=== PATIENT | male | born 1930 | race Caucasian/White ===

== ENCOUNTER 2018-02-24 13:05 | Day surgery (SDC) | payer MEDICARE, OTHER ==
[~2018-02-24] VITALS: Ht 180.3 cm; Wt 76.2 kg
[~2018-02-24 13:05] MED LIST: ASPIRIN EC81 MG PO; COLESTID5 GM PO; COMBIVENT RESPIM4 GM INH; DILTIAZEM HCL30 MG PO; LISINOPRIL-HCT1 EACH PO; MACULAR VITAMI1 EACH PO; OMEPRAZOLE40 MG PO; PROAIR HFA8.5 GM INH; SIMVASTATIN40 MG PO; SINGULAIR10 MG PO; SUCRALFATE1 GM PO
[2018-02-24] MEDS ORDERED: LISINOPRIL-HCT1 EACH PO (13:26)
--- NOTE | 2018-02-27 08:37 | OR ---
[facility] [address], [place] [address] Signed DATE OF OPERATION: SURGEON: Sophia Power MD PREOPERATIVE DIAGNOSES: Large posterior thoracic dense mass, possible lymphoma versus sarcoma. POSTOPERATIVE DIAGNOSES: Large posterior thoracic dense mass, possible lymphoma versus sarcoma. PROCEDURE: Multiple core biopsies of left posterior thoracic mass. ANESTHESIA: 1% lidocaine. INDICATION: This 87-year-old white man is a patient of DALJIT Barraza and was referred with a large dense mass of the left posterior thorax. An MRI was performed, which showed an extensive mass with central necrosis. Clinically, the mass is immovable in relation to the chest wall. A CT scan was then performed, which showed no sign of metastatic disease and the lesion appeared to be intercalated between the ribs in the left posterior thorax, but not destructive to them. The lesion is reminiscent of lymphoma based on some of these findings. On that basis, I have recommended core biopsy be obtained before definitive excision or chemotherapy as deemed appropriate. The risks of bleeding, infection, and other unforeseen complications were reviewed with the patient and his two daughters who attend to him. They understand and he wished to proceed. FINDINGS: The dense mass was about the size as it was before covering at least the size of my outstretched hand. It was very dense and immovable from the chest wall proper. Eleven core biopsies were obtained with a biopsy gun device without complication. DESCRIPTION OF PROCEDURE: The patient was placed in the lateral position in the day surgery procedure room. The left posterior thorax prepared with a chlorhexidine solution and draped sterilely. A 1% lidocaine was injected locally. A small incision was made with an #11 blade and using a 14-gauge biopsy gun, multiple biopsies were taken in various directions through the mass. There was no untoward bleeding. Eleven specimens were obtained in aggregate. A Band-Aid was applied. He tolerated the procedure well. Electronically Signed By: SOPHIA POWER MD 02/27/18 0837 PATIENT NAME: SEBLE LOPEZ OPERATIVE REPORT DATE OF : [birth year] REPORT #: [id number] PHYSICIAN: SOPHIA POWER MD PCP: LAUREL WYNNE PA-C REPORT IS CONFIDENTIAL AND NOT TO BE RELEASED WITHOUT AUTHORIZATION [facility] [address] [place] [id number] Signed ASSESSMENT AND PLAN: The lesion is suggestive of a lymphoma. Half of the specimens were placed for permanent pathology. The other will be freshened on the possibility if this represents lymphoma. If it represents sarcoma, then further treatment planning to include resection will need to be undertaken. MD BHAVYA Carey/MODL /[id number] Copies: ~ Electronically Signed By: SOPHIA POWER MD 02/27/18 0837 PATIENT NAME: SEBLE LOPEZ OPERATIVE REPORT DATE OF : [birth year] REPORT #: [id number] PHYSICIAN: SOPHIA POWER MD PCP: LAUREL WYNNE PA-C REPORT IS CONFIDENTIAL AND NOT TO BE RELEASED WITHOUT AUTHORIZATION
== END 2018-02-24 18:00 | disposition home or self-care (01) ==
LOC: OPS 13:05 → DS 13:05 → EDSTATUS 14:00 → OPS 14:00
PROC: 0J973ZX Drainage of Back Subcutaneous Tissue and Fascia, Percutaneous Approach, Diagnostic (ICD-10-PCS; principal; 2018-02-24)
DX: C85.99 Non-Hodgkin lymphoma, unspecified, extranodal and solid organ sites (principal); E78.5 Hyperlipidemia, unspecified; I10 Essential (primary) hypertension; J45.909 Unspecified asthma, uncomplicated; M15.9 Polyosteoarthritis, unspecified; K21.9 Gastro-esophageal reflux disease without esophagitis; Z88.8 Allergy status to other drugs, medicaments and biological substances; Z85.46 Personal history of malignant neoplasm of prostate; Z85.828 Personal history of other malignant neoplasm of skin
CPT/HCPCS: 88305; 88341; 88342

== ENCOUNTER 2018-05-28 15:49 | Emergency (ER) | payer MEDICARE, OTHER ==
[~2018-05-28] VITALS: Ht 180.3 cm; Wt 74.4 kg
[~2018-05-28 15:49] MED LIST changes: +ALLOPURINOL300 MG PO; +CITRUCEL500 MG PO; +HYDROCODON-ACE1 EA10 PO; +IBUPROFEN600 MG PO; +LORAZEPAM1 MG PO; +MAPAP325 MG PO; +NORCO 5-325 TA1 EACH PO; +ONDANSETRON ODT8 MG PO; +PEPCID20 MG PO; +PREDNISONE20 MG PO; +PROTONIX40 MG PO
[2018-05-30] MEDS ORDERED: SENNA8.6 MG PO (14:13)
== END 2018-05-28 18:33 | disposition home or self-care (01) ==
LOC: ED 15:49
DX: R10.2 Pelvic and perineal pain (principal); I10 Essential (primary) hypertension; E78.00 Pure hypercholesterolemia, unspecified; J45.909 Unspecified asthma, uncomplicated; C85.90 Non-Hodgkin lymphoma, unspecified, unspecified site; Z87.891 Personal history of nicotine dependence; Z88.1 Allergy status to other antibiotic agents; Z88.8 Allergy status to other drugs, medicaments and biological substances; Z79.899 Other long term (current) drug therapy; Z79.82 Long term (current) use of aspirin; Z79.52 Long term (current) use of systemic steroids
CPT/HCPCS: 80053; 81001; 85025; 96374; 99284-25; J1644

== ENCOUNTER 2019-04-14 09:37 | Observation (INO) | payer MEDICARE, OTHER ==
[~2019-04-14] VITALS: Ht 180.3 cm; Wt 74.4 kg
--- OUTSIDE RECORDS SUMMARY | ~2019-04-14 | XMS | Encounter Summary ---
Demographics + + + | Address | [address] | | | [place] [address] | + + + | Home Phone | | + + + | Preferred Language | Unknown | + + + | Marital Status | Single | + + + | Jehovah'S Witness Affiliation | Unknown | + + + | Race | Unknown | + + + | Ethnic Group | Unknown | + + + Author + + + | Author | [facility] | | | and [place] | + + + | Organization | [facility] | | | and [place] | + + + | Address | Unknown | + + + | Phone | Unavailable | + + + Support + + +---------+ + | Name | Relationship | Address | Phone | + + +---------+ + | Vicki Espinoza | ECON | Unknown | | + + +---------+ + Care Team Providers + +------+ + | Care Automatic Glove Turner And Former Name | Role | Phone | + +------+ + PCP | Unavailable | + +------+ + Encounter Details +--------+ + + + + | Date | Type | Department | Care Team | Description | +--------+ + + + + | 08/14/ | Hospital | [facility] | | | | 2002 - | Encounter | MED [facility] CAN[facility] | | | | | | CENTER [address] | | | | 11/12/ | | [place] | | | | 2002 | | [address] | | | | | | [phone] | | | +--------+ + + + + Social History + +-------+ +--------+------+ | Tobacco Use | Types | Packs/Day | Years | Date | | | | | Used | | + +-------+ +--------+------+ | Never Assessed | | | | | + +-------+ +--------+------+ + + + | Sex Assigned at | Date Recorded | | | | + + + | Not on file | | + + + + + + + | Job Start Date | Occupation | Industry | + + + + | Not on file | Not on file | Not on file | + + + + + + + + | Travel History | Travel Start | Travel End | + + + + + + | No recent travel history available. | + + documented as of this encounter Plan of Treatment Not on filedocumented as of this encounter Visit Diagnoses Not on filedocumented in this encounter"
--- OUTSIDE RECORDS SUMMARY | ~2019-04-14 | XMS | Encounter Summary ---
Demographics + + + | Address | [address] | | | [place] [address] | + + + | Home Phone | | + + + | Preferred Language | Unknown | + + + | Marital Status | Single | + + + | Denominational Affiliation | Unknown | + + + | Race | Unknown | + + + | Ethnic Group | Unknown | + + + Author + + + | Author | [facility] | | | and [place] | + + + | Organization | [facility] | | | and [place] | [...] Team Providers + +------+ + | Care Dross Skimmer Name | Role | Phone | + +------+ + PCP | Unavailable | + +------+ + Encounter Details +--------+ + + + + | Date | Type | Department | Care Team | Description | +--------+ + + + + | 04/15/ | Hospital | [facility] | | | | 2008 - | Encounter | MED CTR CANCER | | | | | | CENTER [address] | | | | 04/28/ | | [place] | | | | 2008 | | [address] | | | | | | [phone] | | | +--------+ + + + [...]
--- OUTSIDE RECORDS SUMMARY | ~2019-04-14 | XMS | Encounter Summary ---
Demographics + + + | Address | [address] | | | [place] [address] | + + + | Home Phone | | + + + | Preferred Language | Unknown | + + + | Marital Status | Single | + + + | Buddhist Affiliation | Unknown | + + + | Race | Unknown | + + + | Ethnic Group | Unknown | + + + Author + + + | Author | [facility] | | | and [place] | + + + | Organization | [facility] | | | and [place] [...] Team Providers + +------+ + | Care Medicine Man Name | Role | Phone | + +------+ + PCP | Unavailable | + +------+ + Encounter Details +--------+ + + + + | Date | Type | Department | Care Team | Description | +--------+ + + + + | 08/16/ | Hospital | [facility] | | | | 2006 - | Encounter | MED CTR CANCER | | | | | | CENTER [address] | | | | 08/26/ | | [place] | | | | 2006 | | [address] | | | | | | [phone] | | | +--------+ + + + [...]
--- OUTSIDE RECORDS SUMMARY | ~2019-04-14 | XMS | Encounter Summary ---
Demographics + + + | Address | [address] | | | [place] [address] | + + + | Home Phone | | + + + | Preferred Language | Unknown | + + + | Marital Status | Single | + + + | Amish Affiliation | Unknown | + + + | Race | Unknown | + + + | Ethnic Group | Unknown | + + + Author + + + | Author | [facility] | | | and [place] | + + + | Organization | [facility] | | | and [place] [...] Team Providers + +------+ + | Care Community Arts Centre Manager Name | Role | Phone | + +------+ + | Andrey Davenport MD | PCP | | + +------+ + Reason for Visit + + + | Reason | Comments | + + + | IDT Note | | + + + Encounter Details +--------+ + + + + | Date | Type | Department | Care Team | Description | +--------+ + + + + | 07/10/ | Telephone | [facility] | [facility] | | 2019 | | [facility] | [facility] | | | | | [facility] [address] | | | | [address] | | | | | | [place] [address] | | | | | | [phone] | | | +--------+ + + + + Social History + +-------+ +--------+ + | Tobacco Use | Types | Packs/Day | Years | Date | | | | | Used | | + +-------+ +--------+ + | Former Smoker | | 1 | 30 | Quit: 1985 | + +-------+ +--------+ + + +---+---+---+ | Smokeless Tobacco: | | | | | Never Used | | | | + +---+---+---+ + + +---------+ + | Alcohol Use | Drinks/Week | oz/Week | Comments | + + +---------+ + | No | | | Quit 4 years ago, | + + +---------+ + + + + | Sex Assigned at [...]
--- OUTSIDE RECORDS SUMMARY | ~2019-04-14 | XMS | Clinical Summary ---
Demographics + + + | Address | [address] | | | [place] [address] | + + + | Home Phone | | + + + | Preferred Language | Unknown | + + + | Marital Status | Single | + + + | Yarsanism Affiliation | Unknown | + + + | Race | White | + + + | Ethnic Group | Not or | + + + Author + + + | Author | [facility] | + + + | Organization | [facility] | + + + | Address | Unknown | + + + | Phone | Unavailable | + + + Support + + +---------+ + | Name | Relationship | Address | Phone | + + +---------+ + | Vicki Espinoza | ECON | Unknown | | + + +---------+ + Care Team Providers + +------+ + | Care Title I Instructional Assistant Name | Role | Phone | + +------+ + | Roxana Kemp PA-C | PCP | | + +------+ + Source Comments FIONA is fully live on both [facility] and [facility] InPatient.[facility] Allergies + + + + + + | Active Allergy | Reactions | Severity | Noted | Comments | | | | | Date | | + + + + + + | Fluvastatin | Myalgia | | 12/27/19 | | | | | | 18 | | + + + + + + | Levofloxacin | Rash | | 12/27/19 | | | | | | 18 | | + + + + + + | Pravastatin | Myalgia | | 12/27/19 | | | | | | 18 | | + + + + + + Medications + + + +---------+------+------+-------+ | Medication | Sig | Dispensed | Refills | Star | End | Statu | | | | | | t | Date | s | | | | | | Date | | | + + + +---------+------+------+-------+ | montelukast 10 mg | TAKE ONE TABLET BY | | 0 | | | Activ | | oral tablet | MOUTH EVERY DAY | | | | | e | + + + +---------+------+------+-------+ | | INHALE 1 PUFF BY | | 0 | | | Activ | | ipratropium-albutero | MOUTH FOUR TIMES A | | | | | e | | l 20-100 | DAY | | | | | | | mcg/actuation | | | | | | | | inhalation mist | | | | | | | + + + +---------+------+------+-------+ | aspirin EC 81 mg | Take 81 mg by mouth | | 0 | | | Activ | | oral tablet,delayed | once daily. | | | | | e | | release (DR/EC) | | | | | | | + + + +---------+------+------+-------+ | MEDICATION | Indications: MH | | 0 | | | Activ | | HELPIndications: MH | Macular Health | | | | | e | | Macular Health | | | | | | | + + + +---------+------+------+-------+ | omeprazole 40 mg | Take 40 mg by mouth | | 0 | | | Activ | | oral capsule,delayed | once daily. | | | | | e | | release(DR/EC) | | | | | | | + + + +---------+------+------+-------+ | albuterol 90 | Inhale by mouth | | 0 | | | Activ | | mcg/actuation | every four hours as | | | | | e | | inhalation HFA | needed. | | | | | | | aerosol inhaler | | | | | | | + + + +---------+------+------+-------+ | simvastatin 40 mg | Take 40 mg by mouth | | 0 | | | Activ | | oral tablet | once daily in the | | | | | e | | | evening. | | | | | | + + + +---------+------+------+-------+ Active Problems + + + | Problem | Noted Date | + + + | Epiretinal membrane, right eye | 12/26/2017 | + + + + + | Last Assessment & Plan: Mild | | -observe | + + + + + | Lamellar macular hole, right eye | 12/26/2017 | + + + + + | Last Assessment & Plan: Mild anatomical changes and symptoms | | tolerable.-Amsler grid to self monitor-surgery not indicated | |-surgery not indicated | + + + + + | Vitreomacular traction, left eye | 12/26/2017 | + + + + + | Last Assessment & Plan: Minimal symptoms, traction visible on | | OCT does not warrant surgery.-RD precautions given-note to | | [place] | + + Family History + + +------+ + | Medical History | Relation | Name | Comments | + + +------+ + | Blindness | Neg Hx | | | + + +------+ + | Cataracts | Neg Hx | | | + + +------+ + | Diabetes | Neg Hx | | | + + +------+ + | Glaucoma | Neg Hx | | | + + +------+ + | Macular degeneration | Neg Hx | | | + + +------+ + | Retinal detachment | Neg Hx | | | + + +------+ + Social History + +-------+ +--------+------+ | Tobacco Use | Types | Packs/Day | Years | Date | | | | | Used | | + +-------+ +--------+------+ | Former Smoker | | | | | + +-------+ +--------+------+ + +---+---+---+ | Smokeless Tobacco: | | | | | Never Used | | | | + +---+---+---+ + + + | Sex Assigned at [...] recent travel history available. | + + Last Filed Vital Signs Not on file Plan of Treatment + + + + + | Health Maintenance | Due Date | Last Done | Comments | + + + + + | Pneumococcal | | | | | vaccination (1 of 2 | 6 | | | | - PCV13) | | | | + + + + + | Influenza (Flu) | | 01/26/2017, 02/10/2016 | | | vaccination (#1) | 9 | | | + + + + + Results Not on filefrom Last 3 Months Insurance + +--------+ +--------+ + +--------+ | Payer | Benefi | Subscriber | Effect | Phone | Address | Type | | | t Plan | ID | yulisa | | | | | | / | | Dates | | | | | | Group | | | | | | + +--------+ +--------+ + +--------+ | MEDICARE | MEDICA | xxxxxxxxxxx | 10/27/18 | [phone] | [address] | Med[address] | | | RE A & | | [address] | [address] | [address] | | | [address] | | sent | | [place] | | | | | | | | [phone] | | + +--------+ +--------+ + +--------+ | MODA MEDICARE | MODA | xxxxxxxxx | 04/29/19 | [phone] | [address] | POS | | SUPPLEMENT | MEDICA | | 17-Pre | 4 | [id number] | | | | RE | | sent | | [place], | | | | [place]PPLE | | | | [place] [address] | | | | MENT | | | | | | + +--------+ +--------+ + +--------+ + +--------+ +--------+ + + | Guarantor Name | Accoun | Relation to | Date | Phone | Billing Address | | | t Type | Patient | of | | | | | | | | | | + +--------+ +--------+ + + | Sukh Bolden | Person | Self [birth year] | [address] | | | al/Fam | | 1931 | [phone] | [place] | | | [place] | | | [address] (Home) | [phone] | + +--------+ +--------+ + +"
--- OUTSIDE RECORDS SUMMARY | ~2019-04-14 | XMS | Encounter Summary ---
Demographics + + + | Address | [address] | | | [place] [address] | + + + | Home Phone | | + + + | Preferred Language | Unknown | + + + | Marital Status | Single | + + + | Sabianist Affiliation | Unknown | + + + | Race | Unknown | + + + | Ethnic Group | Unknown | + + + Author + + + | Author | [facility] | | | and [place] | + + + | Organization | [facility] | | | and [...] Team Providers + +------+ + | Care Universal Winding Machine Operator Name | Role | Phone | + +------+ + PCP | Unavailable | + +------+ + Encounter Details +--------+ + + + + | Date | Type | Department | Care Team | Description | +--------+ + + + + | 08/11/ | Hospital | [facility] | Jordan Escalera MD | | | 1995 | Encounter | MED CTR GENERIC OP | [address] | | | | | CONV DEPT [address] | [address] [place] [address] | | | | | [place], | [id number] | | | | | [place] [address] | | | | | | [phone] | | | +--------+ + + + [...]
--- OUTSIDE RECORDS SUMMARY | ~2019-04-14 | XMS | Encounter Summary ---
Demographics + + + | Address | [address] | | | [place] [address] | + + + | Home Phone | | + + + | Preferred Language | Unknown | + + + | Marital Status | Single | + + + | Mormon Affiliation | Unknown | + + + | Race | Unknown | + + + | Ethnic Group | Unknown | + + + Author + + + | Author | [facility] | | | and [place] | + + + | Organization | [facility] | | | and [place] [...] Team Providers + +------+ + | Care Cashier Associate Name | Role | Phone | + +------+ + | Andrey Davenport MD | PCP | | + +------+ + Reason for Visit + + + | Reason | Comments | + + + | Under Treatment | | + + + Encounter Details +--------+ + + + + | Date | Type | Department | Care Team | Description | +--------+ + + + + | 08/06/ | Hospital | [facility] | Marilyn Monroy | Diffuse large B-cell | | 2019 | Encounter | MED CTR RADIATION | MD Anupama [address] | lymphoma of | | | | [facility] [address] | [place], [place] | extranodal site | | | | [address] [place] [address] | [address] | excluding spleen and | | | | [place] [address] | | other solid organs | | | | [phone] | | (HCC) (Primary Dx) | +--------+ + + + + Social [...] + + documented as of this encounter Last Filed Vital Signs + + + + + | Vital Sign | Reading | Time Taken | Comments | + + + + + | Blood Pressure | 137/63 | 08/06/2018 10:37 AM | | | | | PDT | | + + + + + | Pulse | 94 | 08/06/2018 10:37 AM | | | | | PDT | | + + + + + | Temperature | 36.2 C (97.2 F) | 08/06/2018 10:37 AM | | | | | PDT | | + + + + + | Respiratory Rate | 16 | 08/06/2018 10:37 AM | | | | | PDT | | + + + + + | Oxygen Saturation | 95% | 08/06/2018 10:37 AM | | | | | PDT | | + + + + + | Inhaled Oxygen | - | - | | | Concentration | | | | + + + + + | Weight | 75.4 kg (166 lb 3.6 | 08/06/2018 10:37 AM | | | | oz) | PDT | | + + + + + | Height | - | - | | + + + + + | Body Mass Index | 23.8 | 07/04/2018 8:26 AM | | | | | PST | | + + + + + documented in this encounter Medications at Time of Discharge + + + +---------+--------+ + | Medication | Sig | Dispensed | Refills | Start | End Date | | | | | | Date | | + + + +---------+--------+ + | albuterol | Inhale 1 puff into | | 0 | | | | (PROVENTIL) 90 | the lungs EVERY 4 TO | | | | | | mcg/puff inhaler (ED | 6 HOURS NEEDED. | | | | | | prepack) | | | | | | + + + +---------+--------+ + | | Inhale 1 puff into | | 0 | | | | albuterol-ipratropiu | the lungs 4 times | | | | | | m (COMBIVENT | daily. | | | | | | RESPIMAT) 100-20 | | | | | | | mcg/puff inhaler | | | | | | + + + +---------+--------+ + | ASPIRIN 81 PO | Take 1 tablet by | | 0 | | | | | mouth Daily. | | | | | + + + +---------+--------+ + | Colestipol HCl | Take 1 Dose by mouth | | 0 | | | | (COLESTID) 5 g GRAN | Daily. | | | | | + + + +---------+--------+ + | | Take 1 tablet by | | 0 | | | | lisinopril-hydrochlo | mouth Daily. | | | | | | rothiazide | | | | | | | (PRINZIDE,ZESTORETIC | | | | | | | ) 20-12.5 MG per | | | | | | | tablet | | | | | | + + + +---------+--------+ + | montelukast | Take 10 mg by mouth | | 0 | | | | (SINGULAIR) 10 mg | nightly. | | | | | | tablet | | | | | | + + + +---------+--------+ + | Multiple | Take 1 tablet by | | 0 | | | | Vitamins-Minerals | mouth Daily. | | | | | | (MACULAR VITAMIN | | | | | | | BENEFIT PO) | | | | | | + + + +---------+--------+ + | pantoprazole | Take 40 mg by mouth | | 0 | | | | (PROTONIX) 40 mg | every morning | | | | | | tablet | (before breakfast). | | | | | + + + +---------+--------+ + | Polyethyl | Apply to eye 4 | | 0 | | | | Glycol-Propyl Glycol | times daily. | | | | | | (SYSTANE OP) | | | | | | + + + +---------+--------+ + | simvastatin | Take 40 mg by mouth | | 0 | | | | (ZOCOR) 40 mg tablet | nightly. | | | | | + + + +---------+--------+ + | Methylcellulose, | Take 1,000 mg by | | 0 | | | | Laxative, (CITRUCEL) | mouth Daily as | | | | 9 | | 500 MG TABS | needed. | | | | | + + + +---------+--------+ + | raNITIdine | Take 150 mg by mouth | | 0 | | | | (ZANTAC) 150 mg | 2 times daily. | | | | 9 | | tablet | | | | | | + + + +---------+--------+ + documented as of this encounter Progress Notes Marilyn Monroy MD - 08/06/2018 10:39 AM PDT Radiation Oncology Weekly On Treatment Note Diagnosis: ICD-10-CM ICD-9-CM 1. 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 Corre ctions were applied as necessary. Allergies Allergen Reactions Levofloxacin Hives Fluvastatin Other (See Comments) Pravastatin Other (See Comments) Current Outpatient Medications on File Prior to Encounter Medication Sig Dispense Refill albuterol (PROVENTIL) 90 mcg/puff inhaler (ED prepack) Inhale 1 puff into the lungs TRAVIS RY 4 TO 6 HOURS NEEDED. albuterol-ipratropium (COMBIVENT RESPIMAT) 100-20 mcg/puff inhaler Inhale 1 puff into t he lungs 4 times daily. ASPIRIN 81 PO Take 1 tablet by mouth Daily. Colestipol HCl (COLESTID) 5 g GRAN Take 1 Dose by mouth Daily. lisinopril-hydrochlorothiazide (PRINZIDE,ZESTORETIC) 20-12.5 MG per tablet Take 1 table t by mouth Daily. Methylcellulose, Laxative, (CITRUCEL) 500 MG TABS Take 1,000 mg by mouth Daily as neede d. montelukast (SINGULAIR) 10 mg tablet Take 10 mg by mouth nightly. Multiple Vitamins-Minerals (MACULAR VITAMIN BENEFIT PO) Take 1 tablet by mouth Daily. pantoprazole (PROTONIX) 40 mg tablet Take 40 mg by mouth every morning (before breakfas t). Polyethyl Glycol-Propyl Glycol (SYSTANE OP) Apply to eye 4 times daily. raNITIdine (ZANTAC) 150 mg tablet Take 150 mg by mouth 2 times daily. simvastatin (ZOCOR) 40 mg tablet Take 40 mg by mouth nightly. No current facility-administered medications on file prior to encounter. Pain assessment: Location: NA Pain Level: PAIN PROG PAIN LEVEL: 0 Wt Readings from Last 3 Encounters: 08/06/18 75.4 kg (166 lb 3.6 oz) 07/31/18 75.7 kg (166 lb 14.2 oz) 07/24/18 75.1 kg (165 lb 9.1 oz) Vitals: 08/06/18 1037 BP: 137/63 Pulse: 94 Resp: 16 Temp: 36.2 C (97.2 F) TempSrc: Temporal SpO2: 95% Weight: 75.4 kg (166 lb 3.6 oz) Physical Exam Constitutional: He appears well-developed and well-nourished. Neurological: He is alert. Skin: No rash noted. No erythema. Psychiatric: He has a normal mood and affect. Physician Assessment: 08/06/18: Sotero completes radiation today. He has done very well with treatment. No botherso me side-effects. Continues to have mild-moderate fatigue, actually felt some improvement in energy during radiation as he recovered from chemotherapy. Toxicities reviewed in nursing note. Disposition: completed treatment as planned. - Follow-up with me in 3 months, sooner if needed. - Follow-up with Dr. Flynn in [place] as directed. 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
--- OUTSIDE RECORDS SUMMARY | ~2019-04-14 | XMS | Encounter Summary ---
Demographics + + + | Address | [address] | | | [place] [address] | + + + | Home Phone | | + + + | Preferred Language | Unknown | + + + | Marital Status | Single | + + + | Denominational Affiliation | Unknown | + + + | Race | Unknown | + + + | Ethnic Group | Unknown | + + + Author + + + | Author | [facility] | | | and [place] | + + + | Organization | [facility] | | | and [place] [...] Team Providers + +------+ + | Care Exhibit Electrician Name | Role | Phone | + +------+ + | Andrey Davenport MD | PCP | | + +------+ + Encounter Details +--------+ + + + + | Date | Type | Department | Care Team | Description | +--------+ + + + + | 07/02/ | Imaging | [facility] | Provider, | | | 2019 | Exam | MED CTR EXTERNAL | MD [address] | | | | | IMAGING | [address] | | | | | [phone] | [place] [address] | | +--------+ + + + + [...] Not on filedocumented as of this encounter Procedures + +--------+ + + + | Procedure Name | Priori | Date/Time | Associated Diagnosis | Comments | | | ty | | | | + +--------+ + + + | CT CHEST ABDOMEN W | Routin | 02/13/2018 | | Results for this | | WO CONTRAST | e | 8:55 AM | | procedure are in the | | | | PDT | | results section. | + +--------+ + + + documented in this encounter Results CT Chest Abdomen w wo Contrast (02/13/2018 8:55 AM PDT) + + | Specimen | + + | | + + + + + | Narrative | Performed At | + + + | External films for comparison only | [facility] | | | | | No results will be in the chart. | | + + + + +---------+ + + | Performing | Address | City/State/Zipcode | Phone Number | | Organization | | | | + +---------+ + + | [facility] | | | | + +---------+ + + documented in this encounter Visit Diagnoses Not on filedocumented in this encounter"
--- OUTSIDE RECORDS SUMMARY | ~2019-04-14 | XMS | Encounter Summary ---
Demographics + + + | Address | [address] | | | [place] [address] | + + + | Home Phone | | + + + | Preferred Language | Unknown | + + + | Marital Status | Single | + + + | Bahai Affiliation | Unknown | + + + | Race | Unknown | + + + | Ethnic Group | Unknown | + + + Author + + + | Author | [facility] | | | and [place] | + + + | Organization | [facility] | | | and [...] Team Providers + +------+ + | Care Soft Sugar Cutter Name | Role | Phone | + +------+ + PCP | Unavailable | + +------+ + Encounter Details +--------+ + + + + | Date | Type | Department | Care Team | Description | +--------+ + + + + | 03/19/ | Hospital | [facility] | | | | 2006 - | Encounter | MED CTR CANCER | | | | | | CENTER [address] | | | | 03/28/ | | [place] | | | | 2006 | | [address] | | | | | | [phone] | | | +--------+ + + + [...]
--- OUTSIDE RECORDS SUMMARY | ~2019-04-14 | XMS | Clinical Summary ---
Demographics + + + | Address | [address] | | | [place] [address] | + + + | Home Phone | | + + + | Preferred Language | Unknown | + + + | Marital Status | Single | + + + | Moravian Affiliation | Unknown | + + + | Race | Unknown | + + + | Ethnic Group | Unknown | + + + Author + + + | Author | [facility] | | | and [place] | + + + | Organization | [facility] | | | and [place] [...] Team Providers + +------+ + | Care Streetcar Repairer Helper Name | Role | Phone | + +------+ + | Lonnie Ortega MD | PCP | | + +------+ + Allergies + + + + + + | Active Allergy | Reactions | Severity | Noted | Comments | | | | | Date | | + + + + + + | Fluvastatin | Other (See Comments) | | 12/27/19 | | | | | | 18 | | + + + + + + | Levofloxacin | Hives | High | | | + + + + + + | Pravastatin | Other (See Comments) | | | | + + + + + + Medications + + + +---------+------+------+-------+ | Medication | Sig | Dispensed | Refills | Star | End | Statu | | | | | | t | Date | s | | | | | | Date | | | + + + +---------+------+------+-------+ | ASPIRIN 81 PO | Take 1 tablet by | | 0 | | | Activ | | | mouth Daily. | | | | | e | + + + +---------+------+------+-------+ | albuterol | Inhale 1 puff into | | 0 | | | Activ | | (PROVENTIL) 90 | the lungs EVERY 4 TO | | | | | e | | mcg/puff inhaler (ED | 6 HOURS NEEDED. | | | | | | | prepack) | | | | | | | + + + +---------+------+------+-------+ | Colestipol HCl | Take 1 Dose by mouth | | 0 | | | Activ | | (COLESTID) 5 g GRAN | Daily. | | | | | e | + + + +---------+------+------+-------+ | | Inhale 1 puff into | | 0 | | | Activ | | albuterol-ipratropiu | the lungs 4 times | | | | | e | | m (COMBIVENT | daily. | | | | | | | RESPIMAT) 100-20 | | | | | | | | mcg/puff inhaler | | | | | | | + + + +---------+------+------+-------+ | | Take 1 tablet by | | 0 | | | Activ | | lisinopril-hydrochlo | mouth Daily. | | | | | e | | rothiazide | | | | | | | | (PRINZIDE,ZESTORETIC | | | | | | | | ) 20-12.5 MG per | | | | | | | | tablet | | | | | | | + + + +---------+------+------+-------+ | simvastatin | Take 40 mg by mouth | | 0 | | | Activ | | (ZOCOR) 40 mg tablet | nightly. | | | | | e | + + + +---------+------+------+-------+ | montelukast | Take 10 mg by mouth | | 0 | | | Activ | | (SINGULAIR) 10 mg | nightly. | | | | | e | | tablet | | | | | | | + + + +---------+------+------+-------+ | Multiple | Take 1 tablet by | | 0 | | | Activ | | Vitamins-Minerals | mouth Daily. | | | | | e | | (MACULAR VITAMIN | | | | | | | | BENEFIT PO) | | | | | | | + + + +---------+------+------+-------+ | pantoprazole | Take 40 mg by mouth | | 0 | | | Activ | | (PROTONIX) 40 mg | every morning | | | | | e | | tablet | (before breakfast). | | | | | | + + + +---------+------+------+-------+ | Polyethyl | Apply to eye 4 | | 0 | | | Activ | | Glycol-Propyl Glycol | times daily. | | | | | e | | (SYSTANE OP) | | | | | | | + + + +---------+------+------+-------+ | ibuprofen (ADVIL, | Take 200 mg by mouth | | 0 | | | Activ | | MOTRIN) 200 mg | every 6 hours as | | | | | e | | tablet | needed. Takes | | | | | | | | occasionally | | | | | | + + + +---------+------+------+-------+ | Famotidine (PEPCID | Take by mouth. As | | 0 | | | Activ | | PO) | needed | | | | | e | + + + +---------+------+------+-------+ Active Problems + + + | Problem | Noted Date | + + + | Port-A-Cath in place | 12/25/2018 | + + + + + | Overview: Added automatically from request for surgery [id number] | + + + + + | S/P bilateral inguinal hernia repair | 12/01/2018 | + + + | Bilateral inguinal hernia | 09/04/2018 | + + + + + | Overview: Added automatically from request for surgery [id number] | + + + + + | Allergic rhinitis | 09/02/2018 | + + + + + | Overview: No comments entered for problem. | + + + + + | Chronic wheezy bronchitis | 09/02/2018 | + + + + + | Overview: No comments entered for problem. | + + + + + | Malignant tumor of prostate | 09/02/2018 | + + + + + | Overview: No comments entered for problem. | + + + + + | Emigdio major | 09/02/2018 | + + + + + | Overview: No comments entered for problem. 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 | + + + + + | Hyperlipidemia | 02/10/2018 | + + + + + | Overview: No comments entered for problem. | + + + + + | Epiretinal membrane, right eye | 12/26/2017 | + + + + + | Overview: Last Assessment & Plan: | | Mild | | -observe | + + + + + | Lamellar macular hole, right eye | 12/26/2017 | + + + + + | Overview: Last Assessment & Plan: | | Mild anatomical changes and symptoms tolerable. | | -Amsler grid to self monitor | | -surgery not indicated | + + + + + | Vitreomacular traction, left | 12/26/2017 | + + + + + | Overview: Last Assessment & Plan: Minimal symptoms, traction | | visible on OCT does not warrant surgery.-RD precautions | | given-note to Dr. Hansen | |-note to Dr. Hansen | + + + +---+ | Hiatal hernia | | + +---+ | Diverticulitis | | + +---+ Immunizations + + + + | Name | Administration Dates | Next Due | + + + + | INFLUENZA 65 Y OR >, | 01/29/2018, 12/26/2016, 01/31/2016, | | | TRIVALENT HIGH-DOSE | 02/17/2015, 02/18/2014 | | + + + + | INFLUENZA TRIV | 02/12/2012, 02/27/2011, 02/07/2010, | | | W/PRES(PED/ADOL/ADUL | 02/09/2008, 02/04/2007 | | | T),MULTIDOSE | | | + + + + | INFLUENZA, [id number], | 04/16/2009 | | | INACTIVATED | | | + + + + | INFLUENZA, [id number], | 04/16/2009 | | | UNSPECIFIED | | | + + + + | INFLUENZA, | 01/29/2018, 01/26/2017, 02/10/2016, | | | UNSPECIFIED | 02/12/2012, 02/27/2011, 02/07/2010, | | | FORMULATION | 02/09/2008, 02/04/2007 | | + + + + | PNEUMOCOCCAL | 12/21/2014 | | | CONJUGATE 13-VALENT | | | | (PCV13) | | | + + + + | PNEUMOCOCCAL | 02/06/2016 | | | POLYSACCHARIDE | | | | 23-VALENT (PPSV23) | | | + + + + | ZOSTER, 1 DOSE | 11/07/2011 | | | (ZOSTAVAX) | | | + + + + Family History + + +------+ + | Medical History | Relation | Name | Comments | + + +------+ + | Stomach cancer | Brother | | | + + +------+ + | Cancer | Brother | | lukemia | + + +------+ + | Breast cancer | Daughter | | | + + +------+ + | Cancer | Daughter | | Melanoma | + + +------+ + | Colon cancer | Father | | | + + +------+ + | Stomach cancer | Mother | | | + + +------+ + | Stomach cancer | Sister | | | + + +------+ + | Stomach cancer | Sister | | | + + +------+ + | Cancer | Son | | | + + +------+ + + +------+ + + | Relation | Name | Status | Comments | + +------+ + + | Brother | | | | + +------+ + + | Brother | | | | + +------+ + + | Daughter | | | | + +------+ + + | Daughter | | | | + +------+ + + | Father | | | | + +------+ + + | Mother | | | | + +------+ + + | Sister | | | | + +------+ + + | Sister | | | | + +------+ + + | Son | | | | + +------+ + + Social History + +-------+ +--------+ [...] | + + Last Filed Vital Signs + + + + + | Vital Sign | Reading | Time Taken | Comments | + + + + + | Blood Pressure | 126/66 | 01/07/2019 8:55 AM | | | | | PDT | | + + + + + | Pulse | 73 | 01/07/2019 8:55 AM | | | | | PDT | | + + + + + | Temperature | 36.4 C (97.5 F) | 01/07/2019 8:55 AM | | | | | PDT | | + + + + + | Respiratory Rate | 16 | 11/05/2018 10:43 AM | | | | | PDT | | + + + + + | Oxygen Saturation | 99% | 01/07/2019 8:55 AM | | | | | PDT | | + + + + + | Inhaled Oxygen | - | - | | | Concentration | | | | + + + + + | Weight | 76.1 kg (167 lb 12.3 | 01/07/2019 8:55 AM | | | | oz) | PDT | | + + + + + | Height | 177.8 cm (5' 10") | 01/07/2019 8:55 AM | | | | | PDT | | + + + + + | Body Mass Index | 24.07 | 01/07/2019 8:55 AM | | | | | PDT | | + + + + + Plan of Treatment + + + + + | Health Maintenance | Due Date | Last Done | Comments | + + + + + | Vaccine: | | | | | Dtap/Tdap/Td (1 - | 0 | | | | Tdap) | | | | + + + + + | Vaccine: Zoster (2 | | 11/07/2011 | | | of 3) | 2 | | | + + + + + | Adult Annual | | | | | Wellness Visit | 8 | | | + + + + + | Vaccine: Influenza | | 01/29/2018, 01/29/2018, | | | (#1) | 9 | 01/26/2017, Additional history | | | | | exists | | + + + + + | Vaccine: | Completed | 02/06/2016, 12/21/2014 | | | Pneumococcal 65+ | | | | + + + [...] + +--------+ | MEDICARE | MEDICA | [id number] | 10/27/18 | [phone] | | Medica | | | RE | | 96-Pre | 5 | | re | | | PART A | | sent | | | | | | AND B | | | | | | + +--------+ +--------+ + +--------+ | MODA | MODA | [id number] | 04/29/19 | [phone] | [address] | Indemn | | | HEALTH | | 17-Pre | 9 | [id number] | ity | | | MDCR | | sent | | [place], | | | | [place] | | | | [place] [address] | | + +--------+ +--------+ + +--------+ [...] Self | [birth year] | [address] | | | al/Fam | | 1931 | [phone] | [place] [address] | | | leigha | | | 8 (Home) | | + +--------+ +--------+ + + Advance Directives + + + + + | Type | Date Recorded | Patient | Explanation | | | | Health Care Analyst | | + + + + + | Power of | | | | | Stock Lifter | | | | + + + + + | Advance | | | | | Directive | | | | + + + + +
--- OUTSIDE RECORDS SUMMARY | ~2019-04-14 | XMS | Encounter Summary ---
Demographics + + + | Address | [address] | | | [place] [address] | + + + | Home Phone | | + + + | Preferred Language | Unknown | + + + | Marital Status | Single | + + + | Cheondoism Affiliation | Unknown | + + + | Race | Unknown | + + + | Ethnic Group | Unknown | + + + Author + + + | Author | [facility] | | | and [place] | + + + | Organization | [facility] [...] Team Providers + +------+ + | Care Information Systems Security Developer Name | Role | Phone | + +------+ + PCP | Unavailable | + +------+ + Encounter Details +--------+ + + + + | Date | Type | Department | Care Team | Description | +--------+ + + + + | 03/19/ | Hospital | [facility] | | | | 2006 - | Encounter | MED CTR CANC[facility] | | | | | | CENTER [address] | | | | 03/28/ | | [place] | | | | 2006 | | [address] | | | | | | [phone] | | | +--------+ + + + [...]
--- OUTSIDE RECORDS SUMMARY | ~2019-04-14 | XMS | Encounter Summary ---
Demographics + + + | Address | [address] | | | [place] [address] | + + + | Home Phone | | + + + | Preferred Language | Unknown | + + + | Marital Status | Single | + + + | Judaism Affiliation | Unknown | + + + | Race | Unknown | + + + | Ethnic Group | Unknown | + + + Author + + + | Author | [facility] | | | and [place] | + + + | Organization | [facility] | | [...] Team Providers + +------+ + | Care Inside Sales Person Name | Role | Phone | + +------+ + | Lonnie Ortega MD | PCP | | + +------+ + Reason for Referral Evaluate & Treat (Routine) +--------+ + + + + + | Status | Reason | Specialty | Diagnoses / | Referred By | Referred To | | | | | Procedures | Contact | Contact | +--------+ + + + + + | Closed | Specialty | Surgery / | Diagnoses | Wilfred, | Wilfred, | | | Services | General | Other | MD Ciara | MD Ciara | | | Required | Surgery | specified | [address] | [address] | | | | | type of | [place], | | | | | non-Hodgkin | [place], [place] | [place] [address] | | | | | lymphoma, | [address] | Phone: | | | | | unspecified | Phone: | [phone] | | | | | body region | [phone] | Fax: | | | | | (HCC) | Fax: | [phone] | | | | | | [phone] | | +--------+ + + + + + Reason for Visit + + + | Reason | Comments | + + + | New Patient | Power port removal | + + + Evaluate & Treat (Routine) + +--------+ + + + + | Status | Reason | Specialty | Diagnoses / | Referred By | Referred To | | | | | Procedures | Contact | Contact | + +--------+ + + + + | Authorized | | General | Diagnoses | | [facility] | | | | Surgery | Non-Hodgkin | Gee, | General | | | | | lymphoma, | Michael C, | Surgery [address] | | | | | unspecified, | [address] | | | | | unspecified | [place], | [place], | | | | | site (HCC) | [address] | [place] [address] | | | | | Procedures | [place], | Phone: | | | | | [place] [facility] | [place] [address] | [phone] | | | | | OUTPATIENT | | Fax: | | | | | NEW 45 | | [phone] | | | | | MINUTES | | | + +--------+ + + + + Encounter Details +--------+---------+ + + + | Date | Type | Department | Care Team | Description | +--------+---------+ + + + | 12/25/ | Office | [facility] | Ciara Hardin MD | Other specified type | | 2019 | Visit | SURGERY [address] | [address] [place] | of non-Hodgkin | | | | ST [place], [place] | [place] [address] | lymphoma, | | | | [address] | [phone] | unspecified body | | | | [phone] | | region (HCC) | | | | | | (Primary Dx); | | | | | | Diffuse large B-cell | | | | | | lymphoma of | | | | | | extranodal site | | | | | | excluding spleen and | | | | | | other solid organs | | | | | | (HCC) | +--------+---------+ + + + Social History + +-------+ [...] + + + | Blood Pressure | 108/52 | 12/25/2018 9:47 AM | | | | | PDT | | + + + + + | Pulse | 82 | 12/25/2018 9:47 AM | | | | | PDT | | + + + + + | Temperature | 36.6 C (97.9 F) | 12/25/2018 9:47 AM | | | | | PDT | | + + + + + | Respiratory Rate | - | - | | + + + + + | Oxygen Saturation | 96% | 12/25/2018 9:47 AM | | | | | PDT | | + + + + + | Inhaled Oxygen | - | - | | | Concentration | | | | + + + + + | Weight | 73.1 kg (161 lb 2.5 | 12/25/2018 9:47 AM | | | | oz) | PDT | | + + + + + | Height | 178 cm (5' 10.08") | 12/25/2018 9:47 AM | | | | | PDT | | + + + + + | Body Mass Index | 23.07 | 12/25/2018 9:47 AM | | | | | PDT | | + + + + + documented in this encounter Progress Notes Ciara Hardin MD - 12/25/2018 10:00 AM PDT Consult Note Referring Provider: Michael Flynn, * HISTORY OF PRESENT ILLNESS Sukh Bolden is a 88 y.o. male patient of Lonnie Ortega MD here today for evaluation of power port removal. Physician notes: Sotero is an 88-year-old male here for evaluation of PowerPort removal. He was recently diagn osed with and treated for lymphoma. He is now thought to be in remission and is no longer i n need of his PowerPort. Port was placed in February 2018 in the left chest with a catheter in the left subclavian vein. He states over and to the lateral side of the port is tender to palpation. AI Score: 5 AI Risk Score 12/25/2018 Risk for Obstructive Sleep Apnea Suspected Risk for AI Opioid Risk Tool (ORT): Total Score 0 (12/25/18 5942) Interpretation of Total Score: 0 to 3 = Low risk: 6% chance of developing problematic behav iors, 4 to 7 = Moderate risk: 28% chance of developing problematic behaviors, 8 or more = Hi gh risk: 90% chance of developing problematic behaviors. Imaging/ Pathology: none Lonnie Ortega MD's notes were reviewed in clinic today. PAST MEDICAL HISTORY Past Medical History: Diagnosis Date Asthma Basal cell carcinoma of nose COPD (chronic obstructive pulmonary disease) (HCC) Diverticulitis GERD (gastroesophageal reflux disease) Hiatal hernia Hyperlipidemia Hypertension Kidney cyst, acquired Macular degeneration disease Non Hodgkin's lymphoma (HCC) Osteoarthritis Prostate cancer (HCC) s/p external beam radiation Schatzki's ring of distal esophagus s/p dilatiation Past Surgical History: Procedure Laterality Date BRACHYTHERAPY prostate seed implants per Dr. Alaniz COLONOSCOPY ESOPHAGEAL DILATATION X3 HERNIA REPAIR Bilateral 10/06/2018 Robotic assisted laparoscopic bilateral inguinal herniorrhaphy with mesh: Dr. Graham Whaley INSERT VENOUS ACCESS PORT 03/06/[address] De La Rosa UPPER GASTROINTESTINAL ENDOSCOPY Allergies: Allergies Allergen Reactions Levofloxacin Hives Fluvastatin Other (See Comments) Pravastatin Other (See Comments) Medications: Outpatient Encounter Medications as of 12/25/2018 Medication Sig Dispense Refill albuterol (PROVENTIL) 90 mcg/puff inhaler (ED prepack) Inhale 1 puff into the lungs TRAVIS RY 4 TO 6 HOURS NEEDED. albuterol-ipratropium (COMBIVENT RESPIMAT) 100-20 mcg/puff inhaler Inhale 1 puff into t he lungs 4 times daily. ASPIRIN 81 PO Take 1 tablet by mouth Daily. Colestipol HCl (COLESTID) 5 g GRAN Take 1 Dose by mouth Daily. Famotidine (PEPCID PO) Take by mouth. As needed ibuprofen (ADVIL, MOTRIN) 200 mg tablet Take 200 mg by mouth every 6 hours as needed. T akes occasionally lisinopril-hydrochlorothiazide (PRINZIDE,ZESTORETIC) 20-12.5 MG per tablet Take 1 table t by mouth Daily. [DISCONTINUED] Methylcellulose, Laxative, (CITRUCEL) 500 MG TABS Take 1,000 mg by mouth Daily as needed. montelukast (SINGULAIR) 10 mg tablet Take 10 mg by mouth nightly. Multiple Vitamins-Minerals (MACULAR VITAMIN BENEFIT PO) Take 1 tablet by mouth Daily. pantoprazole (PROTONIX) 40 mg tablet Take 40 mg by mouth every morning (before breakfas t). Polyethyl Glycol-Propyl Glycol (SYSTANE OP) Apply to eye 4 times daily. [DISCONTINUED] raNITIdine (ZANTAC) 150 mg tablet Take 150 mg by mouth 2 times daily. simvastatin (ZOCOR) 40 mg tablet Take 40 mg by mouth nightly. No facility-administered encounter medications on file as of 12/25/2018. Family History Problem Relation Age of Onset Stomach cancer Mother Colon cancer Father Stomach cancer Sister Stomach cancer Brother Stomach cancer Sister Cancer Brother lukemia Cancer Son Breast cancer Daughter Cancer Daughter Melanoma Social History Socioeconomic History Marital status: Single Spouse name: Not on file Number of children: Not on file Years of education: Not on file Highest education level: Not on file Tobacco Use Smoking status: Former Smoker Packs/day: 1.00 Years: 30.00 Pack years: 30.00 Last attempt to quit: 1985 Years since quittin.6 Smokeless tobacco: Never Used Substance and Sexual Activity Alcohol use: No Comment: Quit 4 years ago, Drug use: Never REVIEW OF SYSTEMS: Unmarked boxes mean negative response. General: []Weight loss/gain (over 10 lbs) []Fever/chills []Night sweats Hematologic: []Bleeding/brusing tendencies []Blood transfusion []Anemia Heent: [x]Vision loss []Hearing loss []Sinus problems/nose bleeds []Hoarseness Respiratory: []Wheezing [x]Shortness of breath []Cough []Spitting up blood []On oxygen []Use CPAP machine Cardiac: []Chest pain []Palpitations/heart racing []Swelling of ankles/hands []Unusual shortness of breath []Difficulty sleeping flat Gastrointestinal: []Nausea/vomiting [x]Difficulty swallowing [x]Heartburn []Loss of appetite []Abdominal pain [x]Stom ach Ulcers []Diarrhea []Constipation []B lack or bloody stools Vascular: []Strokes/TIAs []Fainting []Difficulty with speech [x]Leg cramps []Pain in feet/legs at rest []Foot ulcers/s ores []Varicose veins []Phlebitis/blood clots Musculoskeletal: [x]Joint stiffness/swelling []Joint pain []Back pain [x]Arthritis []Gout Urologic: []Blood in urine []Frequent urination at night []Burning/painful urination []Kidney stones []Difficult urination [x]Sexual difficulties Neuro/Psychiatric: []Headaches []Seizures []Depression []Anxiety attacks []Memory loss or confusion PHYSICAL EXAM BP 108/52 | Pulse 82 | Temp 36.6 C (97.9 F) (Temporal) | Ht 1.78 m (5' 10.08") | Wt 73.1 kg (161 lb 2.5 oz) | SpO2 96% | BMI 23.07 kg/m Gen Catracho - alert, cooperative and no distress Head - normocephalic, without obvious abnormality, atraumatic Eyes - PERRL, conjunctiva/corneas clear, EOM's intact both eyes, sclera non-icteric ENT - mucous membranes moist Neck - trachea midline Lungs - no respiratory distress, no wheezing. On the left chest there is a well-healed port site incision and palpable port the catheter palpated going just under the left clavicl e Heart - regular rate and rhythm Abdomen - soft and nondistended Extremities - no tenderness, no deformities Integument - well hydrated, no obvious lesions on exposed skin, non-icteric Neurologic - alert and oriented, CN II-XII grossly intact. Psychiatric - speech and behavior appropriate, normal affect Assessment /Plan Sukh was seen today for new patient. 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 Risks and possible complications includin g infection, bleeding, wide/disfigured scar, pain, numbness, recurrence, rare risks of local anesthesia--allergy and other unforeseen complications were explained. No guarantees given or implied. Ciara Hardin MD CC PCP: Lonnie Ortega MD Portions of this chart may have been created with [employer] voice recognition software. Occasi onal wrong-word or sound-alike substitutions may have occurred due to the inherent reaves itations of voice recognition software. Please read the chart carefully and recognize, using context, where these substitutions have occurred. 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
--- OUTSIDE RECORDS SUMMARY | ~2019-04-14 | XMS | Encounter Summary ---
Demographics + + + | Address | [address] | | | [place] [address] | + + + | Home Phone | | + + + | Preferred Language | Unknown | + + + | Marital Status | Single | + + + | Restorationism Affiliation | Unknown | + + + | Race | Unknown | + + + | Ethnic Group | Unknown | + + + Author + + + | Author | [facility] | | | and [place] | + + + | Organization | [facility] | | | and [...] Team Providers + +------+ + | Care Roller Operator Name | Role | Phone | + +------+ + PCP | Unavailable | + +------+ + Encounter Details +--------+ + + + + | Date | Type | Department | Care Team | Description | +--------+ + + + + | 10/15/ | Hospital | [facility] | | | | 2008 - | Encounter | MED CTR CANCER | | | | | | CENTER [address] | | | | 10/26/ | | [place] | | | | 2008 | | [address] | | | | | | [phone] | | | +--------+ + + + [...]
--- OUTSIDE RECORDS SUMMARY | ~2019-04-14 | XMS | Encounter Summary ---
Demographics + + + | Address | [address] | | | [place] [address] | + + + | Home Phone | | + + + | Preferred Language | Unknown | + + + | Marital Status | Single | + + + | Methodist Affiliation | Unknown | + + + | Race | Unknown | + + + | Ethnic Group | Unknown | + + + Author + + + | Author | [facility] | | | and [place] | + + + | Organization | [facility] | | | and [place] [...] Team Providers + +------+ + | Care Field Mechanic Name | Role | Phone | + +------+ + PCP | Unavailable | + +------+ + Encounter Details +--------+ + + + + | Date | Type | Department | Care Team | Description | +--------+ + + + + | 04/13/ | Hospital | [facility] | | | | 2007 - | Encounter | MED CTR CANCER | | | | | | CENTER [address] | | | | 04/28/ | | [place] | | | | 2007 | | [address] | | | | | | [phone] | | | +--------+ + + + [...]
--- OUTSIDE RECORDS SUMMARY | ~2019-04-14 | XMS | Encounter Summary ---
Demographics + + + | Address | [address] | | | [place] [address] | + + + | Home Phone | | + + + | Preferred Language | Unknown | + + + | Marital Status | Single | + + + | Congregational Affiliation | Unknown | + + + | Race | Unknown | + + + | Ethnic Group | Unknown | + + + Author + + + | Author | [facility] | | | and [place] | + + + | Organization | [facility] | | | and [place] | + [...] Team Providers + +------+ + | Care Opinion Polls Survey Worker Name | Role | Phone | + +------+ + | Andrey Davenport MD | PCP | | + +------+ + Encounter Details +--------+ + + + + | Date | Type | Department | Care Team | Description | +--------+ + + + + | 08/02/ | Hospital | [facility] | Marilyn Monroy | | | 2019 | Encounter | MED CTR RADIATION | MD Anupama [address] | | | | | ONCOLOGY [address] | [place] | | | | | [place], | [address] | | | | | [place] [address] | | | | | | [phone] | | | +--------+ + + + [...] + + documented as of this encounter Medications at Time of Discharge [...] +---------+--------+ + documented as of this encounter Plan of Treatment Not on filedocumented as of this encounter Visit Diagnoses Not on filedocumented in this encounter"
--- OUTSIDE RECORDS SUMMARY | ~2019-04-14 | XMS | Encounter Summary ---
Demographics + + + | Address | [address] | | | [place] [address] | + + + | Home Phone | | + + + | Preferred Language | Unknown | + + + | Marital Status | Single | + + + | Scientology Affiliation | Unknown | + + + | Race | Unknown | + + + | Ethnic Group | Unknown | + + + Author + + + | Author | [facility] | | | and [place] | + + + | Organization | [facility] | | | and [...] Team Providers + +------+ + | Care Operation Supervisor Name | Role | Phone | + +------+ + PCP | Unavailable | + +------+ + Encounter Details +--------+ + + + + | Date | Type | Department | Care Team | Description | +--------+ + + + + | 09/08/ | Hospital | [facility] | | | | 2007 - | Encounter | MED CTR CANCER | | | | | | CENTER [address] | | | | 09/26/ | | [place] | | | | 2007 | | [address] | | | | | | [phone] | | | +--------+ + + + [...]
--- OUTSIDE RECORDS SUMMARY | ~2019-04-14 | XMS | Encounter Summary ---
Demographics + + + | Address | [address] | | | [place] [address] | + + + | Home Phone | | + + + | Preferred Language | Unknown | + + + | Marital Status | Single | + + + | Gnosticism Affiliation | Unknown | + + + | Race | Unknown | + + + | Ethnic Group | Unknown | + + + Author + + + | Author | [facility] | | | and [place] | + + + | Organization | [facility] | | | and [place] | + + + | Address | Unknown | + + + | Phone | Unavailable | + + + Support + + +---------+ + | Name | Relationship | Address | Phone | + + +---------+ + | Vicki Esipnoza | ECON | Unknown | | + + +---------+ + Care Team Providers + +------+ + | Care Magnetometer Operator Name | Role | Phone | [...] | +--------+ + + + + | 07/24/ | Hospital | [facility] | Marilyn Monroy | Diffuse large B-cell | | 2019 | Encounter | MED CTR RADIATION | MD Anupama [address] | lymphoma of | | | | ONCOLOGY CLINIC [address] | [place], [place] | extranodal site | | | | [address] [place] | [address] | excluding spleen and | | | | [place] [address] | | other solid organs | | | | [phone] | | (HCC) (Primary Dx) | +--------+ [...] + + + | Blood Pressure | 148/65 | 07/24/2018 10:27 AM | | | | | PDT | | + + + + + | Pulse | 70 | 07/24/2018 10:27 AM | | | | | PDT | | + + + + + | Temperature | 36.7 C (98 F) | 07/24/2018 10:27 AM | | | | | PDT | | + + + + + | Respiratory Rate | 16 | 07/24/2018 10:27 AM | | | | | PDT | | + + + + + | Oxygen Saturation | 98% | 07/24/2018 10:27 AM | | | | | PDT | | + + + + + | Inhaled Oxygen | - | - | | | Concentration | | | | + + + + + | Weight | 75.1 kg (165 lb 9.1 | 07/24/2018 10:27 AM | | | | oz) | PDT | | + + + + + | Height | - | - | | + + + + + | Body Mass Index | 23.7 | 07/04/2018 8:26 AM | | | [...] encounter Progress Notes Marilyn Monroy MD - 07/24/2018 10:35 AM PDT Radiation Oncology Weekly On Treatment Note Diagnosis: ICD-10-CM ICD-9-CM 1. 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 Corre ctions were applied as necessary. Allergies Allergen Reactions Levofloxacin Hives Fluvastatin Other (See Comments) Pravastatin Other (See Comments) Current Outpatient Prescriptions on File Prior to Encounter Medication Sig [...] file prior to encounter. Pain assessment: Location: Throat Pain Level: PAIN PROG PAIN LEVEL: 1 Pain Quality: Stable "irritation" Current pain regimen: NA Wt Readings from Last 3 Encounters: 07/24/18 75.1 kg (165 lb 9.1 oz) 07/17/18 73.9 kg (162 lb 14.7 oz) 07/04/18 73.8 kg (162 lb 11.2 oz) Vitals: 07/24/18 1027 BP: 148/65 Pulse: 70 Resp: 16 Temp: 36.7 C (98 F) TempSrc: Temporal SpO2: 98% Weight: 75.1 kg (165 lb 9.1 oz) Physical Exam Constitutional: He appears well-developed and well-nourished. Neurological: He is alert. Skin: No rash noted. No erythema. Psychiatric: He has a normal mood and affect. Physician Assessment: 07/24/18: Sotero is in his second week of radiation. He is doing very well with treatment. [facility] fatigue report. No skin irritation. Toxicities reviewed in nursing note. Disposition: Continue radiation treatment as planned. Skin care with emollient lotion. 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
--- OUTSIDE RECORDS SUMMARY | ~2019-04-14 | XMS | Encounter Summary ---
Demographics + + + | Address | [address] | | | [place] [address] | + + + | Home Phone | | + + + | Preferred Language | Unknown | + + + | Marital Status | Single | + + + | Religion Affiliation | Unknown | + + + | Race | Unknown | + + + | Ethnic Group | Unknown | + + + Author + + + | Author | [facility] | | | and [place] | + + + | Organization | [facility] | | | and [place] | [...] Team Providers + +------+ + | Care Alliance Consultant Name | Role | Phone | + +------+ + | Andrey Davenport MD | PCP | | + +------+ + Encounter Details +--------+ + + + + | Date | Type | Department | Care Team | Description | +--------+ + + + + | 07/17/ | Imaging | [facility] | Provider, | | | 2019 | Exam | MED CTR EXTERNAL | MD [address] | | | | | IMAGING | [address] | | | | | [phone] | [place] [address] | | +--------+ + + + + [...] | + +--------+ + + + | PET CT SKULL BASE TO | Routin | 07/16/2018 | | Results for this | | MID THIGH | e | 12:10 PM | | procedure are in the | | | | PDT | | results section. | + +--------+ + + + documented in this encounter Results PET CT Skull Base To Mid Thigh (07/16/2018 12:10 PM PDT) + + | Specimen | + [...]
--- OUTSIDE RECORDS SUMMARY | ~2019-04-14 | XMS | Encounter Summary ---
Demographics + + + | Address | [address] | | | [place] [address] | + + + | Home Phone [...] + + | Organization | [facility] | | | and [...] Providers + +------+ + | Care Medical Diagnostic Radiographer Name | Role | Phone | + [...] [address] | | | | | [phone] | [place] [address] | | +--------+ + + + + [...] | + +--------+ + + + | MRI CHEST W WO | Routin | 02/12/2018 | | Results for this | | CONTRAST | e | 8:10 AM | | procedure are in the | | | | PDT | | results section. | + +--------+ + + + documented in this encounter Results MRI Chest w wo Contrast (02/12/2018 8:10 AM PDT) + + | Specimen | [...]
--- OUTSIDE RECORDS SUMMARY | ~2019-04-14 | XMS | Encounter Summary ---
Demographics + + + | Address | [address] | | | [place] [address] | + + + | Home Phone | | + + + | Preferred Language | Unknown | + + + | Marital Status | Single | + + + | Gnosticist Affiliation | Unknown | + + + | Race | Unknown | + + + | Ethnic Group | Unknown | + + + Author + + + | Author | [facility] | | | and [place] | + + + | Organization | [facility] | | | and [place] [...] Team Providers + +------+ + | Care Service Desk Lead Name | Role | Phone | + +------+ + | Andrey Davenport MD | PCP | | + +------+ + Reason for Referral Diagnostic/Screening (Routine) +--------+--------+ + + + + | Status | Reason | Specialty | Diagnoses / | Referred By | Referred To | | | | | Procedures | Contact | Contact | +--------+--------+ + + + + | Closed | | Radiology | Diagnoses | [place], | [address] | | | | | 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, | [address]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 [address] | [place], | | | | | lymphoma of | [address] | [place] [address] | | | | | extranodal | [place], | Phone: | | | | | site | [place] [address] | [phone] | | | | | excluding | Phone: | Fax: | | | | | spleen and | [phone] | [phone] | | | | | other solid | Fax: | | | | | | organs (HCC) | [phone] | | | | | | Procedures | | | | | | | CT | | | | | | | Treatment | | | | | | | Plan Complex | | | | | | | CT TX PLAN | | | +--------+--------+ + + + + Encounter Details +--------+ + + + + | Date | Type | Department | Care Team | Description | +--------+ + + + + | 07/09/ | Hospital | [facility] | Marilyn Monroy | Diffuse large B-cell | | 2019 | Encounter | MED CTR [address] | MMD [address] | lymphoma of | | | | [place], | [place], [place] | extranodal site | | | | [place] [address] | [address] | excluding spleen and | | | | [phone] | | other solid organs | | | | | | (HCC) | +--------+ + + + + Social [...] + +--------+ + + + | CT TREATMENT PLAN | Routin | 07/09/2018 | Diffuse large | Results for this | | COMPLEX | e | 10:28 AM | B-cell lymphoma of | procedure are in the | | | | PDT | extranodal site | results section. | | | | | excluding spleen and | | | | | | other solid organs | | | | | | (HCC) | | + +--------+ + + + documented in this encounter Results CT Treatment Plan Complex (07/09/2018 10:28 AM PDT) + + | Specimen | + + | | + + + + + | Narrative | Performed At | + + + | This exam has been auto-finalized and the interpretation may exist | [facility] | | elsewhere in the chart. 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
--- OUTSIDE RECORDS SUMMARY | ~2019-04-14 | XMS | Encounter Summary ---
Demographics + + + | Address | [address] | | | [place] [address] | + + + | Home Phone | | + + + | Preferred Language | Unknown | + + + | Marital Status | Single | + + + | Synagogue Affiliation | Unknown | + + + | Race | Unknown | + + + | Ethnic Group | Unknown | + + + Author + + + | Author | [facility] | | | and [place] | + + + | Organization | [facility] | | | and [place] [...] Providers + +------+ + | Care Senior Corporate Strategy Manager Name | Role | Phone | + +------+ + | Andrey Davenport MD | PCP | | + +------+ + Encounter Details +--------+ + + + + | Date | Type | Department | Care Team | Description | +--------+ + + + + | 07/31/ | Hospital | [facility] | Austin Tinajero DO | Diffuse large B-cell | | 2019 | Encounter | MED CTR RADIATION | [address] | lymphoma of | | | | [facility]OGY CL[facility] [address] | [place] | extranodal site | | | | [place] | [address] | excluding spleen and | | | | [place] [address] | | other solid organs | | | | [phone] | | (HCC) (Primary Dx) | +--------+ [...] + + + | Blood Pressure | 138/63 | 07/31/2018 10:05 AM | | | | | PDT | | + + + + + | Pulse | 64 | 07/31/2018 10:05 AM | | | | | PDT | | + + + + + | Temperature | 36.9 C (98.4 F) | 07/31/2018 10:05 AM | | | | | PDT | | + + + + + | Respiratory Rate | 14 | 07/31/2018 10:05 AM | | | | | PDT | | + + + + + | Oxygen Saturation | 97% | 07/31/2018 10:05 AM | | | | | PDT | | + + + + + | Inhaled Oxygen | - | - | | | Concentration | | | | + + + + + | Weight | 75.7 kg (166 lb 14.2 | 07/31/2018 10:05 AM | | | | oz) | PDT | | + + + + + | Height | - | - | | + + + + + | Body Mass Index | 23.89 | 07/04/2018 8:26 AM | | | [...] documented as of this encounter Progress Notes Austin Tinajero DO - 07/31/2018 10:08 AM PDT Radiation Oncology Weekly On Treatment Note Diagnosis: ICD-10-CM ICD-9-CM 1. 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 Vital signs are normal. He appea rs well-developed and well-nourished. No distress. HENT: Head: Normocephalic and atraumatic. Eyes: Conjunctivae and EOM are normal. Neck: Trachea normal. Cardiovascular: Normal rate. Pulmonary/Chest: Effort normal and breath sounds normal. No accessory muscle usage. No resp iratory distress. Musculoskeletal: Normal range of motion. Neurological: He is oriented to person, place, and time. He has normal strength. Psychiatric: He has a normal mood and affect. His behavior is normal. Cognition and memory are normal. Nursing note and vitals reviewed. Physician Assessment: Overall, he is tolerating treatment well with no specific concerns or complaints this week other than he has noticed fatigue.Acute toxicities reviewed. He will complete treatment saturday. Toxicities reviewed in nursing note. Disposition: Continue radiation treatment as planned. Austin Tinajero DO Radiation Oncologist Inga Paredes RN - 07/31/2018 10:08 AM PDT 07/31/18 1008 General Disorders and Administration Site Conditions Fatigue 1 - Grade 1 Respiratory Thoracic and Mediastinal Cough 0 - Grade 0 Dyspnea 0 - Grade 0 Performance Status [...]
--- OUTSIDE RECORDS SUMMARY | ~2019-04-14 | XMS | Encounter Summary ---
Demographics + + + | Address | [address] | | | [place] [address] | + + + | Home Phone | | + + + | Preferred Language | Unknown | + + + | Marital Status | Single | + + + | Tenriism Affiliation | Unknown | + + + | Race | Unknown | + + + | Ethnic Group | Unknown | + + + Author + + + | Author | [facility] | | | and [place] | + + + | Organization | [facility] | | | and [place] [...] Team Providers + +------+ + | Care Protocol Officer Name | Role | Phone | + +------+ + | Andrey Davenport MD | PCP | | + +------+ + Encounter Details +--------+ + + + + | Date | Type | Department | Care Team | Description | +--------+ + + + + | 07/02/ | Abstract | [facility] | Marilyn Monroy | | | 2019 | | MED CTR RADIATION | MD [place]upama [address] | | | | | ONCOLOGY CLINIC [address] | [facility] [place] | | | | | [address] | [id number] | | | | | [place] [address] | | | | | | [phone] | | | +--------+ + + + [...]
--- OUTSIDE RECORDS SUMMARY | ~2019-04-14 | XMS | Encounter Summary ---
Demographics + + + | Address | [address] | | | [place] [address] | + + + | Home Phone | | + + + | Preferred Language | Unknown | + + + | Marital Status | Single | + + + | Cheondoism Affiliation | Unknown | + + + | Race | Unknown | + + + | Ethnic Group | Unknown | + + + Author + + + | Author | [facility] | | | and [place] | + + + | Organization | [facility] | | | [...] Team Providers + +------+ + | Care Learning Engineer Name | Role | Phone | + +------+ + PCP | Unavailable | + +------+ + Encounter Details +--------+ + + + + | Date | Type | Department | Care Team | Description | +--------+ + + + + | 08/19/ | Hospital | [facility] | Jordan Escalera MD | | | 1995 | Encounter | MED CTR MP INTRA OP | [address] | | | | | [address] | [address] [place] | | | | | [place] | [address] | | | | | [address] | | | | | | [phone] | | | +--------+ + + + [...]
--- OUTSIDE RECORDS SUMMARY | ~2019-04-14 | XMS | Encounter Summary ---
Demographics + + + | Address | [address] | | | [place] [address] | + + + | Home Phone | | + + + | Preferred Language | Unknown | + + + | Marital Status | Single | + + + | Mu-Ism Affiliation | Unknown | + + + | Race | Unknown | + + + | Ethnic Group | Unknown | + + + Author + + + | Author | [facility] | | | and [place] | + + + | Organization | [facility] | | | and [...] Team Providers + +------+ + | Care Associate Professor Of Library Science Name | Role | Phone | + +------+ + PCP | Unavailable | + +------+ + Encounter Details +--------+ + + + + | Date | Type | Department | Care Team | Description | +--------+ + + + + | 01/17/ | Hospital | [facility] | Jordan Escalera MD | | | 1992 | Encounter | MED CTR XRAY [address] | [address] | | | | | [place] | [address] [place] [address] | | | | | [place] [address] | [id number] | | | | | [phone] | | | +--------+ + + + [...]
--- OUTSIDE RECORDS SUMMARY | ~2019-04-14 | XMS | Encounter Summary ---
Demographics + + + | Address | [address] | | | [place] [address] | + + + | Home Phone | | + + + | Preferred Language | Unknown | + + + | Marital Status | Single | + + + | Latter Day Affiliation | Unknown | + + + | Race | Unknown | + + + | Ethnic Group | Unknown | + + + Author + + + | Author | [facility] | | | and [place] | + + + | Organization | [facility] | | | and [...] Team Providers + +------+ + | Care Land Resource Specialist Name | Role | Phone | + [...] + + + + | 07/17/ | Hospital | [facility] | Marilyn Monroy | Diffuse large B-cell | | 2019 | Encounter | MED CTR RADIATION | MD [place]up[place] [address] | lymphoma of | | | | ONCOLOGY CLINIC [address] | [place], [place] | extranodal site | | | | [address] [place] | [address] | excluding spleen and | | | | [place] [address] | | other solid organs | | | | [phone] | | (HCC) (Primary Dx) | +--------+ [...] + + + | Blood Pressure | 119/63 | 07/17/2018 11:37 AM | | | | | PDT | | + + + + + | Pulse | 65 | 07/17/2018 11:37 AM | | | | | PDT | | + + + + + | Temperature | 36.8 C (98.2 F) | 07/17/2018 11:37 AM | | | | | PDT | | + + + + + | Respiratory Rate | 16 | 07/17/2018 11:37 AM | | | | | PDT | | + + + + + | Oxygen Saturation | 99% | 07/17/2018 11:37 AM | | | | | PDT | | + + + + + | Inhaled Oxygen | - | - | | | Concentration | | | | + + + + + | Weight | 73.9 kg (162 lb 14.7 | 07/17/2018 11:37 AM | | | | oz) | PDT | | + + + + + | Height | - | - | | + + + + + | Body Mass Index | 23.32 | 07/04/2018 8:26 AM | | | [...] documented as of this encounter Progress Notes Inga Murillo RN - 07/17/2018 11:41 AM PDT 07/17/18 1140 General Disorders and Administration Site Conditions Fatigue 0 - Grade 0 Respiratory Thoracic and Mediastinal Cough 0 - Grade 0 Dyspnea 1 - Grade 1 (asthma related.) Performance Status Karnofsky Performance Score 90% Inga Paredes RN - 07/17/2018 11:33 AM PDTMet with patient today for nurse education. Verbal and written education given to patient regarding general radiation therapy side effects as well as site specific side effects. Reviewed process of OT day for their doctor, all questions at this time were answered. Marilyn Momin MD - 07/17/2018 9:58 AM PDT Radiation Oncology Weekly On Treatment Note Diagnosis: ICD-10-CM ICD-9-CM 1. 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 Wt Readings from Last 3 Encounters: 08/06/18 75.4 kg (166 lb 3.6 oz) 07/31/18 75.7 kg (166 lb 14.2 oz) 07/24/18 75.1 kg (165 lb 9.1 oz) Vitals: 07/17/18 1137 BP: 119/63 Pulse: 65 Resp: 16 Temp: 36.8 C (98.2 F) TempSrc: Tympanic SpO2: 99% Weight: 73.9 kg (162 lb 14.7 oz) Physical Exam Constitutional: He appears well-developed and well-nourished. Neurological: He is alert. Skin: No rash noted. No erythema. Psychiatric: He has a normal mood and affect. Physician Assessment: 07/17/18: Sotero started radiation treatment today. We reviewed possible side effects of maikol tment. Discussed skin care recommendations. No acute side effects at this point. Toxicities reviewed in nursing note. Disposition: Continue radiation treatment as planned. 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
--- OUTSIDE RECORDS SUMMARY | ~2019-04-14 | XMS | Encounter Summary ---
Demographics + + + | Address | [address] | | | [place] [address] | + + + | Home Phone | | + + + | Preferred Language | Unknown | + + + | Marital Status | Single | + + + | Orthodox Affiliation | Unknown | + + + | Race | Unknown | + + + | Ethnic Group | Unknown | + + + Author + + + | Author | [facility] | | | and [place] | + + + | Organization | [facility] | | | and [place] [...] Team Providers + +------+ + | Care Language Asst Name | Role | Phone | + +------+ + PCP | Unavailable | + +------+ + Encounter Details +--------+ + + + + | Date | Type | Department | Care Team | Description | +--------+ + + + + | 08/14/ | Hospital | [facility] | | | | 2002 - | Encounter | MED CTR CANCER | | | | | | CENTER [address] | | | | 11/12/ | | [place] | | | | 2002 | | [address] | | | | | | [phone] | | | +--------+ + + + [...]
--- OUTSIDE RECORDS SUMMARY | ~2019-04-14 | XMS | Encounter Summary ---
Demographics + + + | Address | [address] | | | [place] [address] | + + + | Home Phone | | + + + | Preferred Language | Unknown | + + + | Marital Status | Single | + + + | Yarsani Affiliation | Unknown | + + + | Race | Unknown | + + + | Ethnic Group | Unknown | + + + Author + + + | Author | [facility] | | | and [place] | + + + | Organization | [facility] | | | and [...] Team Providers + +------+ + | Care Plug Overwrap Machine Tender Name | Role | Phone | + +------+ + PCP | Unavailable | + +------+ + Encounter Details +--------+ + + + + | Date | Type | Department | Care Team | Description | +--------+ + + + + | 11/20/ | Hospital | [facility] | | | | 2000 - | Encounter | MED CTR CANCER | | | | | | CENTER [address] | | | | 04/07/ | | [place] | | | | 2000 | | [address] | | | | | | [phone] | | | +--------+ + + + [...]
--- OUTSIDE RECORDS SUMMARY | ~2019-04-14 | XMS | Encounter Summary ---
Demographics + + + | Address | [address] | | | [place] [address] | + + + | Home Phone | | + + + | Preferred Language | Unknown | + + + | Marital Status | Single | + + + | Spiritism Affiliation | Unknown | + + + | Race | Unknown | + + + | Ethnic Group | Unknown | + + + Author + + + | Author | [facility] | | | and [place] | + + + | Organization | [facility] | | | and [place] [...] Team Providers + +------+ + | Care Golf Course Assistant Name | Role | Phone | + +------+ + PCP | Unavailable | + +------+ + Encounter Details +--------+ + + + + | Date | Type | Department | Care Team | Description | +--------+ + + + + | 01/17/ | Hospital | [facility] | Jordan Escalera MD | | | 1992 | Encounter | MED CTR XRAY [address] | [address] | | | | | [address] | [address] | | | | | [place] [address] | [id number] | | | | | [phone] | | | +--------+ + + + [...]
--- OUTSIDE RECORDS SUMMARY | ~2019-04-14 | XMS | Encounter Summary ---
Demographics + + + | Address | [address] | | | [place] [address] | + + + | Home Phone | | + + + | Preferred Language | Unknown | + + + | Marital Status | Single | + + + | Catholic Affiliation | Unknown | + + + | Race | Unknown | + + + | Ethnic Group | Unknown | + + + Author + + + | Author | [facility] | | | and [place] | + + + | Organization | [facility] | | | and [place] [...] Team Providers + +------+ + | Care Bioinformatics Research Technician Name | Role | Phone | + +------+ + PCP | Unavailable | + +------+ + Encounter Details +--------+ + + + + | Date | Type | Department | Care Team | Description | +--------+ + + + + | 09/08/ | Hospital | [facility] | | | | 2007 - | Encounter | MED CTR CANCER | | | | | | CENTER [address] | | | | 09/26/ | | [place] | | | | 2007 | | [address] | | | | | | [phone] | | | +--------+ + + + [...]
--- OUTSIDE RECORDS SUMMARY | ~2019-04-14 | XMS | Encounter Summary ---
Demographics + + + | Address | [address] | | | [place] [address] | + + + | Home Phone | | + + + | Preferred Language | Unknown | + + + | Marital Status | Single | + + + | Jainism Affiliation | Unknown | + + + | Race | Unknown | + + + | Ethnic Group | Unknown | + + + Author + + + | Author | [facility] | | | and [place] | + + + | Organization | [facility] | | [...] Team Providers + +------+ + | Care Viscose Department Worker Name | Role | Phone | [...] [address] | | | | | [phone] | [place] [address] | | +--------+ + + + + [...] + +--------+ + + + | CT ABDOMEN PELVIS W | Routin | 04/07/2012 | | Results for this | | CONTRAST | e | 9:30 AM | | procedure are in the | | | | PST | | results section. | + +--------+ + + + documented in this encounter Results CT Abdomen Pelvis w Contrast (04/07/2012 9:30 AM PST) + + | Specimen | + + [...]
--- OUTSIDE RECORDS SUMMARY | ~2019-04-14 | XMS | Encounter Summary ---
Demographics + + + | Address | [address] | | | [place] [address] | + + + | Home Phone | | + + + | Preferred Language | Unknown | + + + | Marital Status | Single | + + + | Rastafarian Affiliation | Unknown | + + + | Race | Unknown | + + + | Ethnic Group | Unknown | + + + Author + + + | Author | [facility] | | | and [place] | + + + | Organization | [facility] | | [...] Providers + +------+ + | Care Senior Asic Engineer Name | Role | Phone | + +------+ + PCP | Unavailable | + +------+ + Encounter Details +--------+ + + + + | Date | Type | Department | Care Team | Description | +--------+ + + + + | 04/15/ | Hospital | [facility] | Jordan Escalera MD | | | 2008 | Encounter | MED CTR GENERIC OP | [address] | | | | | CONV DEPT [address] | [address] [place] | | | | | [place], | [id number] | | | | | [place] [address] | | | | | | [phone] | | | +--------+ + + + [...]
--- OUTSIDE RECORDS SUMMARY | ~2019-04-14 | XMS | Encounter Summary ---
Demographics + + + | Address | [address] | | | [place] [address] | + + + | Home Phone | | + + + | Preferred Language | Unknown | + + + | Marital Status | Single | + + + | Temple Affiliation | Unknown | + + + | Race | Unknown | + + + | Ethnic Group | Unknown | + + + Author + + + | Author | [facility] | | | and [place] | + + + | Organization | [facility] | | | and [place] | [...] Team Providers + +------+ + | Care Gray Mixing Operator Name | Role | Phone | + +------+ + PCP | Unavailable | + +------+ + Encounter Details +--------+ + + + + | Date | Type | Department | Care Team | Description | +--------+ + + + + | 08/11/ | Hospital | [facility] | | | | 2003 - | Encounter | MED CTR CANCER | | | | | | CENTER [address] | | | | 11/17/ | | [place] | | | | 2003 | | [address] | | | | | | [phone] | | | +--------+ + + + [...]
--- OUTSIDE RECORDS SUMMARY | ~2019-04-14 | XMS | Encounter Summary ---
Demographics + + + | Address | [address] | | | [place] [address] | + + + | Home Phone | | + + + | Preferred Language | Unknown | + + + | Marital Status | Single | + + + | Temple Affiliation | Unknown | + + + | Race | Unknown | + + + | Ethnic Group | Unknown | + + + Author + + + | Author | [facility] | | | and [place] | + + + | Organization | [facility] | | | and [...] Team Providers + +------+ + | Care Staff Development Manager Name | Role | Phone | [...] Closed | | Radiology | Diagnoses | Porfirio | [address] | | | | | Diffuse | Marilyn Altman | GABY | | | | | large B-cell | [address] | [facility] | | | | | lymphoma of | [address] | [address] | | | | | extranodal | [place], | AVE | | | | | site | [place] [address] | [place], [place] | | | | | excluding | Phone: | [address] | | | | | spleen and | [phone] | Phone: | | | | | other solid | Fax: | [phone] | | | | | organs (HCC) | [phone] | Fax: | | | | | Procedures | | [phone] | | | | | PET CT | | | | | | | Skull Base | | | | | | | To Mid Thigh | | | +--------+--------+ + + + + Diagnostic/Screening (Routine) +--------+--------+ + + + + | Status | Reason | Specialty | Diagnoses / | Referred By | Referred To | | | | | Procedures | Contact | Contact | +--------+--------+ + + + + | Closed | | Radiology | Diagnoses | Riegert, | [address] | | | | | 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, | [address]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 [address] | [facility], | | | | | lymphoma of | [address] | [place] [address] | | | | | extranodal | [place], | Phone: | | | | | site | [place] [address] | [phone] | | | | | excluding | Phone: | Fax: | | | | | spleen and | [phone] | [phone] | | | | | other solid | Fax: | | | | | | organs (HCC) | [phone] | | | | | | Procedures | | | | | | | CT | | | | | | | Treatment | | | | | | | Plan Complex | | | | | | | CT TX PLAN | | | +--------+--------+ + + + + Reason for Visit +---------+ + | Reason | Comments | +---------+ + | Consult | | +---------+ + Evaluate & Treat (Routine) +--------+ + + + + + | Status | Reason | Specialty | Diagnoses / | Referred By | Referred To | | | | | Procedures | Contact | Contact | +--------+ + + + + + | Closed | Specialty | Radiation | Diagnoses | | Porfirio, | | | Services | Oncology | B cell | Gee, | Marilyn Altman MD | | | Required | | lymphoma | Michael Donato, | [address] | | | | | Procedures | [address] | [address] | | | | | [place] OFFICE | GABY FAULKNER, | [place], | | | | | OUTPATIENT | [address] | [place] [address] | | | | | VIS[address] | [place], | Phone: | | | | | MINUTES | [place] [address] | [phone] | | | | | | | Fax: | | | | | | | [phone] | +--------+ + + + + + Encounter Details +--------+ + + + + | Date | Type | Department | Care Team | Description | +--------+ + + + + | 07/04/ | Hospital | [facility] | Marilyn Monroy | Diffuse large B-cell | | 2019 | Encounter | MED CTR RADIATION | MD Anupama [address] | lymphoma of | | | | [facility] [address] | [place], [place] | extranodal site | | | | [facility] | [address] | excluding spleen and | | | | [place] [address] | | other solid organs | | | | [phone] | | (HCC) (Primary Dx) | +--------+ [...] + + + | Blood Pressure | 139/61 | 07/04/2018 8:26 AM | | | | | PST | | + + + + + | Pulse | 73 | 07/04/2018 8:26 AM | | | | | PST | | + + + + + | Temperature | 36.1 C (97 F) | 07/04/2018 8:26 AM | | | | | PST | | + + + + + | Respiratory Rate | 16 | 07/04/2018 8:26 AM | | | | | PST | | + + + + + | Oxygen Saturation | 96% | 07/04/2018 8:26 AM | | | | | PST | | + + + + + | Inhaled Oxygen | - | - | | | Concentration | | | | + + + + + | Weight | 73.8 kg (162 lb 11.2 | 07/04/2018 8:26 AM | | | | oz) | PST | | + + + + + | Height | 178 cm (5' 10.08") | 07/04/2018 8:26 AM | | | | | PST | | + + + + + | Body Mass Index | 23.29 | 07/04/2018 8:26 AM | | | [...] as of this encounter Plan of Treatment + +---------+--------+ + + | Name | Type | Priori | Associated Diagnoses | Order Schedule | | | | ty | | | + +---------+--------+ + + | PET CT Skull Base To | Imaging | Routin | Diffuse large | Expected: | | Mid Thigh | | e | B-cell lymphoma of | 07/04/2018, Expires: | | | | | extranodal site | 07/05/2019 | | | | | excluding spleen and | | | | | | other solid organs | | | | | | (HCC) | | + +---------+--------+ + + documented as of this encounter Procedures + +--------+ + + + | Procedure Name | Priori | Date/Time | Associated Diagnosis | Comments | | | ty | | | | + +--------+ + + + | IMAGING REPORT - | | 07/16/2018 | | Results for this | | EXTERNAL SCAN | | 12:00 AM | | procedure are in the | | | | PDT | | results section. | + +--------+ + + + | ECHO-EXTERNAL SCAN | | 03/27/2018 | | Results for this | | | | 12:00 AM | | procedure are in the | | | | PST | | results section. | + +--------+ + + + | PATHOLOGY - EXTERNAL | | 03/04/2018 | | Results for this | | SCAN | | 12:00 AM | | procedure are in the | | | | PST | | results section. | + +--------+ + + + | PATHOLOGY - EXTERNAL | | 02/24/2018 | | Results for this | | SCAN | | 12:00 AM | | procedure are in the | | | | PDT | | results section. | + +--------+ + + + | IMAGING REPORT - | | 02/13/2018 | | Results for this | | EXTERNAL SCAN | | 12:00 AM | | procedure are in the | | | | PDT | | results section. | + +--------+ + + + documented in this encounter Results IMAGING REPORT - EXTERNAL SCAN (07/16/2018 12:00 AM PDT) + + + | Narrative | Performed At | + + + | Ordered by an | | | unspecified provider. | | + + + CT Treatment Plan Complex (07/09/2018 10:28 AM [...] | | | + +---------+ + + ECHO-EXTERNAL SCAN (03/27/2018 12:00 AM PST) + + + | Narrative | Performed At | + + + | Ordered by an | | | unspecified provider. | | + + + PATHOLOGY - EXTERNAL SCAN (03/04/2018 12:00 AM PST) + + + | Narrative | Performed At | + + + | Ordered by an | | | unspecified provider. | | + + + PATHOLOGY - EXTERNAL SCAN (02/24/2018 12:00 AM PDT) + + + | Narrative | Performed At | + + + | Ordered by an | | | unspecified provider. | | + + + IMAGING REPORT - EXTERNAL SCAN (02/13/2018 12:00 AM PDT) + + + | Narrative | Performed At | + + + | Ordered by an | | | unspecified provider. 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
--- OUTSIDE RECORDS SUMMARY | ~2019-04-14 | XMS | Encounter Summary ---
Demographics + + + | Address | [address] | | | [place] [address] | + + + | Home Phone [...] | Organization | [facility] | | | and [place] [...] Team Providers + +------+ + | Care Supervisor Safety Deposit Name | Role | Phone | + +------+ + PCP | Unavailable | + +------+ + Encounter Details +--------+ + + + + | Date | Type | Department | Care Team | Description | +--------+ + + + + | 02/24/ | Hospital | [facility] | Jordan Escalera MD | | | 2002 | Encounter | MED CTR GENERIC OP | [address] | | | | | CONV DEPT [address] | [address] [place] [address] | | | | | [place], | [id number] | | | | | [place] [address] | | | | | | [phone] | | | +--------+ + + + [...]
--- OUTSIDE RECORDS SUMMARY | ~2019-04-14 | XMS | Encounter Summary ---
Demographics + + + | Address | [address] | | | [place] [address] | + + + | Home Phone | | + + + | Preferred Language | Unknown | + + + | Marital Status | Single | + + + | Temple Affiliation | Unknown | + + + | Race | Unknown | + + + | Ethnic Group | Unknown | + + + Author + + + | Author | [facility] | | | and [place] | + + + | Organization | [facility] | | | and [place] [...] Team Providers + +------+ + | Care Plastic Manager Name | Role | Phone | + +------+ + | Andrey Davenport MD | PCP | | + +------+ + Reason for Visit + + + | Reason | Comments | + + + | Physician Call | | + + + Encounter Details +--------+ + + + + | Date | Type | Department | Care Team | Description | +--------+ + + + + | 05// | Telephone | [facility] | Gee, | Physician Call | | 2019 | | MED CTR MEDICAL | Michael Donato MD [address] | | | | | [facility] CLIN[facility] [address] | [address] [place] | | | | | [address] [place] | [place] [address] | | | | | [place] [address] | [phone] | | | | | [phone] | | | +--------+ + + + [...]
--- OUTSIDE RECORDS SUMMARY | ~2019-04-14 | XMS | Encounter Summary ---
Demographics + + + | Address | [address] | | | [place] [address] | + + + | Home Phone | | + + + | Preferred Language | Unknown | + + + | Marital Status | Single | + + + | Faith Affiliation | Unknown | + + + | Race | Unknown | + + + | Ethnic Group | Unknown | + + + Author + + + | Author | [facility] | | | and [place] | + + + | Organization | [facility] | [...] Team Providers + +------+ + | Care Bi Solutions Architect Name | Role | Phone | + +------+ + PCP | Unavailable | + +------+ + Encounter Details +--------+ + + + + | Date | Type | Department | Care Team | Description | +--------+ + + + + | 11/20/ | Hospital | [facility] | | | | 2000 - | Encounter | MED CTR CANCER | | | | | | CENTER [address] | | | | 04/07/ | | [place] | | | | 2000 | | [address] | | | | | | [phone] | | | +--------+ + + + [...]
--- OUTSIDE RECORDS SUMMARY | ~2019-04-14 | XMS | Encounter Summary ---
Demographics + + + | Address | [address] | | | [place] [address] | + + + | Home Phone | | + + + | Preferred Language | Unknown | + + + | Marital Status | Single | + + + | Restoration Affiliation | Unknown | + + + | Race | Unknown | + + + | Ethnic Group | Unknown | + + + Author + + + | Author | [facility] | | | and [place] | + + + | Organization | [facility] | | | and [place] [...] Team Providers + +------+ + | Care Nurse General Duty Name | Role | Phone | + +------+ + PCP | Unavailable | + +------+ + Encounter Details +--------+ + + + + | Date | Type | Department | Care Team | Description | +--------+ + + + + | 11/04/ | Hospital | [facility] | Jordan Escalera MD | | | 1997 | Encounter | MED CTR GENERIC OP | [address] | | | | | CONV DEPT [address] | [address] | | | | | [place], | [address] | | | | | [place] [address] | | | | | | [phone] | | | +--------+ + + + [...]
--- OUTSIDE RECORDS SUMMARY | ~2019-04-14 | XMS | Encounter Summary ---
Demographics + + + | Address | [address] | | | [place] [address] | + + + | Home Phone | | + + + | Preferred Language | Unknown | + + + | Marital Status | Single | + + + | Jewish Affiliation | Unknown | + + + | Race | Unknown | + + + | Ethnic Group | Unknown | + + + Author + + + | Author | [facility] | | | and [place] | + + + | Organization | [facility] | | | and [place] | [...] Team Providers + +------+ + | Care Inspector Dials Name | Role | Phone | + +------+ + PCP | Unavailable | + +------+ + Encounter Details +--------+ + + + + | Date | Type | Department | Care Team | Description | +--------+ + + + + | 11/04/ | Hospital | [facility] | Jordan Escalera MD | | | 1997 | Encounter | MED CTR GENERIC OP | [address] | | | | | CONV DEPT [address] | [address] [place] | | | | | [place], | [address] | | | | | [place] [address] | | | | | | [phone] | | | +--------+ + + + [...]
--- OUTSIDE RECORDS SUMMARY | ~2019-04-14 | XMS | Encounter Summary ---
Demographics + + + | Address | [address] | | | [place] [address] | + + + | Home Phone | | + + + | Preferred Language | Unknown | + + + | Marital Status | Single | + + + | Druze Affiliation | Unknown | + + + | Race | Unknown | + + + | Ethnic Group | Unknown | + + + Author + + + | Author | [facility] | | | and [place] | + + + | Organization | [facility] | | | and [place] [...] Team Providers + +------+ + | Care Administrative Assistant Front Desk Name | Role | Phone | + [...] | 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
--- OUTSIDE RECORDS SUMMARY | ~2019-04-14 | XMS | Encounter Summary ---
Demographics + + + | Address | [address] | | | [place] [address] | + + + | Home Phone [...] Author + + + | Author | [facility] | + + + | Organization | [facility] | + + + | Address | Unknown | + + + | Phone | Unavailable | + + + Support + + +---------+ + | Name | Relationship | Address | Phone | + + +---------+ + | Vicki Espinoza | ECON | Unknown | | + + +---------+ + Care Team Providers + +------+ + | Care Foam Machine Operator Name | Role | Phone [...] | | | | | | | [place], [place] | | | | | | | [address] | | | | | | | Phone: | | | | | | | [phone] | | | | | | | Fax: | | | | | | | [phone] | +--------+--------+ + + + + Encounter Details +--------+---------+ + + + | Date | Type | Department | Care Team | Description | +--------+---------+ + + + | 12/26/ | Office | [facility] | Kayode Peña, | Epiretinal membrane, | | 2018 | Visit | [place] [facility] | [address] | right eye (Primary | | | | [address] | [address] | Dx); 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 [facility] Progress Note 12/26/2017 Assessment & Plan: 87 [...] file Examination: See Ophthalmology Module Attestations: The health information technician, under the supervision of the physician, [...] Performed At | + + + | Farm [facility]cher | [facility] | | [facility] [...] | + + + + + | [facility] | [address] | [place] [address] | | | INSTITUTE | [place]. | [...]
--- OUTSIDE RECORDS SUMMARY | ~2019-04-14 | XMS | Encounter Summary ---
Demographics + + + | Address | [address] | | | [place] [address] | + + + | Home Phone | | + + + | Preferred Language | Unknown | + + + | Marital Status | Single | + + + | Orthodoxy Affiliation | Unknown | + + + | Race | Unknown | + + + | Ethnic Group | Unknown | + + + Author + + + | Author | [facility] | | | and [place] | + + + | Organization | [facility] [...] Team Providers + +------+ + | Care Election Judge Name | Role | Phone | + +------+ + PCP | Unavailable | + +------+ + Encounter Details +--------+ + + + + | Date | Type | Department | Care Team | Description | +--------+ + + + + | 08/19/ | Hospital | [facility] | Jordan Escalera MD | | | 1995 | Encounter | MED CTR MP INTRA OP | [address] | | | | | [address] | [address] | | | | | [place] | [address] | | | | | [address] | | | | | | [phone] | | | +--------+ + + + [...]
--- OUTSIDE RECORDS SUMMARY | ~2019-04-14 | XMS | Encounter Summary ---
Demographics + + + | Address | [address] | | | [place] [address] | + + + | Home Phone | | + + + | Preferred Language | Unknown | + + + | Marital Status | Single | + + + | Catholic Affiliation | Unknown | + + + | Race | Unknown | + + + | Ethnic Group | Unknown | + + + Author + + + | Author | [facility] | | | and [place] | + + + | Organization | [facility] | | | [...] Providers + +------+ + | Care Oracle Consultant Name | Role | Phone | + +------+ + | Andrey Davenport MD | PCP | | + +------+ + Encounter Details +--------+ + + + + | Date | Type | Department | Care Team | Description | +--------+ + + + + | 07/31/ | Hospital | [facility] | Austin Tinajero DO | 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
--- OUTSIDE RECORDS SUMMARY | ~2019-04-14 | XMS | Encounter Summary ---
Demographics + + + | Address | [address] | | | [place] [address] | + + + | Home Phone | | + + + | Preferred Language | Unknown | + + + | Marital Status | Single | + + + | Taoism Affiliation | Unknown | + + + | Race | Unknown | + + + | Ethnic Group | Unknown | + + + Author + + + | Author | [facility] | | | and [place] | + + + | Organization | [facility] | | | and [...] Team Providers + +------+ + | Care Naturopathic Oncology Provider Name | Role | Phone | + +------+ + PCP | Unavailable | + +------+ + Encounter Details +--------+ + + + + | Date | Type | Department | Care Team | Description | +--------+ + + + + | 01/28/ | Hospital | [facility] | Peter Nunez, | | | 2000 | Encounter | MED CTR XRAY [address] | MD Hernandez [facility] | | | | | [address] | [place] | | | | | [place] [address] | [id number] | | | | | [phone] | | | +--------+ + + + [...]
--- OUTSIDE RECORDS SUMMARY | ~2019-04-14 | XMS | Encounter Summary ---
Demographics + + + | Address | [address] | | | [place] [address] | + + + | Home Phone | | + + + | Preferred Language | Unknown | + + + | Marital Status | Single | + + + | Congregational Affiliation | Unknown | + + + | Race | Unknown | + + + | Ethnic Group | Unknown | + + + Author + + + | Author | [facility] | | | and [place] | + + + | Organization | [facility] | [...] Team Providers + +------+ + | Care Log Haul Operator Name | Role | Phone | + +------+ + PCP | Unavailable | + +------+ + Encounter Details +--------+ + + + + | Date | Type | Department | Care Team | Description | +--------+ + + + + | 01/21/ | Hospital | [facility] | Jordan Escalera MD | | | 1990 | Encounter | MED CTR GENERIC OP | [address] | | | | | CONV DEPT [address] | [address] | | | | | [place], | [id number] | | | | | [place] [address] | | | | | | [phone] | | | +--------+ + + + [...]
--- OUTSIDE RECORDS SUMMARY | ~2019-04-14 | XMS | Encounter Summary ---
Demographics + + + | Address | [address] | | | [place] [address] | + + + | Home Phone | | + + + | Preferred Language | Unknown | + + + | Marital Status | Single | + + + | Buddhist Affiliation | Unknown | + + + | Race | Unknown | + + + | Ethnic Group | Unknown | + + + Author + + + | Author | [facility] | | | and [place] | + + + | Organization | [facility] | | [...] Team Providers + +------+ + | Care Sap Bi Architect Name | Role | Phone | + +------+ + PCP | Unavailable | + +------+ + Encounter Details +--------+ + + + + | Date | Type | Department | Care Team | Description | +--------+ + + + + | 03/04/ | Hospital | [facility] | Jordan Escalera MD | | | 2006 | Encounter | MED CTR GENERIC OP | [address] | | | | | CONV DEPT [address] | [address] | | | | | [place], | [id number] | | | | | [place] [address] | | | | | | [phone] | | | +--------+ + + + [...]
--- OUTSIDE RECORDS SUMMARY | ~2019-04-14 | XMS | Encounter Summary ---
Demographics + + + | Address | [address] | | | [place] [address] | + + + | Home Phone | | + + + | Preferred Language | Unknown | + + + | Marital Status | Single | + + + | Yazidi Affiliation | Unknown | + + + | Race | White | + + + | Ethnic Group | Not or | + + + Author + + + | Author | [facility] | + + + | Organization | [facility] | + + + | Address | Unknown | + + + | Phone | Unavailable | + + + Support + + +---------+ + | Name | Relationship | Address | Phone | + + +---------+ + | Vicki Espinoza | ECON | Unknown | | + + +---------+ + Care Team Providers + +------+ + | Care Referral Management Liaison Name | Role | Phone | + [...] | | | | | | | [place], [place] | | | | | | | [address] | | | | | | | Phone: | | | | | | | [phone] | | | | | | | Fax: | | | | | | | [phone] | +--------+--------+ + + + + Encounter Details +--------+---------+ + + + | Date | Type | Department | Care Team | Description | +--------+---------+ + + + | 12/26/ | Office | [facility] | Kayode Peña, | Epiretinal membrane, | | 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 [facility] Progress Note 12/26/2017 Assessment & Plan: [...] file Examination: See Ophthalmology Module Attestations: The patient services technician, under the supervision of the physician, [...] Performed At | + + + | Billing Coordinator | [facility] | | [facility] [...] [facility] | [address] | [place] [address] | | | INSTITUTE | [place]. | [...]
--- OUTSIDE RECORDS SUMMARY | ~2019-04-14 | XMS | Encounter Summary ---
Demographics + + + | Address | [address] | | | [place] [address] | + + + | Home Phone | | + + + | Preferred Language | Unknown | + + + | Marital Status | Single | + + + | Muslim Affiliation | Unknown | + + + | Race | Unknown | + + + | Ethnic Group | Unknown | + + + Author + + + | Author | [facility] | | | and [place] | + + + | Organization | [facility] | | | and [place] [...] Team Providers + +------+ + | Care Cathead Worker Name | Role | Phone | [...] [address] | | | | | [phone] | [place] [address] | | +--------+ + + + + [...]
--- OUTSIDE RECORDS SUMMARY | ~2019-04-14 | XMS | Encounter Summary ---
Demographics + + + | Address | [address] | | | [place] [address] | + + + | Home Phone | | + + + | Preferred Language | Unknown | + + + | Marital Status | Single | + + + | Christian Affiliation | Unknown | + + + | Race | Unknown | + + + | Ethnic Group | Unknown | + + + Author + + + | Author | [facility] | | | and [place] | + + + | Organization | [facility] | | | and [place] [...] Team Providers + +------+ + | Care Keno Manager Name | Role | Phone | + +------+ + PCP | Unavailable | + +------+ + Encounter Details +--------+ + + + + | Date | Type | Department | Care Team | Description | +--------+ + + + + | 02/18/ | Hospital | [facility] | | | | 2006 - | Encounter | MED CTR CANCER | | | | | | CENTER [address] | | | | 02/26/ | | [place] | | | | 2006 | | [address] | | | | | | [phone] | | | +--------+ + + + [...]
--- OUTSIDE RECORDS SUMMARY | ~2019-04-14 | XMS | Encounter Summary ---
Demographics + + + | Address | [address] | | | [place] [address] | + + + | Home Phone | | + + + | Preferred Language | Unknown | + + + | Marital Status | Single | + + + | Mormonism Affiliation | Unknown | + + + | Race | Unknown | + + + | Ethnic Group | Unknown | + + + Author + + + | Author | [facility] | | | and [place] | + + + | Organization | [facility] [...] Team Providers + +------+ + | Care Crushed Stone Grader Name | Role | Phone | + +------+ + PCP | Unavailable | + +------+ + Encounter Details +--------+ + + + + | Date | Type | Department | Care Team | Description | +--------+ + + + + | 04/15/ | Hospital | [facility] | Jordan Escalera MD | | | 2008 | Encounter | MED CTR XRAY [address] | [address] | | | | | [place] | [address] | | | | | [place] [address] | [address] | | | | | [phone] | | | +--------+ + + + [...]
--- OUTSIDE RECORDS SUMMARY | ~2019-04-14 | XMS | Encounter Summary ---
Demographics + + + | Address | [address] | | | [place] [address] | + + + | Home Phone | | + + + | Preferred Language | Unknown | + + + | Marital Status | Single | + + + | Anabaptist Affiliation | Unknown | + + + | Race | Unknown | + + + | Ethnic Group | Unknown | + + + Author + + + | Author | [facility] | | | and [place] | + + + | Organization | [facility] | | | and [...] Team Providers + +------+ + | Care Clinical Nursing Assistant Name | Role | Phone | + +------+ + PCP | Unavailable | + +------+ + Encounter Details +--------+ + + + + | Date | Type | Department | Care Team | Description | +--------+ + + + + | 08/15/ | Hospital | [facility] | | | | 2004 - | Encounter | MED CTR GENERIC OP | | | | | | CONV DEPT [address] | | | | 11/13/ | | [place], | | | | 2004 | | [place] [address] | | | | | | [phone] | | | +--------+ + + + [...]
--- OUTSIDE RECORDS SUMMARY | ~2019-04-14 | XMS | Encounter Summary ---
Demographics + + + | Address | [address] | | | [place] [address] | + + + | Home Phone [...] + | Author | [facility] | | | and [place] | + + + | Organization | [facility] | | | and [place] [...] Team Providers + +------+ + | Care External Relations Director Name | Role | Phone | + +------+ + | Andrey Davenport MD | PCP | | + +------+ + Reason for Visit + + + | Reason | Comments | + + + | Follow-up | | + + + Encounter Details +--------+ + + + + | Date | Type | Department | Care Team | Description | +--------+ + + + + | 11/05/ | Hospital | [facility] | Marilyn Monroy | Diffuse large B-cell | | 2019 | Encounter | MED CTR RADIATION | MD Anupama [address] | lymphoma of | | | | ONCOLOGY CLINIC [address] | [place], [place] | extranodal site | | | | [place] | [address] | excluding spleen and | | | | [place] [address] | | other solid organs | | | | [phone] | | (HCC) (Primary Dx) | +--------+ [...] + + + | Blood Pressure | 138/64 | 11/05/2018 10:43 AM | | | | | PDT | | + + + + + | Pulse | 70 | 11/05/2018 10:43 AM | | | | | PDT | | + + + + + | Temperature | 36.9 C (98.4 F) | 11/05/2018 10:43 AM | | | | | PDT | | + + + + + | Respiratory Rate | 16 | 11/05/2018 10:43 AM | | | | | PDT | | + + + + + | Oxygen Saturation | 96% | 11/05/2018 10:43 AM | | | | | PDT | | + + + + + | Inhaled Oxygen | - | - | | | Concentration | | | | + + + + + | Weight | 75.6 kg (166 lb 10.7 | 11/05/2018 10:43 AM | | | | oz) | PDT | | + + + + + | Height | - | - | | + + + + + | Body Mass Index | 23.86 | 07/04/2018 8:26 AM | | | | | PST | | + + + + + documented in this encounter Discharge Instructions Patient Instructions Inga Murillo RN - 11/05/2018 11:09 AM PDTFollow-up with Dr. Angeles rodas as needed. Labs: none Imaging: none Medication changes: none Referrals: none Follow-up with Dr. Flynn as directed, in November 2018. Self-care recommendations: Monitor the left posterior lump on rib cage for any changes in s ize/tenderness and report if this occurs. documented in this encounter Medications at Time [...] | + + + +---------+--------+ + | Famotidine (PEPCID | Take by mouth. As | | 0 | | | | PO) | needed | | | | | + + + +---------+--------+ + | ibuprofen (ADVIL, | Take 200 mg by mouth | | 0 | | | | MOTRIN) 200 mg | every 6 hours as | | | | | | tablet | needed. Takes | | | | | | | occasionally | | | | | + + [...] encounter Progress Notes Marilyn Monroy MD - 11/05/2018 11:18 AM PDT Radiation Oncology Follow-up Chief Complaint/ICD10 ICD-10-CM ICD-9-CM 1. 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 Radiation related symptoms: None, denies chest wall/rib pain. No skin changes from radiatio n. No changes in breathing. Disease related symptoms: None, reports only a small fullness remains at the initial site o f disease. No enlargement. No pain. No new lumps or nodules. Denies weight loss, night sweat s or fevers. General health: Great. Since completing radiation treatment he has undergone bilateral ing uinal hernia repairs. Recovering well. Ongoing treatment: None Ongoing follow up will be overseen by Dr. Flynn. Review of systems: Constitutional: Denies fatigue. Denies high fevers, shaking chills, anorexia, nausea, vomit ing, weight loss, or night sweats. Appetite without changes. Ear, Nose, Mouth, Throat: Denies odynophagia, dysphagia, or tinnitus. Cardiovascular: Reports shortness of breath and dyspnea with exertion due to asthma, unchan ged. Denies chest pain, palpitations or orthopnea. Respiratory: Denies cough, hemoptysis, or sputum production. Gastrointestinal: Reports occasional abdominal pain due to hernia, has improved. Reports co nstipation controlled with stool softeners or other OTC as needed. Denies constipation, diar bee, melena, or bright red blood per rectum. Genitourinary: Denies hematuria or dysuria. Musculoskeletal: Reports intermittent joint pain in bilateral hips, unchanged. Neurologic: Reports intermittent numbness and tingling in bilateral feet in the toes, uncha nged. Denies headache or visual changes. Endocrine: Denies peripheral edema or heat/cold intolerance. Hematologic: Denies spontaneous bruising or bleeding. Integumentary: Denies rash, wounds or other skin concerns. Pain: Denies pain. Note: Here for 3 month follow up with Dr. Randhawa. My chart: Declined Pain assessment: Location: NA Pain Level: PAIN PROG PAIN LEVEL: 0 Current Outpatient Medications Medication Sig Dispense Refill albuterol (PROVENTIL) 90 [...] by mouth nightly. No current facility-administered medications for this encounter. Allergies Allergen Reactions Levofloxacin Hives Fluvastatin Other (See Comments) Pravastatin Other (See Comments) Intolerance No active intolerances/contraindications Vitals: 11/05/18 1043 BP: 138/64 Pulse: 70 Resp: 16 Temp: 36.9 C (98.4 F) Wt Readings from Last 3 Encounters: 11/05/18 75.6 kg (166 lb 10.7 oz) 08/06/18 75.4 kg (166 lb 3.6 oz) 07/31/18 75.7 kg (166 lb 14.2 oz) Physical Exam: General: Healthy appearing adult male in no acute medical distress. KPS: 100 HEENT: Pupils equal, round and reactive to light. No conjunctival icterus or injection. EOM I. Oral, moist mucus membranes. Lymphatic: No cervical, supraclavicular or axillary lymphadenopathy. Cardiovascular: Regular rate and rhythm, no murmur. Pulmonary: Breath sounds heard throughout, no adventitial sounds or increased work of breat geri at rest. Chest/back: 3cm by 2cm, mobile fullness at left upper back, he reports this is chronic rela bharat to a prior cystic lesion. At treated site there is a firm mobile 2x2cm nodule posterior lateral chest wall. No pain on palpation. No skin changes. Stable Extremities: Upper and lower extremities warm and well perfused with no upper or lower extr emity edema. Neurologic: Alert, oriented and appropriated in conversation. CN II-IX grossly intact. Moves all 4 extremities normally with normal gait. Psychiatric: Appropriate. Labs: No recent results. Imaging: No recent relevant results. Assessment: ICD-10-CM ICD-9-CM 1. 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 He does not have any lasting side-effects of treatment. No evidence of disease on history or exam. Plan: Follow-up with Dr. Porfirio rodas as needed. Labs: none Imaging: none Medication changes: none Referrals: none Follow-up with Dr. Flynn as directed, in November 2018. Self-care recommendations: Monitor the left posterior lump on rib cage for any changes in s ize/tenderness and report if this occurs. No orders of the defined types were placed in this encounter. Thank you for allowing me to participate in the care of Sukh Bolden. If you should have any questions regarding this evaluation, please do not hesitate to contact me. Marilyn Monroy M.D. 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
--- OUTSIDE RECORDS SUMMARY | ~2019-04-14 | XMS | Encounter Summary ---
Demographics + + + | Address | [address] | | | [place] [address] | + + + | Home Phone | | + + + | Preferred Language | Unknown | + + + | Marital Status | Single | + + + | Restorationist Affiliation | Unknown | + + + | Race | Unknown | + + + | Ethnic Group | Unknown | + + + Author + + + | Author | [facility] and [facility] | | | and [place] | + + + | Organization | [facility] | | | and [place] [...] Team Providers + +------+ + | Care Welder Machine Operator Name | Role | Phone [...] | | | ONCOLOGY CLINIC [address] | [place], [place] | extranodal site | | | | [place] | [address] | excluding spleen and | | | | [place] [address] | | other solid organs | | | | [phone] | | (HCC) (Primary Dx) | +--------+ [...] needed. - Follow-up with Dr. Flynn in [place] as directed. 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
--- OUTSIDE RECORDS SUMMARY | ~2019-04-14 | XMS | Encounter Summary ---
Demographics + + + | Address | [address] | | | [place] [address] | + + + | Home Phone | | + + + | Preferred Language | Unknown | + + + | Marital Status | Single | + + + | Scientologist Affiliation | Unknown | + + + | Race | Unknown | + + + | Ethnic Group | Unknown | + + + Author + + + | Author | [facility] | | | and [place] | + + + | Organization | [facility] | | [...] Team Providers + +------+ + | Care Brick Tester Name | Role | Phone | + +------+ + PCP | Unavailable | + +------+ + Reason for Visit +--------+ + | Reason | Comments | +--------+ + | Other | | +--------+ + Encounter Details +--------+ + + + + | Date | Type | Department | Care Team | Description | +--------+ + + + + | 03/13/ | Telephone | [facility] | [place], | Other | | 2018 | | MED CTR MEDICAL | Michael Donato MD [address] | | | | | ONCOLOGY CLINIC [address] | [address] [place] | | | | | [address] [place] | [place] [address] | | | | | [place] [address] | [phone] | | | | | [phone] | | | +--------+ + + + [...]
--- OUTSIDE RECORDS SUMMARY | ~2019-04-14 | XMS | Encounter Summary ---
Demographics + + + | Address | [address] | | | [place] [address] | + + + | Home Phone | | + + + | Preferred Language | Unknown | + + + | Marital Status | Single | + + + | Pentecostalism Affiliation | Unknown | + + + | Race | Unknown | + + + | Ethnic Group | Unknown | + + + Author + + + | Author | [facility] | | | and [place] | + + + | Organization | [facility] | | | and [...] Team Providers + +------+ + | Care Sales Designer Name | Role | Phone | [...] | | | | unspecified | [address], | [place], | | | | | site (HCC) | [address] | [place] [address] | | | | | Procedures | [place], | Phone: | | | | | [place] OFFICE | [place] [address] | [phone] | | | | | OUTPATIENT | | Fax: | | | | | NEW 45 | | [phone] | | | | | MINUTES | | | + +--------+ + + + + Encounter Details +--------+ + + + + | Date | Type | Department | Care Team | Description | +--------+ + + + + | 01/01/ | Procedure | [facility] | Ciara Hardin MD | Port-A-Cath in place | | 2019 | visit | SURGERY [address] | [address] [place] | | | | | [place], [place] | [place] [address] | | | | | [address] | [phone] | | | | | [phone] | | | +--------+ + + + [...] 9:15 AM PDT Procedure Note Name:SUKH BOLDEN Leon Pre-op Diagnosis: PowerPort in place, lymphoma Post-op [...] this chart may have been created with Draftster voice recognition software. Occasi onal wrong-word or [...] IMAGING REPORT - | | 01/02/2019 | Port-A-Cath in | Results for this | | [...]
--- OUTSIDE RECORDS SUMMARY | ~2019-04-14 | XMS | Encounter Summary ---
Demographics + + + | Address | [address] | | | [place] [address] | + + + | Home Phone | | + + + | Preferred Language | Unknown | + + + | Marital Status | Single | + + + | Baptist Affiliation | Unknown | + + + | Race | Unknown | + + + | Ethnic Group | Unknown | + + + Author + + + | Author | [facility] | | | and [place] | + + + | Organization | [facility] | | | and [place] [...] Providers + +------+ + | Care Oracle Hrms Developer Name | Role | Phone | + +------+ + PCP | Unavailable | + +------+ + Encounter Details +--------+ + + + + | Date | Type | Department | Care Team | Description | +--------+ + + + + | 11/03/ | Hospital | [facility] | | | | 2001 - | Encounter | MED CTR CANCER | | | | | | CENTER [address] | | | | 02/01/ | | [place] | | | | 2001 | | [address] | | | | | | [phone] | | | +--------+ + + + [...]
--- OUTSIDE RECORDS SUMMARY | ~2019-04-14 | XMS | Encounter Summary ---
Demographics + + + | Address | [address] | | | [place] [address] | + + + | Home Phone | | + + + | Preferred Language | Unknown | + + + | Marital Status | Single | + + + | Jainism Affiliation | Unknown | + + + | Race | Unknown | + + + | Ethnic Group | Unknown | + + + Author + + + | Author | [facility] | | | and [place] | + + + | Organization | [facility] | | | and [place] [...] Team Providers + +------+ + | Care Reproduction Production Manager Name | Role | Phone | + +------+ + PCP | Unavailable | + +------+ + Encounter Details +--------+ + + + + | Date | Type | Department | Care Team | Description | +--------+ + + + + | 02/18/ | Hospital | [facility] | | | | 2006 - | Encounter | MED CTR CANCER | | | | | | CENTER [address] | | | | 02/26/ | | [place] | | | | 2006 | | [address] | | | | | | [phone] | | | +--------+ + + + [...]
--- OUTSIDE RECORDS SUMMARY | ~2019-04-14 | XMS | Encounter Summary ---
Demographics + + + | Address | [address] | | | [place] [address] | + + + | Home Phone [...] + | Author | [facility] | | | and [place] | + + + | Organization | [facility] | | | and [...] Team Providers + +------+ + | Care Painter And Paperhanger Apprentice Name | Role | Phone | + +------+ + PCP | Unavailable | + +------+ + Encounter Details +--------+ + + + + | Date | Type | Department | Care Team | Description | +--------+ + + + + | 03/04/ | Hospital | [facility] | Jordan Escalera MD | | | 2006 | Encounter | MED CTR GENERIC OP | [address] | | | | | CONV DEPT [address] | [address] [place] | | | | | [place], | [id number] | | | | | [place] [address] | | | | | | [phone] | | | +--------+ + + + [...]
--- OUTSIDE RECORDS SUMMARY | ~2019-04-14 | XMS | Encounter Summary ---
Demographics + + + | Address | [address] | | | [place] [address] | + + + | Home Phone [...] + + + | Author | [facility] | | | and [place] | + + + | Organization | [facility] | | | and [place] [...] Team Providers + +------+ + | Care Orthotist/Prosthetist Name | Role | Phone | + [...] [place] | | | | | [address] [place] | [place] [address] | | | | | [place] [address] | [phone] | | | | | [phone] | | | +--------+ + + + [...]
--- OUTSIDE RECORDS SUMMARY | ~2019-04-14 | XMS | Encounter Summary ---
Demographics + + + | Address | [address] | | | [place] [address] | + + + | Home Phone | | + + + | Preferred Language | Unknown | + + + | Marital Status | Single | + + + | Cheondoism Affiliation | Unknown | + + + | Race | Unknown | + + + | Ethnic Group | Unknown | + + + Author + + + | Author | [facility] | | | and [place] | + + + | Organization | [facility] | | | and [...] Team Providers + +------+ + | Care Line Ordering Clinician Name | Role | Phone | + [...] + + | 07/17/ | Hospital | [facility] | Marilyn Monroy | Diffuse large B-cell | | 2019 | Encounter | MED CTR RADIATION | MD Anupama [address] | lymphoma of | | | | ONCOLOGY CLINIC [address] | [place], [place] | extranodal site | | | | [place] | [address] | excluding spleen and | | | | [place] [address] | | other solid organs | | | | [phone] | | (HCC) (Primary Dx) | +--------+ [...]
--- OUTSIDE RECORDS SUMMARY | ~2019-04-14 | XMS | Encounter Summary ---
Demographics + + + | Address | [address] | | | [place] [address] | + + + | Home Phone | | + + + | Preferred Language | Unknown | + + + | Marital Status | Single | + + + | Buddhism Affiliation | Unknown | + + + | Race | Unknown | + + + | Ethnic Group | Unknown | + + + Author + + + | Author | [facility] | | | and [place] | + + + | Organization | [facility] | | [...] Team Providers + +------+ + | Care Director Of Market Intelligence Name | Role | Phone | + [...] | non-Hodgkin | [place], [place] | [place] [address] | | | | | lymphoma, | [address] | Phone: | | | | | unspecified | Phone: | [phone] | | | | | body region | [phone] | Fax: | | | | | (HCC) | Fax: | [phone] | | | | | | [phone] | | +--------+ + + + + + Encounter Details +--------+---------+ + + + | Date | Type | Department | Care Team | Description | +--------+---------+ + + + | 01/07/ | Office | [facility] | Ciara Hardin MD | Post-operative state | | 2019 | Visit | SURGERY [address] | [address] [place] | (Primary Dx); Other | | | | [place], [place] | [place] [address] | specified type of | | | | [address] | [phone] | non-Hodgkin | | | | [phone] | | lymphoma, | | | | [...] unspecified body region (HCC) - Hardin surgery Sotero's port removal site is healing well. Again discussed that his pain at the prior port s ite may not resolve completely due to scar tissue that is present in the area. Discussed tr ial of anti-inflammatory medication for several days to try to help with the pain. May foll ow-up on an as-needed basis. Ciara Hardin MD CC PCP: Lonnie Ortega MD Portions of this chart may have been created with Qwite voice recognition software. Occasi onal wrong-word or [...]
--- OUTSIDE RECORDS SUMMARY | ~2019-04-14 | XMS | Encounter Summary ---
Demographics + + + | Address | [address] | | | [place] [address] | + + + | Home Phone [...] + | Organization | [facility] | [...] Team Providers + +------+ + | Care Comptometer Operator Name | Role | Phone | + +------+ + PCP | Unavailable | + +------+ + Encounter Details +--------+ + + + + | Date | Type | Department | Care Team | Description | +--------+ + + + + | 04/15/ | Hospital | [facility] | Jordan Escalera MD | | | 2008 | Encounter | MED CTR XRAY [address] | [address] | | | | | [place] | [address] | | | | | [place] [address] | [address] | | | | | [phone] | | | +--------+ + + + [...]
--- OUTSIDE RECORDS SUMMARY | ~2019-04-14 | XMS | Encounter Summary ---
Demographics + + + | Address | [address] | | | [place] [address] | + + + | Home Phone | | + + + | Preferred Language | Unknown | + + + | Marital Status | Single | + + + | Temple Affiliation | Unknown | + + + | Race | Unknown | + + + | Ethnic Group | Unknown | + + + Author + + + | Author | [facility] and [facility] | | | and [place] | + + + | Organization | [facility] [...] Providers + +------+ + | Care Environmental Marketing Representative Name | Role | Phone | + [...] | | unspecified | [address], | [place], | | | | | site (HCC) | [address] | [place] [address] | | | | | Procedures | [place], | Phone: | | | | | [place] OFFICE | [place] [address] | [phone] | | | | | OUTPATIENT | | Fax: | | | | | NEW 45 | | [phone] | | | | | MINUTES | [...] [place] | | | | | [place], [place] | [place] [address] | | | | | [address] | [phone] | | | | | [phone] | | | +--------+ + + + [...] this chart may have been created with Aicent voice recognition software. Occasi onal wrong-word or [...]
--- OUTSIDE RECORDS SUMMARY | ~2019-04-14 | XMS | Encounter Summary ---
Demographics + + + | Address | [address] | | | [place] [address] | + + + | Home Phone [...] | Organization | [facility] | | | [...] Team Providers + +------+ + | Care Sausage Grinder Name | Role | Phone | + [...] | non-Hodgkin | [place], [place] | [place] [address] | | | | | lymphoma, | [address] | Phone: | | | | | unspecified | Phone: | [phone] | | | | | body region | [phone] | Fax: | | | | | (HCC) | Fax: | [phone] | | | | | | [phone] | | +--------+ + + + + + Encounter Details +--------+---------+ + + + | Date | Type | Department | Care Team | Description | +--------+---------+ + + + | 01/07/ | Office | [facility] | Ciara Hardin MD | Post-operative state | | 2019 | Visit | SURGERY [address] | [address] [place] | (Primary Dx); Other | | | | [place], [place] | [place] [address] | specified type of | | | | [address] | [phone] | non-Hodgkin | | | | [phone] | | lymphoma, | | | | [...] this chart may have been created with Wirescan voice recognition software. Occasi onal wrong-word or [...]
--- OUTSIDE RECORDS SUMMARY | ~2019-04-14 | XMS | Encounter Summary ---
Demographics + + + | Address | [address] | | | [place] [address] | + + + | Home Phone | | + + + | Preferred Language | Unknown | + + + | Marital Status | Single | + + + | Mu-Ism Affiliation | Unknown | + + + | Race | Unknown | + + + | Ethnic Group | Unknown | + + + Author + + + | Author | [facility] | | | and [place] | + + + | Organization | [facility] | | | and [...] Providers + +------+ + | Care Web Ui Designer Name | Role | Phone | + +------+ + PCP | Unavailable | + +------+ + Encounter Details +--------+ + + + + | Date | Type | Department | Care Team | Description | +--------+ + + + + | 01/22/ | Hospital | [facility] | Peter Nunez, | | | 2000 | Encounter | MED CTR MP INTRA OP | [address] | | | | | [address] | [place] | | | | | [place] | [address] | | | | | [address] | | | | | | [phone] | | | +--------+ + + + [...]
--- OUTSIDE RECORDS SUMMARY | ~2019-04-14 | XMS | Clinical Summary ---
Demographics + + + | Address | [address] | | | [place] [address] | + + + | Home Phone [...] + + | Author | [facility] | + + + | Organization | [facility] | + + + | Address | Unknown | + + + | Phone | Unavailable | + + + Support + + +---------+ + | Name | Relationship | Address | Phone | + + +---------+ + | Vicki Espinoza | ECON | Unknown | | + + +---------+ + Care Team Providers + +------+ + | Care Cognos Architect Name | Role | Phone | + +------+ + | Roxana Kemp PA-C | PCP | | + +------+ + Source Comments FIONA is fully live on both [facility] Ambulatory and [facility] InPatient.[facility] Allergies + + + + + + [...] | MEDICA | xxxxxxxxxxx | 10/27/18 | [phone] | [address] | Medica | | | RE A & | | 96-Pre | 1 | [address] | re | | | B | | sent | | [place] | | | | | | | | [address] | | + +--------+ +--------+ + +--------+ | MODA MEDICARE | MODA | xxxxxxxxx | 04/29/19 | [phone] | [address] | POS | | SUPPLEMENT | MEDICA | | 17-Pre | 4 | [address] | | | | RE | | sent | | [place], | | | | SUPPLE | | | | [place] [address] | | | | MENT | | [...] [place] | | | 8 (Home) | [address] | + +--------+ +--------+ + +"
--- OUTSIDE RECORDS SUMMARY | ~2019-04-14 | XMS | Encounter Summary ---
Demographics + + + | Address | [address] | | | [place] [address] | + + + | Home Phone | | + + + | Preferred Language | Unknown | + + + | Marital Status | Single | + + + | Worship Affiliation | Unknown | + + + | Race | Unknown | + + + | Ethnic Group | Unknown | + + + Author + + + | Author | [facility] | | | and [place] | + + + | Organization | [facility] | | | and [...] Team Providers + +------+ + | Care Iridologist Name | Role | Phone | + +------+ + PCP | Unavailable | + +------+ + Encounter Details +--------+ + + + + | Date | Type | Department | Care Team | Description | +--------+ + + + + | 01/21/ | Hospital | [facility] | Jordan Escalera MD | | | 1990 | Encounter | MED CTR GENERIC OP | [address] | | | | | CONV DEPT [address] | [address] [place] | | | | | [place], | [id number] | | | | | [place] [address] | | | | | | [phone] | | | +--------+ + + + [...]
--- OUTSIDE RECORDS SUMMARY | ~2019-04-14 | XMS | Encounter Summary ---
Demographics + + + | Address | [address] | | | [place] [address] | + + + | Home Phone | | + + + | Preferred Language | Unknown | + + + | Marital Status | Single | + + + | Mandaeism Affiliation | Unknown | + + + | Race | Unknown | + + + | Ethnic Group | Unknown | + + + Author + + + | Author | [facility] | | | and [place] | + + + | Organization | [facility] [...] Team Providers + +------+ + | Care Cook Fruit Name | Role | Phone | + [...] | | | | | | [place] [address] | | | | | | [phone] | | | +--------+ + + + [...]
--- OUTSIDE RECORDS SUMMARY | ~2019-04-14 | XMS | Encounter Summary ---
Demographics + + + | Address | [address] | | | [place] [address] | + + + | Home Phone [...] + + + | Author | [facility] | | | and [place] | + + + | Organization | [facility] | [...] Team Providers + +------+ + | Care Wildland Firefighter Name | Role | Phone | + +------+ + PCP | Unavailable | + +------+ + Encounter Details +--------+ + + + + | Date | Type | Department | Care Team | Description | +--------+ + + + + | 11/11/ | Hospital | [facility] | | | | 2000 | Encounter | MED CTR XRAY [address] | | | | | | [place] | | | | | | [place] [address] | | | | | | [phone] | | | +--------+ + + + [...]
--- OUTSIDE RECORDS SUMMARY | ~2019-04-14 | XMS | Encounter Summary ---
Demographics + + + | Address | [address] | | | [place] [address] | + + + | Home Phone [...] + | Organization | [facility] | | | [...] Team Providers + +------+ + | Care Racing Mechanic Name | Role | Phone | [...] [place] | | | | | [address] [place] | [place] [address] | | | | | [place] [address] | [phone] | | | | | [phone] | | | +--------+ + + + [...]
--- OUTSIDE RECORDS SUMMARY | ~2019-04-14 | XMS | Encounter Summary ---
Demographics + + + | Address | [address] | | | [place] [address] | + + + | Home Phone [...] + + + | Author | [facility] | | | and [place] | + + + | Organization | [facility] | [...] Team Providers + +------+ + | Care Muffle Operator Name | Role | Phone | + +------+ + | Andrey Davenport MD | PCP | | + +------+ + Encounter Details +--------+ + + + + | Date | Type | Department | Care Team | Description | +--------+ + + + + | 08/02/ | Hospital | [facility] | Marilyn Monroy | | | 2019 | Encounter | MED CTR RADIATION | MD Anupama [address] | | | | | ONCOLOGY [address] | [place] | | | | | [place], | [address] | | | | | [place] [address] | | | | | | [phone] | | | +--------+ + + + [...]
--- OUTSIDE RECORDS SUMMARY | ~2019-04-14 | XMS | Encounter Summary ---
Demographics + + + | Address | [address] | | | [place] [address] | + + + | Home Phone [...] | Organization | [facility] | [...] Providers + +------+ + | Care Information Management Specialist Name | Role | Phone | + +------+ + PCP | Unavailable | + +------+ + Encounter Details +--------+ + + + + | Date | Type | Department | Care Team | Description | +--------+ + + + + | 04/15/ | Hospital | [facility] | | | | 2008 - | Encounter | MED CTR CANCER | | | | | | CENTER [address] | | | | 04/28/ | | [place] | | | | 2008 | | [address] | | | | | | [phone] | | | +--------+ + + + [...]
--- OUTSIDE RECORDS SUMMARY | ~2019-04-14 | XMS | Encounter Summary ---
Demographics + + + | Address | [address] | | | [place] [address] | + + + | Home Phone [...] | Organization | [facility] | | | and [...] Providers + +------+ + | Care Retail Warehouse Supervisor Name | Role | Phone | [...] [address] | | | | | [phone] | [place] [address] | | +--------+ + + + + [...]
--- OUTSIDE RECORDS SUMMARY | ~2019-04-14 | XMS | Encounter Summary ---
Demographics + + + | Address | [address] | | | [place] [address] | + + + | Home Phone [...] Organization | [facility] | | | and [...] Team Providers + +------+ + | Care Wardsperson Name | Role | Phone | + +------+ + PCP | Unavailable | + +------+ + Encounter Details +--------+ + + + + | Date | Type | Department | Care Team | Description | +--------+ + + + + | 10/15/ | Hospital | [facility] | | | | 2008 - | Encounter | MED CTR CANCER | | | | | | CENTER [address] | | | | 10/26/ | | [place] | | | | 2008 | | [address] | | | | | | [phone] | | | +--------+ + + + [...]
--- OUTSIDE RECORDS SUMMARY | ~2019-04-14 | XMS | Encounter Summary ---
Demographics + + + | Address | [address] | | | [place] [address] | + + + | Home Phone | | + + + | Preferred Language | Unknown | + + + | Marital Status | Single | + + + | Presybeterian Affiliation | Unknown | + + + | Race | Unknown | + + + | Ethnic Group | Unknown | + + + Author + + + | Author | [facility] | | | and [place] | + + + | Organization | [facility] | | | and [...] Team Providers + +------+ + | Care Space Systems Operations Superintendent Name | Role | Phone | + +------+ + PCP | Unavailable | + +------+ + Encounter Details +--------+ + + + + | Date | Type | Department | Care Team | Description | +--------+ + + + + | 04/15/ | Hospital | [facility] | Jordan Escalera MD | | | 2008 | Encounter | MED CTR GENERIC OP | [address] | | | | | CONV DEPT [address] | [address] [place] | | | | | [place], | [address] | | | | | [place] [address] | | | | | | [phone] | | | +--------+ + + + [...]
--- OUTSIDE RECORDS SUMMARY | ~2019-04-14 | XMS | Encounter Summary ---
Demographics + + + | Address | [address] | | | [place] [address] | + + + | Home Phone [...] + + + | Author | [facility] | | | and [place] | + + + | Organization | [facility] | [...] Team Providers + +------+ + | Care Auto Roller Name | Role | Phone | + +------+ + PCP | Unavailable | + +------+ + Encounter Details +--------+ + + + + | Date | Type | Department | Care Team | Description | +--------+ + + + + | 02/24/ | Hospital | [facility] | Jordan Escalera MD | | | 2002 | Encounter | MED CTR GENERIC OP | [address] | | | | | CONV DEPT [address] | [address] [place] | | | | | [place], | [address] | | | | | [place] [address] | | | | | | [phone] | | | +--------+ + + + [...]
--- OUTSIDE RECORDS SUMMARY | ~2019-04-14 | XMS | Encounter Summary ---
Demographics + + + | Address | [address] | | | [place] [address] | + + + | Home Phone [...] + + + | Author | [facility] | | | and [place] | + + + | Organization | [facility] | | | and [...] Team Providers + +------+ + | Care Operational Test Mechanic Name | Role | Phone | [...] + + | 11/05/ | Hospital | [facility] | Marilyn Monroy | Diffuse large B-cell | | 2019 | Encounter | MED CTR RADIATION | MD Anupama [address] | lymphoma of | | | | ONCOLOGY CLINIC [address] | [place], [place] | extranodal site | | | | [place] | [address] | excluding spleen and | | | | [place] [address] | | other solid organs | | | | [phone] | | (HCC) (Primary Dx) | +--------+ [...] prepack) Inhale 1 puff into the lungs TRAIVS RY 4 TO 6 HOURS NEEDED. albuterol-ipratropium [...] M.D. 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
--- OUTSIDE RECORDS SUMMARY | ~2019-04-14 | XMS | Encounter Summary ---
Demographics + + + | Address | [address] | | | [place] [address] | + + + | Home Phone [...] | Organization | [facility] | | | and [place] [...] Team Providers + +------+ + | Care Breakdown Man Name | Role | Phone | [...] | large B-cell | [address] | [facility] | | | | | lymphoma of | [address] | [address] | | | | | extranodal | [place], | AVE | | | | | site | [place] [address] | [place], [place] | | | | | excluding | Phone: | [address] | | | | | spleen and | [phone] | Phone: | | | | | other solid | Fax: | [phone] | | | | | organs (HCC) | [phone] | Fax: | | | | | Procedures | | [phone] | | | | | PET CT [...] | 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, | [address]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 [address] | [place], | | | | | lymphoma of | [address] | [place] [address] | | | | | extranodal | [place], | Phone: | | | | | site | [place] [address] | [phone] | | | | | excluding | Phone: | Fax: | | | | | spleen and | [phone] | [phone] | | | | | other solid | Fax: | | | | | | organs (HCC) | [phone] | | | | | | Procedures [...] [address] | | | | | [place] OFFICE | GABY FAULKNER, | [place], | | | | | OUTPATIENT | [address] | [place] [address] | | | | | VIS[address] | [place], | Phone: | | | | | MINUTES | [place] [address] | [phone] | | | | | | | Fax: | | | | | | | [phone] | +--------+ + + + + + Encounter Details +--------+ + + + + | Date | Type | Department | Care Team | Description | +--------+ + + + + | 07/04/ | Hospital | [facility] | Marilyn Monroy | Diffuse large B-cell | | 2019 | Encounter | MED CTR RADIATION | MD Anupama [address] | lymphoma of | | | | ONCOLOGY CLINIC [address] | [place], [place] | extranodal site | | | | [facility] | [address] | excluding spleen and | | | | [place] [address] | | other solid organs | | | | [phone] | | (HCC) (Primary Dx) | +--------+ [...]
--- OUTSIDE RECORDS SUMMARY | ~2019-04-14 | XMS | Encounter Summary ---
Demographics + + + | Address | [address] | | | [place] [address] | + + + | Home Phone | | + + + | Preferred Language | Unknown | + + + | Marital Status | Single | + + + | Muslim Affiliation | Unknown | + + + | Race | Unknown | + + + | Ethnic Group | Unknown | + + + Author + + + | Author | [facility] | | | and [place] | + + + | Organization | [facility] | [...] Team Providers + +------+ + | Care Taxation Inspector Name | Role | Phone | + +------+ + | Andrey Davenport MD | PCP | | + +------+ + Encounter Details +--------+ + + + + | Date | Type | Department | Care Team | Description | +--------+ + + + + | 07/02/ | Abstract | [facility] | Marilyn Monroy | | | 2019 | | MED CTR RADIATION | MD Anupama [address] | | | | | ONCOLOGY CLINIC [address] | [facility] | | | | | [address] | [address] | | | | | [place] [address] | | | | | | [phone] | | | +--------+ + + + [...]
--- OUTSIDE RECORDS SUMMARY | ~2019-04-14 | XMS | Encounter Summary ---
Demographics + + + | Address | [address] | | | [place] [address] | + + + | Home Phone [...] | [facility] | | | and [place] [...] Providers + +------+ + | Care Director Medical Science Name | Role | Phone | + +------+ + PCP | Unavailable | + +------+ + Encounter Details +--------+ + + + + | Date | Type | Department | Care Team | Description | +--------+ + + + + | 08/16/ | Hospital | [facility] | | | | 2006 - | Encounter | MED CTR CANCER | | | | | | CENTER [address] | | | | 08/26/ | | [place] | | | | 2006 | | [address] | | | | | | [phone] | | | +--------+ + + + [...]
--- OUTSIDE RECORDS SUMMARY | ~2019-04-14 | XMS | Encounter Summary ---
Demographics + + + | Address | [address] | | | [place] [address] | + + + | Home Phone | | + + + | Preferred Language | Unknown | + + + | Marital Status | Single | + + + | Confucianist Affiliation | Unknown | + + + | Race | Unknown | + + + | Ethnic Group | Unknown | + + + Author + + + | Author | [facility] | | | and [place] | + + + | Organization | [facility] | | | [...] Team Providers + +------+ + | Care Spotter Name | Role | Phone | + +------+ + PCP | Unavailable | + +------+ + Encounter Details +--------+ + + + + | Date | Type | Department | Care Team | Description | +--------+ + + + + | 08/11/ | Hospital | [facility] | Jordan Escalera MD | | | 1995 | Encounter | MED CTR GENERIC OP | [address] | | | | | CONV DEPT [address] | [address] [place] | | | | | [place], | [address] | | | | | [place] [address] | | | | | | [phone] | | | +--------+ + + + [...]
--- OUTSIDE RECORDS SUMMARY | ~2019-04-14 | XMS | Encounter Summary ---
Demographics + + + | Address | [address] | | | [place] [address] | + + + | Home Phone [...] + + + | Author | [facility] | | | and [place] | + + + | Organization | [facility] | | | and [place] [...] Team Providers + +------+ + | Care Dedicated Truck Driver Name | Role | Phone | + +------+ + PCP | Unavailable | + +------+ + Encounter Details +--------+ + + + + | Date | Type | Department | Care Team | Description | +--------+ + + + + | 11/03/ | Hospital | [facility] | | | | 2001 - | Encounter | MED CTR CANCER | | | | | | CENTER [address] | | | | 02/01/ | | [place] | | | | 2001 | | [address] | | | | | | [phone] | | | +--------+ + + + [...]
--- OUTSIDE RECORDS SUMMARY | ~2019-04-14 | XMS | Encounter Summary ---
Demographics + + + | Address | [address] | | | [place] [address] | + + + | Home Phone | | + + + | Preferred Language | Unknown | + + + | Marital Status | Single | + + + | Buddhism Affiliation | Unknown | + + + | Race | Unknown | + + + | Ethnic Group | Unknown | + + + Author + + + | Author | [facility] | | | and [place] | + + + | Organization | [facility] | [...] Providers + +------+ + | Care Sales Promotion Manager Name | Role | Phone | [...] | | | ONCOLOGY CLINIC [address] | [facility] [place] | | | | | [address] | [address] | | | | | [place] [address] | | | | | | [phone] | | | +--------+ + + + [...]
--- OUTSIDE RECORDS SUMMARY | ~2019-04-14 | XMS | Encounter Summary ---
Demographics + + + | Address | [address] | | | [place] [address] | + + + | Home Phone | | + + + | Preferred Language | Unknown | + + + | Marital Status | Single | + + + | Hindu Affiliation | Unknown | + + + | Race | Unknown | + + + | Ethnic Group | Unknown | + + + Author + + + | Author | [facility] | | | and [place] | + + + | Organization | [facility] | | | and [place] [...] Team Providers + +------+ + | Care Wet Chemistry Analyst Name | Role | Phone | + +------+ + PCP | Unavailable | + +------+ + Encounter Details +--------+ + + + + | Date | Type | Department | Care Team | Description | +--------+ + + + + | 01/22/ | Hospital | [facility] | Peter Nunez, | | | 2000 | Encounter | MED CTR MP INTRA OP | [address] [facility] [facility] | | | | | [address] | [place] | | | | | [place] | [address] | | | | | [address] | | | | | | [phone] | | | +--------+ + + + [...]
--- OUTSIDE RECORDS SUMMARY | ~2019-04-14 | XMS | Encounter Summary ---
Demographics + + + | Address | [address] | | | [place] [address] | + + + | Home Phone [...] + | Organization | [facility] [...] Team Providers + +------+ + | Care Decision Science Analyst Name | Role | Phone | + +------+ + PCP | Unavailable | + +------+ + Encounter Details +--------+ + + + + | Date | Type | Department | Care Team | Description | +--------+ + + + + | 08/14/ | Hospital | [facility] | | | | 2005 - | Encounter | MED CTR CANCER | | | | | | CENTER [address] | | | | 11/12/ | | [place] | | | | 2005 | | [address] | | | | | | [phone] | | | +--------+ + + + [...]
--- OUTSIDE RECORDS SUMMARY | ~2019-04-14 | XMS | Encounter Summary ---
Demographics + + + | Address | [address] | | | [place] [address] | + + + | Home Phone [...] Organization | [facility] | | | and [...] Team Providers + +------+ + | Care Arranger Assembler Name | Role | Phone | + +------+ + | Andrey Davenport MD | PCP | | + +------+ + Encounter Details +--------+ + + + + | Date | Type | Department | Care Team | Description | +--------+ + + + + | 07/04/ | Hospital | [facility] | Marilyn Monroy | | | 2019 | Encounter | MED CTR RADIATION | MD Anupama [address] | | | | | ONCOLOGY [address] | [address] [place] | | | | | [place], | [address] | | | | | [place] [address] | | | | | | [phone] | | | +--------+ + + + [...]
--- OUTSIDE RECORDS SUMMARY | ~2019-04-14 | XMS | Clinical Summary ---
Demographics + + + | Address | [address] | | | [place] [address] | + + + | Home Phone [...] Organization | [facility] | | | and [...] Team Providers + +------+ + | Care Mobile Electronics Installer Name | Role | Phone | + [...] Overview: Added automatically from request for surgery [id number] | + + + + + | S/P bilateral inguinal hernia repair | 12/01/2018 | + + + | Bilateral inguinal hernia | 09/04/2018 | + + + + + | Overview: Added automatically from request for surgery [id number] | + + + + + | [...] | + + + + | INFLUENZA, [id number], | 04/16/2009 | | | INACTIVATED | | | + + + + | INFLUENZA, [id number], | 04/16/2009 | | | UNSPECIFIED | [...] + +--------+ | MEDICARE | MEDICA | [id number] | 10/27/18 | [phone] | | Medica | | | RE | | 96-Pre | 5 | | re | | | PART A | | sent | | | | | | AND B | | | | | | + +--------+ +--------+ + +--------+ | MODA | MODA | [id number] | 04/29/19 | [phone] | [address] | Indemn | | | HEALTH | | 17-Pre | 9 | [address] | ity | | | MDCR | | sent | | [place], | | | | [place] | | | | [place] [address] | | + +--------+ +--------+ + +--------+ [...] | 1931 | [phone] | [place] [address] | | | [place] | | | 8 (Home) | | + +--------+ +--------+ + + Advance Directives + + + + + | Type | Date Recorded | Patient | Explanation | | | | Flash Welding Machine Operator | | + + + + + | Power of | | | | | Overhead Cleaner | | | | + + + + + | Advance | | | | | Directive | | | | + + + + +
--- OUTSIDE RECORDS SUMMARY | ~2019-04-14 | XMS | Encounter Summary ---
Demographics + + + | Address | [address] | | | [place] [address] | + + + | Home Phone [...] + + + | Author | [facility] | | | and [place] | + + + | Organization | [facility] | | | [...] Team Providers + +------+ + | Care Coil Rewind Machine Operator Name | Role | Phone | + +------+ + PCP | Unavailable | + +------+ + Encounter Details +--------+ + + + + | Date | Type | Department | Care Team | Description | +--------+ + + + + | 01/28/ | Hospital | [facility] | Peter Nunez, | | | 2000 | Encounter | MED CTR XRAY [address] | MD Hernandez [facility] | | | | | [place] | [place] | | | | | [place] [address] | [id number] | | | | | [phone] | | | +--------+ + + + [...]
--- OUTSIDE RECORDS SUMMARY | ~2019-04-14 | XMS | Encounter Summary ---
Demographics + + + | Address | [address] | | | [place] [address] | + + + | Home Phone [...] + | Organization | [facility] | | | [...] Team Providers + +------+ + | Care Inductor Tester Name | Role | Phone | + +------+ + PCP | Unavailable | + +------+ + Encounter Details +--------+ + + + + | Date | Type | Department | Care Team | Description | +--------+ + + + + | 08/15/ | Hospital | [facility] | | | | 2004 - | Encounter | MED CTR GENERIC OP | | | | | | CONV DEPT [address] | | | | 11/13/ | | [place], | | | | 2004 | | [place] [address] | | | | | | [phone] | | | +--------+ + + + [...]
--- OUTSIDE RECORDS SUMMARY | ~2019-04-14 | XMS | Encounter Summary ---
Demographics + + + | Address | [address] | | | [place] [address] | + + + | Home Phone [...] | Organization | [facility] | | | and [...] Providers + +------+ + | Care Inspector Firearms Name | Role | Phone | + +------+ + PCP | Unavailable | + +------+ + Encounter Details +--------+ + + + + | Date | Type | Department | Care Team | Description | +--------+ + + + + | 08/14/ | Hospital | [facility] | | | | 2005 - | Encounter | MED CTR CANCER | | | | | | CENTER [address] | | | | 11/12/ | | [place] | | | | 2005 | | [address] | | | | | | [phone] | | | +--------+ + + + [...]
--- OUTSIDE RECORDS SUMMARY | ~2019-04-14 | XMS | Encounter Summary ---
Demographics + + + | Address | [address] | | | [place] [address] | + + + | Home Phone | | + + + | Preferred Language | Unknown | + + + | Marital Status | Single | + + + | Nondenominational Affiliation | Unknown | + + + | Race | Unknown | + + + | Ethnic Group | Unknown | + + + Author + + + | Author | [facility] | | | and [place] | + + + | Organization | [facility] | | | [...] Team Providers + +------+ + | Care Patient Accounts Clerk Name | Role | Phone [...] + + | 07/24/ | Hospital | [facility] | Marilyn Monroy | Diffuse large B-cell | | 2019 | Encounter | MED CTR RADIATION | MD Anupama [address] | lymphoma of | | | | ONCOLOGY CLINIC [address] | [place], [place] | extranodal site | | | | [address] [place] | [address] | excluding spleen and | | | | [place] [address] | | other solid organs | | | | [phone] | | (HCC) (Primary Dx) | +--------+ [...] He is doing very well with treatment. [facility] fatigue report. No skin irritation. Toxicities [...]
--- OUTSIDE RECORDS SUMMARY | ~2019-04-14 | XMS | Encounter Summary ---
Demographics + + + | Address | [address] | | | [place] [address] | + + + | Home Phone [...] + | Organization | [facility] | [...] Team Providers + +------+ + | Care Inclusion Manager Name | Role | Phone | + +------+ + PCP | Unavailable | + +------+ + Encounter Details +--------+ + + + + | Date | Type | Department | Care Team | Description | +--------+ + + + + | 04/13/ | Hospital | [facility] | | | | 2007 - | Encounter | MED CTR CANCER | | | | | | CENTER [address] | | | | 04/28/ | | [place] | | | | 2007 | | [address] | | | | | | [phone] | | | +--------+ + + + [...]
--- OUTSIDE RECORDS SUMMARY | ~2019-04-14 | XMS | Encounter Summary ---
Demographics + + + | Address | [address] | | | [place] [address] | + + + | Home Phone [...] | Organization | [facility] | | | and [place] | [...] Team Providers + +------+ + | Care Lawn Sprinkler Installer Name | Role | Phone | + +------+ + PCP | Unavailable | + +------+ + Encounter Details +--------+ + + + + | Date | Type | Department | Care Team | Description | +--------+ + + + + | 11/11/ | Hospital | [facility] | | | | 2000 | Encounter | MED CTR XRAY [address] | | | | | | [place] | | | | | | [place] [address] | | | | | | [phone] | | | +--------+ + + + [...]
--- OUTSIDE RECORDS SUMMARY | ~2019-04-14 | XMS | Encounter Summary ---
Demographics + + + | Address | [address] | | | [place] [address] | + + + | Home Phone [...] | [facility] | | | and [...] Team Providers + +------+ + | Care Laborer Ammunition Assembly Name | Role | Phone | + +------+ + | Andrey Davenport MD | PCP | | + +------+ + Encounter Details +--------+ + + + + | Date | Type | Department | Care Team | Description | +--------+ + + + + | 07/04/ | Hospital | [facility] | Marilyn Monroy | | | 2019 | Encounter | MED CTR RADIATION | MD Anupama [address] | | | | | ONCOLOGY [address] | [place] | | | | | [place], | [address] | | | | | [place] [address] | | | | | | [phone] | | | +--------+ + + + [...]
--- OUTSIDE RECORDS SUMMARY | ~2019-04-14 | XMS | Encounter Summary ---
Demographics + + + | Address | [address] | | | [place] [address] | + + + | Home Phone | | + + + | Preferred Language | Unknown | + + + | Marital Status | Single | + + + | Church Affiliation | Unknown | + + + | Race | Unknown | + + + | Ethnic Group | Unknown | + + + Author + + + | Author | [facility] | | | and [place] | + + + | Organization | [facility] | | | and [...] Team Providers + +------+ + | Care Contemporary Or Modern Dancer Name | Role | Phone | + +------+ + PCP | Unavailable | + +------+ + Encounter Details +--------+ + + + + | Date | Type | Department | Care Team | Description | +--------+ + + + + | 10/06/ | Hospital | [facility] | Jordan Escalera MD | | | 2001 | Encounter | MED CTR GENERIC OP | [address] | | | | | CONV DEPT [address] | [address] [place] | | | | | [place], | [id number] | | | | | [place] [address] | | | | | | [phone] | | | +--------+ + + + [...]
--- OUTSIDE RECORDS SUMMARY | ~2019-04-14 | XMS | Encounter Summary ---
Demographics + + + | Address | [address] | | | [place] [address] | + + + | Home Phone [...] + | Organization | [facility] | [...] Team Providers + +------+ + | Care An/Syq 13 Nav/C2 Operator Name | Role | Phone | + +------+ + PCP | Unavailable | + +------+ + Encounter Details +--------+ + + + + | Date | Type | Department | Care Team | Description | +--------+ + + + + | 08/11/ | Hospital | [facility] | | | | 2003 - | Encounter | MED CTR CANCER | | | | | | CENTER [address] | | | | 11/17/ | | [place] | | | | 2003 | | [address] | | | | | | [phone] | | | +--------+ + + + [...]
--- OUTSIDE RECORDS SUMMARY | ~2019-04-14 | XMS | Encounter Summary ---
Demographics + + + | Address | [address] | | | [place] [address] | + + + | Home Phone [...] Organization | [facility] | | | and [place] [...] Team Providers + +------+ + | Care Loom Repairer Name | Role | Phone | [...] [address] | | | | | [phone] | [place] [address] | | +--------+ + + + + [...]
--- OUTSIDE RECORDS SUMMARY | ~2019-04-14 | XMS | Encounter Summary ---
Demographics + + + | Address | [address] | | | [place] [address] | + + + | Home Phone [...] Organization | [facility] | | | and [...] Team Providers + +------+ + | Care Judge'S Clerk Name | Role | Phone | [...] [address] | | | | | [phone] | [place] [address] | | +--------+ + + + + [...]
--- OUTSIDE RECORDS SUMMARY | ~2019-04-14 | XMS | Encounter Summary ---
Demographics + + + | Address | [address] | | | [place] [address] | + + + | Home Phone [...] | Organization | [facility] | [...] Team Providers + +------+ + | Care Micropaleontologist Name | Role | Phone | + [...] | | ONCOLOGY CLINIC [address] | [facility] [place] | | | | | [address] [place] | [address] | | | | | [place] [address] | | | | | | [phone] | | | +--------+ + + + [...]
--- OUTSIDE RECORDS SUMMARY | ~2019-04-14 | XMS | Encounter Summary ---
Demographics + + + | Address | [address] | | | [place] [address] | + + + | Home Phone [...] + + + | Author | [facility] | | | and [place] | + + + | Organization | [facility] | [...] Team Providers + +------+ + | Care Materials Development Engineer Name | Role | Phone | + +------+ + PCP | Unavailable | + +------+ + Encounter Details +--------+ + + + + | Date | Type | Department | Care Team | Description | +--------+ + + + + | 10/06/ | Hospital | [facility] | Jordan Escalera MD | | | 2001 | Encounter | MED CTR GENERIC OP | [address] | | | | | CONV DEPT [address] | [address] [place] | | | | | [place], | [id number] | | | | | [place] [address] | | | | | | [phone] | | | +--------+ + + + [...]
--- OUTSIDE RECORDS SUMMARY | ~2019-04-14 | XMS | Encounter Summary ---
Demographics + + + | Address | [address] | | | [place] [address] | + + + | Home Phone | | + + + | Preferred Language | Unknown | + + + | Marital Status | Single | + + + | Yazidism Affiliation | Unknown | + + + | Race | Unknown | + + + | Ethnic Group | Unknown | + + + Author + + + | Author | [facility] | | | and [place] | + + + | Organization | [facility] | | | and [place] [...] Team Providers + +------+ + | Care Production Control Manager Name | Role | Phone | [...] | | | | | non-Hodgkin | [place], [place] | [place] [address] | | | | | lymphoma, | [address] | Phone: | | | | | unspecified | Phone: | [phone] | | | | | body region | [phone] | Fax: | | | | | (HCC) | Fax: | [phone] | | | | | | [phone] | | +--------+ + + + + [...] | | unspecified | [place], | [place], | | | | | site (HCC) | [address] | [place] [address] | | | | | Procedures | [place], | Phone: | | | | | [place] OFFICE | [place] [address] | [phone] | | | | | OUTPATIENT | | Fax: | | | | | NEW 45 | | [phone] | | | | | MINUTES | | | + +--------+ + + + + Encounter Details +--------+---------+ + + + | Date | Type | Department | Care Team | Description | +--------+---------+ + + + | 12/25/ | Office | [facility] | Ciara Hardin MD | Other specified type | | 2019 | Visit | SURGERY [address] | [address] [place] | of non-Hodgkin | | | | [place], [place] | [place]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 Occasi onal wrong-word or [...]
[~2019-04-14 09:37] MED LIST changes: +SENNA8.6 MG PO
--- NOTE | 2019-04-14 10:30 | NUR ---
Patient arrives to unit via direct admit. Patient able to ambulate independently in room. IV started, vitals taken. Assessment complete. Patient ambulated to toilet independently, voiding QS. Returned to bed independently. Family in room. Patient coughing productive yellow sputum, and wheezing. Dr. Godfrey in room to assess the patient. Orders acknowledged. RT to perform breathing treatment prior to patient leaving floor for imaging. Patient oriented to room. Denies further needs at this time, call light within reach.
[2019-04-14] MEDS ORDERED: SIMVASTATIN40 MG PO (11:43)
--- NOTE | 2019-04-14 12:00 | NUR ---
Patient sitting up in bed, alert and awake. RT in room to administer breathing tx. Medications given, no difficulty. Patient states "neb treatment really helped." Denies further needs at this time, call light within reach.
--- NOTE | 2019-04-14 13:15 | NUR ---
MET WITH PTS' DAUGHTER CICI AND OUTSIDE . PT WAS A DIRECT ADMIT FROM DR PINEDA POSITIVE FOR FLU. CICI MENTIONEDD THAT HE HAS NOT BEEN FEELING WELL FOR THE LAST 10 DAYS OR SO AND HAS TAKEN HIM TO THE DR. GAVE ENCOURAGEMENT, SHE SEEMED RELIVED SOMEWHAT THAT HE IS NOW HERE. WILL FOLLOW NEEDED
--- NOTE | 2019-04-14 13:56 | NUR ---
PATIENT RESTING IN BED. RN IN ROOM. VITAL SIGNS AND I&O DONE. CALL LIGHT WITHIN REACH. NO OTHER NEEDS AT THIS TIME
--- NOTE | 2019-04-14 14:47 | NUR ---
Patient sitting up in bed watching tv and eating lunch. Denies needs at this time, call light within reach.
--- NOTE | 2019-04-14 15:34 | NUR ---
In and spoke with Sotero and his daughter, Vicki. Pt lives alone and completes all household tasks, ADLS without assist. Drives, DME is nebulizer. [facility] the [place] and [facility]. Denies falls. He is retired from the [employer] where he worked 35 years. Has not felt well for over two weeks, which he thought was due to his asthma.
--- NOTE | 2019-04-14 16:23 | NUR ---
Patient sitting up in bed with family in room. NS running at 75 mls/hr. Assessment complete. Inspiratory/expiratory wheezes auscultated in upper lobes, rhonchi noted in bases. Patient reports "breathing feels easier" after breathing treatment 30 minutes prior. Water refreshed, denies further needs at this time. Call light within reach.
--- NOTE | 2019-04-14 17:35 | NUR ---
PATIENT RESTING IN BED. VISITOR IN ROOM. VITAL SIGNS AND I&O DONE. CALL LIGHT WITHIN REACH. NO OTHER NEEDS AT THIS TIME
--- NOTE | 2019-04-14 20:05 | NUR ---
IN ROOM D/T BEEPING IV PUMP. FLUSHED PT'S IV AND IT IS INFUSING FINE NOW. COMPLETED ASSESSMENT AND PT DENIES FURTHER NEEDS AT THIS TIME. CALL LIGHT IS CLOSE.
--- NOTE | 2019-04-14 21:38 | NUR ---
IN ROOM TO ADMINISTER MEDICATIONS. PT REPORTS HE IS FEELING MUCH BETTER AND IS HOPING TO GO HOME TOMORROW. HE DENIES SOB AND PAIN. HE IS VOIDING ALOT OF CLEAR YELLOW URINE. HE ALSO DENIES NAUSEA. HE HAS INHAILER IN HIS ROOM BUT IS AWARE NOT TO USE IT AND TO CALL US IF HE NEEDS A BREATHING TRT. HE DENIES NEEDS AT THIS TIME AND CALL LIGHT IS CLOSE.
--- NOTE | 2019-04-14 23:25 | NUR ---
PT IS RESTING WITH EYES CLOSED, RR IS EVEN AND NONLABORED. IV IS INFUSING FINE AND CALL LIGHT IS CLOSE.
--- NOTE | 2019-04-15 01:18 | NUR ---
PT IS RESTING WITH EYES CLOSED, RR IS EVEN AND NONLABORED. CALL LIGHT IS CLOSE AND IV IS INFUSING FINE.
--- NOTE | 2019-04-15 02:21 | NUR ---
IN ROOM TO GET VS &I&O'S WITH SINTA ALSO TO ASSESS PT. HE DENIES PAIN AND SOB. PT IS DOING FINE ON RA AND HAS A COUGH. PT DENIES NEEDS AT THIS TIME. HIS IV FLUIDS ARE GETTING CLOSE TO COMPLETION.
--- NOTE | 2019-04-15 03:10 | NUR ---
PT CALLED D/T BEEPING IV. BAG IS COMPLETE AND HIS IV IS NOW SL. PT DENIES FURTHER NEEDS, CALL LIGHT IS WITHIN REACH.
--- NOTE | 2019-04-15 05:06 | NUR ---
PT IS RESTING WITH EYES CLOSED, RR IS EVEN AND NONLABORED. CALL LIGHT IS CLOSE.
--- NOTE | 2019-04-15 05:37 | NUR ---
IN ROOM TO ADMINISTER SOLUMEDROL. PT IS USING I.S. AT THIS TIME AND ACAPELLA. HE DENIES FURTHER NEEDS AND CALL LIGHT IS CLOSE.
--- NOTE | 2019-04-15 07:17 | NUR ---
PT RESTING IN SEMIFOWLERS POSITON IN BED. PT ALERT, ORIENTED AND DENIES NEEDS OR CONCERNS AND APPEARS TO BE IN NO ACUTE DISTRESS. CALL LIGHT AND H2O IN REACH. PT APPEARS TO BE SLEEPING COMFORTABLY.
--- NOTE | 2019-04-15 07:43 | NUR ---
PATIENTS BOARD UPDATED, PATIENT ASKED FOR COFFEE, PATIENT GOT A PHONE CALL
--- NOTE | 2019-04-15 09:12 | NUR ---
PT ALERT AND ORIENTED. CALL LIGHT AND H2O IN REACH. NO NEEDS OR CONCERNS VOICED. PT DENIES PAIN, SOB OR NAUSEA. ASSESSMENT COMPLETED. AM MEDS ADMINISTERED.
--- NOTE | 2019-04-15 11:29 | NUR ---
PT OUT AMBULATING IN [place] WITH BERNICE ART.VISITED WITH [place], SHE EXPRESSED THANKS THAT PT DID NOT HAVE PNEUMONIA. HER FAMILY HAS HAD MORE THAN THEIR OF LOSS AND GRIEF OVER THE LAST YEAR OR SO. PT RETURNED, HAD PLEASANT VISIT, HE THANKED ME FOR VISITING. WILL FOLLOW NEEDED
--- NOTE | 2019-04-15 11:30 | NUR ---
PT UP AMBULATING WITH SBA IN [place]. PT TOLERATED 1 LAP AROUND [place] WITH STEADY GAIT. PT BACK TO ROOM. CALL LIGHT AND H2O IN REACH. PT DENIES FURTHER NEEDS OR CONCERNS.
--- NOTE | 2019-04-15 11:50 | NUR ---
Pt resting, denies need. States better today, slept well.
--- NOTE | 2019-04-15 14:25 | NUR ---
PT RESTING SUPINE IN BED ALERT AND ORIENTED. CALL LIGHT AND H2O IN REACH. PT DENIES NEEDS OR CONCERNS ASSESSMENT COMPLETED.
--- NOTE | 2019-04-15 16:04 | NUR ---
VISITED WITH PT REGARDING HIS DX AND MEDS, PT ABLE TO TELL ME ABOUT HIS MEDS AND WAS ABLE TO DISCUSS REASON FOR MEDS, SIDE EFFECTS AND HOW TO TAKE THEM. UNDERSTANDS HIS DX AND ABLE TO TELL ME ABOUT IT. DENIED ISSUESS AT THIS TIME. WILL FOLLOW WITH HIM TOMORROW.
--- NOTE | 2019-04-15 18:54 | NUR ---
PT REPORTS PAIN OF 7/10 TO ABDOMEN. PT STATES THIS IS TOLERABLE BUT FEELS IT MAY BE GETTING WORSE. PRN IV OFIRMEV ADMINISTERED PER PT REQUEST. CALL LIGHT AND H2O IN REACH. NO FURTHER NEEDS OR CONCERNS VOICED. PT REPORTS THAT HE HAS PASSED SOME FLATULANCE AND THAT HE IS NO LONGER NAUSEATED.
--- NOTE | 2019-04-15 19:25 | NUR ---
IN ROOM FOR REPORT, PT IS AWAKE IN BED. HE DENIES NEEDS AT THIS TIME. CALL LIGHT IS CLOSE.
--- NOTE | 2019-04-15 21:56 | NUR ---
IN ROOM TO ASSESS PT AND ADMINISTER MEDICATIONS. PT DENIES ANY SOB AND PAIN. HE IS EXCITED TO LEAVE TOMORROW AND SAID HE WOULD LIKE A SHOWER IN THE MORNING. HE IS 90% ON RA. REMINDED PT TO COUGH AND DEEP BREATHE. PT DENIES FURTHER NEEDS AND CALL LIGHT IS CLOSE.
--- NOTE | 2019-04-15 22:32 | NUR ---
IN ROOM TO ASSESS PT AND ADMINISTER MEDICATIONS. HE REPORTS SPUTUM PRODUCTION HAS INCREASED BUT DENIES SOB AND PAIN. HE IS VOIDING FINE AND APPETITE IS GOOD. PT DENIES FURTHER NEEDS AT THIS TIME. CALL LIGHT IS CLOSE.
--- NOTE | 2019-04-15 23:23 | NUR ---
PT IS RESTING WITH EYES CLOSED, RR IS EVEN AND NONLABORED. CALL LIGHT IS WITHIN REACH.
--- NOTE | 2019-04-16 00:23 | NUR ---
PT CALLED TO HAVE HIS URINE EMPTIED, HE DENIES FURTHER NEEDS AT THIS TIME. CALL LIGHT IS CLOSE.
--- NOTE | 2019-04-16 02:27 | NUR ---
PT IS RESTING WITH EYES CLOSED. RR IS EVEN AND NONLABORED. CALL LIGHT IS CLOSE.
--- NOTE | 2019-04-16 03:50 | NUR ---
PT CALLED REQUESTING A NEB TRT. R.T. CAME AND ADMINISTERED IT. PT REPORTS BREATHING IS BETTER NOW AND WAS A LITTLE WHEEZY PRIOR. HE DENIES FURTHER NEEDS AT THIS TIME. CALL LIGHT IS CLOSE.
--- NOTE | 2019-04-16 06:10 | NUR ---
PT IS AWAKE IN BED, HE DENIES NEEDS AT THIS TIME. CALL LIGHT IS CLOSE.
--- NOTE | 2019-04-16 07:02 | NUR ---
REPORT RECEIVED FROM BERNICE PENALOZA. PT RESTING IN BED. PT REPORTS FEELING "BETTER" THIS MORNING. RESPIRATIONS EVEN AND UNLABORED. PT DENIES REQUESTS OR COMPLAINTS AT THIS TIME. CALL LIGHT WITHIN REACH.
--- NOTE | 2019-04-16 07:50 | NUR ---
MORNING ASSESSMENT AND MEDICAITON DUE. PT RESTING IN BED. NO COUGH NOTED. LUNG SOUNDS CLEAR. PT REPORTS FEELSING "MUCH BETTER" AND IS ANTICIPATING DISCHARGE THIS SHIFT. PT DEMONSTRATES USE OF CORNET AND I.S. REACHING 2500. PT REPORTS HE USES INHALERS AT HOME AND VERBALIZES UNDERSTANDING OF CORRECT USE. VITALS TAKEN, WNL. MEDICAITONS GIVEN. PT ANTICIPATING BREAKFAST. NO ADDITIONAL REQUESTS OR COMPLAINTS. CALL LIGHT WITHIN REACH.
--- NOTE | 2019-04-16 10:03 | NUR ---
THIS RN TO ROOM TO CHECK ON PT. PT FINSHED WITH BREAKFAST. NO ADDITIONAL REQUESTS OR COMPLAINTS. PT ANTICIPATING DISCHARGE LATER THIS MORNING. CALL LIGHT WITHIN REACH.
--- NOTE | 2019-04-16 11:03 | NUR ---
MD TO ROOM FOR ROUNDS. DISCHARGE PLANNED. PT UP TO DRESS SELF WITH ASSISTANCE FROM . PT STEADY ON FEET. DENIES PAIN AND SOB. NO ADDITIONAL REQUESTS OR COMPLAINTS AT THIS TIME.
[2019-04-16] MEDS ORDERED: OSELTAMIVIR PHO75 MG PO (11:04)
[2019-04-16] MEDS ORDERED: LISINOPRIL20 MG PO (11:05)
[2019-04-16] MEDS ORDERED: PREDNISONE20 MG PO (11:10)
[2019-04-16] MEDS ORDERED: PREDNISONE10 MG PO (11:11)
[2019-04-16] MEDS ORDERED: PREDNISONE5 MG PO (11:12)
--- NOTE | 2019-04-16 11:20 | NUR ---
PT READY FOR DISCHARGE, DRESSED AND VISITING WITH . VITALS TAKEN. PIV DC'D PER PROTOCOL, GADAVINE AND COBMIKE APPLIED. DISCHRAGE INSTRUCTIONS REVIEWED WITH PT. PT VERBALIZES UNDERSTANDING OF MEDICATIONS, FOLLOW UP, AND HOME CARE AND STATES HIS QUESTIONS HAVE BEEN ANSWERED. PHARMACY CALLED TO REVIEW MEDICATIONS WITH PT. AWAITING PHARMACIST ARRIVAL. NO ADDITIONAL REQUESTS OR COMPLAINTS AT THIS TIME.
--- NOTE | 2019-04-16 11:40 | NUR ---
PT FINISHED VISITING WITH PHARMACIST. PT VERBALIZES UNDERSTNDING OF ALL MEDICATIONS. NO ADDITIONAL REQUESTS, COMPLINTS, OR QUESTIONS. PT WHEELED FROM MED/SURG UNIT. ALL BELONGINGS RETURNED.
--- NOTE | 2019-04-16 11:51 | NUR ---
PT DRESSED AND READY FOR DC. PT IS STEADY ON HIS FEET, THANKFUL FOR THE CARE HE RECEIVED AT [facility]. PT ADMITTED HE FEELS SO MUCH BETTER. GAVE BLESSING, PT THANKED ME. WILL FOLLOW NEEDED
== END 2019-04-16 11:45 | disposition home or self-care (01) ==
LOC: MS 09:37 → EDSTATUS 11:27 → MS 11:40
PROVIDERS: ADMIT Internal Medicine
DX: J10.1 Influenza due to other identified influenza virus with other respiratory manifestations (principal); I10 Essential (primary) hypertension; J44.1 Chronic obstructive pulmonary disease with (acute) exacerbation; K21.9 Gastro-esophageal reflux disease without esophagitis; E78.5 Hyperlipidemia, unspecified; E87.1 Hypo-osmolality and hyponatremia; Z66 Do not resuscitate; Z85.46 Personal history of malignant neoplasm of prostate; Z85.72 Personal history of non-Hodgkin lymphomas; Z88.8 Allergy status to other drugs, medicaments and biological substances; Z88.1 Allergy status to other antibiotic agents; Z79.1 Long term (current) use of non-steroidal anti-inflammatories (NSAID); Z79.82 Long term (current) use of aspirin; Z79.899 Other long term (current) drug therapy
CPT/HCPCS: 36415; 71046; 80048; 80053; 83735; 85025; 87502; 94640; 94667; 94668; 96374; 96376; G0378; G0379; J2930; J7030

== ENCOUNTER 2019-07-08 03:22 | Emergency (ER) | payer MEDICARE, OTHER ==
[~2019-07-08] VITALS: Ht 180.3 cm; Wt 79.4 kg
[~2019-07-08 03:22] MED LIST changes: +LISINOPRIL20 MG PO; +OSELTAMIVIR PHO75 MG PO; +PREDNISONE10 MG PO; +PREDNISONE5 MG PO
[2019-07-08] MEDS ORDERED: DOXYCYCLINE HY100 MG PO (04:06)
[2019-07-08] MEDS ORDERED: IPRAT-ALBUT 0.5-3 ML INH (04:06)
[2019-07-08] MEDS ORDERED: PREDNISONE20 MG PO (04:06)
--- NOTE | 2019-07-08 17:12 | EKG ---
[facility] [address] [place] [address] Signed Normal sinus rhythm Left axis deviation Low voltage QRS Abnormal ECG When compared with ECG of 04-MAR-2018 08:14, No significant change was found Confirmed by SHANE BLAIR MD ([id number]) on 07/08/2019 5:12:30 PM Electronically Signed By: SHANE BLAIR MD 07/08/19 1712 PATIENT NAME: SEBLE LOPEZ Electrocardiogram DATE OF : [birth year] PHYSICIAN: SHANE BLAIR MD REPORT #: [id number] REPORT IS CONFIDENTIAL AND NOT TO BE RELEASED WITHOUT AUTHORIZATION
== END 2019-07-08 04:45 | disposition home or self-care (01) ==
LOC: ED 03:22
DX: J45.909 Unspecified asthma, uncomplicated (principal); I10 Essential (primary) hypertension; Z87.891 Personal history of nicotine dependence; Z79.899 Other long term (current) drug therapy; Z79.82 Long term (current) use of aspirin
CPT/HCPCS: 71045; 80053; 83735; 84484; 85025; 93005; 93010; 94640; 96374; 99285-25; J2930

== ENCOUNTER 2019-10-20 13:23 | Inpatient (IN) | payer MEDICARE, OTHER ==
[~2019-10-20] VITALS: Ht 180.3 cm; Wt 79.4 kg
--- OUTSIDE RECORDS SUMMARY | ~2019-10-20 | XMS | Encounter Summary ---
Demographics + + + | Address | [address] | | | [place] [address] | + + + | Home Phone | | + + + | Preferred Language | Unknown | + + + | Marital Status | Single | + + + | Buddhist Affiliation | Unknown | + + + | Race | Unknown | + + + | Ethnic Group | Unknown | + + + Author + + + | Author | [facility] | | | and [place] | + + + | Organization | [facility] | | | and [place] [...] Team Providers + +------+ + | Care Student Affairs Vice President Name | Role | Phone | + +------+ + PCP | Unavailable | + +------+ + Encounter Details +--------+ + + + + | Date | Type | Department | Care Team | Description | +--------+ + + + + | 11/04/ | Hospital | [facility] | Jordan Escalera MD | | | 1997 | Encounter | MED CTR GENERIC OP | [address] | | | | | CONV DEPT [address] | [address] [place] | | | | | [place], | [id number] | | | | | [place] [address] | | | | | | [phone] | | | +--------+ + + + [...] on file | | + + + documented as of this encounter Plan of Treatment Not on filedocumented as of this encounter Visit Diagnoses Not on filedocumented in this encounter"
--- OUTSIDE RECORDS SUMMARY | ~2019-10-20 | XMS | Encounter Summary ---
Demographics + + + | Address | [address] | | | [place] [address] | + + + | Home Phone | | + + + | Preferred Language | Unknown | + + + | Marital Status | Single | + + + | Restorationism Affiliation | Unknown | + + + | Race | Unknown | + + + | Ethnic Group | Unknown | + + + Author + + + | Author | [facility] | | | and [place] | + + + | Organization | [facility] | | | and [...] Team Providers + +------+ + | Care Medical Records Clerk Name | Role | Phone | + +------+ + PCP | Unavailable | + +------+ + Encounter Details +--------+ + + + + | Date | Type | Department | Care Team | Description | +--------+ + + + + | 11/20/ | Hospital | [facility] | | | | 2000 - | Encounter | MED CTR CANCER | | | | | | CENTER [address] | | | | 04/07/ | | [place] | | | | 2000 | | [address] | | | | | | [phone] | | | +--------+ + + + [...]
--- OUTSIDE RECORDS SUMMARY | ~2019-10-20 | XMS | Encounter Summary ---
Demographics + + + | Address | [address] | | | [place] [address] | + + + | Home Phone | | + + + | Preferred Language | Unknown | + + + | Marital Status | Single | + + + | Scientology Affiliation | Unknown | + + + | Race | Unknown | + + + | Ethnic Group | Unknown | + + + Author + + + | Author | [facility] | | | and [place] | + + + | Organization | [facility] | | | and [...] Team Providers + +------+ + | Care Hollow Ware Maker Name | Role | Phone | + +------+ + PCP | Unavailable | + +------+ + Encounter Details +--------+ + + + + | Date | Type | Department | Care Team | Description | +--------+ + + + + | 08/16/ | Hospital | [facility] | | | | 2006 - | Encounter | MED CTR CANCER | | | | | | CENTER [address] | | | | 08/26/ | | [place] | | | | 2006 | | [address] | | | | | | [phone] | | | +--------+ + + + [...]
--- OUTSIDE RECORDS SUMMARY | ~2019-10-20 | XMS | Encounter Summary ---
Demographics + + + | Address | [address] | | | [place] [address] | + + + | Home Phone | | + + + | Preferred Language | Unknown | + + + | Marital Status | Single | + + + | Advent Affiliation | Unknown | + + + | Race | Unknown | + + + | Ethnic Group | Unknown | + + + Author + + + | Author | [facility] | | | and [place] | + + + | Organization | [facility] | | | and [place] [...] Team Providers + +------+ + | Care Radar Tester Name | Role | Phone | + +------+ + PCP | Unavailable | + +------+ + Encounter Details +--------+ + + + + | Date | Type | Department | Care Team | Description | +--------+ + + + + | 08/11/ | Hospital | [facility] | Jordan Escalera MD | | | 1995 | Encounter | MED CTR GENERIC OP | [address] | | | | | CONV DEPT [address] | [address] | | | | | [place], | [address] | | | | | [place] [address] | | | | | | [phone] | | | +--------+ + + + [...]
--- OUTSIDE RECORDS SUMMARY | ~2019-10-20 | XMS | Encounter Summary ---
Demographics + + + | Address | [address] | | | [place] [address] | + + + | Home Phone | | + + + | Preferred Language | Unknown | + + + | Marital Status | Single | + + + | Restorationism Affiliation | Unknown | + + + | Race | Unknown | + + + | Ethnic Group | Unknown | + + + Author + + + | Author | [facility] | | | and [place] | + + + | Organization | [facility] | | | and [...] Team Providers + +------+ + | Care Hydro Pneumatic Tester Name | Role | Phone | + +------+ + PCP | Unavailable | + +------+ + Encounter Details +--------+ + + + + | Date | Type | Department | Care Team | Description | +--------+ + + + + | 08/14/ | Hospital | [facility] | | | | 2005 - | Encounter | MED CTR CANCER | | | | | | CENTER [address] | | | | 11/12/ | | [place] | | | | 2005 | | [address] | | | | | | [phone] | | | +--------+ + + + [...]
--- OUTSIDE RECORDS SUMMARY | ~2019-10-20 | XMS | Encounter Summary ---
Demographics + + + | Address | [address] | | | [place] [address] | + + + | Home Phone | | + + + | Preferred Language | Unknown | + + + | Marital Status | Single | + + + | Rastafari Affiliation | Unknown | + + + | Race | Unknown | + + + | Ethnic Group | Unknown | + + + Author + + + | Author | [facility] | | | and [place] | + + + | Organization | [facility] | | | and [place] [...] Team Providers + +------+ + | Care Pricing Director Name | Role | Phone | + +------+ + PCP | Unavailable | + +------+ + Encounter Details +--------+ + + + + | Date | Type | Department | Care Team | Description | +--------+ + + + + | 04/13/ | Hospital | [facility] | | | | 2007 - | Encounter | MED CTR CANCER | | | | | | CENTER [address] | | | | 04/28/ | | [place] | | | | 2007 | | [address] | | | | | | [phone] | | | +--------+ + + + [...]
--- OUTSIDE RECORDS SUMMARY | ~2019-10-20 | XMS | Encounter Summary ---
Demographics + + + | Address | [address] | | | [place] [address] | + + + | Home Phone | | + + + | Preferred Language | Unknown | + + + | Marital Status | Single | + + + | Cheondoism Affiliation | Unknown | + + + | Race | Unknown | + + + | Ethnic Group | Unknown | + + + Author + + + | Author | [facility] | | | and [place] | + + + | Organization | [facility] | | | and [place] | [...] Team Providers + +------+ + | Care Letter Sorting Machine Operator Name | Role | Phone | + +------+ + PCP | Unavailable | + +------+ + Encounter Details +--------+ + + + + | Date | Type | Department | Care Team | Description | +--------+ + + + + | 04/15/ | Hospital | [facility] | | | | 2008 - | Encounter | MED CTR CANCER | | | | | | CENTER [address] | | | | 04/28/ | | [place] | | | | 2008 | | [address] | | | | | | [phone] | | | +--------+ + + + [...]
--- OUTSIDE RECORDS SUMMARY | ~2019-10-20 | XMS | Encounter Summary ---
Demographics + + + | Address | [address] | | | [place] [address] | + + + | Home Phone | | + + + | Preferred Language | Unknown | + + + | Marital Status | Single | + + + | Baptism Affiliation | Unknown | + + + | Race | Unknown | + + + | Ethnic Group | Unknown | + + + Author + + + | Author | [facility] | | | and [place] | + + + | Organization | [facility] | | | and [place] [...] Team Providers + +------+ + | Care Bolt Sawyer Name | Role | Phone | + +------+ + | Andrey Davenport MD | PCP | | + +------+ + Encounter Details +--------+ + + + + | Date | Type | Department | Care Team | Description | +--------+ + + + + | 08/02/ | Hospital | [facility] | Marilyn Monroy | | | 2019 | Encounter | MED CTR RADIATION | MD Anupama [address] | | | | | ONCOLOGY [address] | [address] [place] [address] | | | | | [place], | [address] | | | | | [place] [address] | | | | | | [phone] | | | +--------+ + + + [...]
--- OUTSIDE RECORDS SUMMARY | ~2019-10-20 | XMS | Encounter Summary ---
Demographics + + + | Address | [address] | | | [place] [address] | + + + | Home Phone | | + + + | Preferred Language | Unknown | + + + | Marital Status | Single | + + + | Taoist Affiliation | Unknown | + + + | Race | Unknown | + + + | Ethnic Group | Unknown | + + + Author + + + | Author | [facility] | | | and [place] | + + + | Organization | [facility] | | | and [place] [...] Team Providers + +------+ + | Care Retail Assistant Manager Name | Role | Phone | + +------+ + | Lonnie Ortega MD | PCP | | + +------+ + Reason for Visit +---------+ + | Reason | Comments | +---------+ + | Post Op | Post op from removal of left subclavian PowerPort. | +---------+ + Evaluate & Treat (Routine) +--------+ + + [...] | type of | [place] | | | | | non-Hodgkin | [place], [place] | [place] [address] | | | | | lymphoma, | [address] | Phone: | | | | | unspecified | Phone: | [phone] | | | | | body region | [phone] | Fax: | | | | | (HCC) | Fax: | [phone] | | | | | | [phone] | | +--------+ + + + + + Encounter Details +--------+---------+ + + + | Date | Type | Department | Care Team | Description | +--------+---------+ + + + | 01/07/ | Office | [facility] | Ciara Hardin MD | Post-operative state | | 2019 | Visit | SURGERY [address] | [address] [place] | (Primary Dx); Other | | | | [address] [facility], [place] | [place] [address] | specified type of | | | | [address] | [phone] | non-Hodgkin | | | | [phone] | | lymphoma, | | | | | | unspecified body | | | | | | region (HCC) | +--------+---------+ + + + Social [...] encounter Progress Notes Ciara Hardin MD - 01/07/2019 9:15 AM PDT Post op Note Referring Provider: Ciara Hardin MD HISTORY OF PRESENT ILLNESS Patient Identification: Sukh Bolden 1930 Is a 88 y.o. male, a patient of And farhad Ortega MD. Patient is here alone today. S: Date of surgery: 01/01/2019. Title of surgery: Removal of left subclavian PowerPor t. Physician notes: Sotero here for follow-up status post PowerPort removal. Patient had no issues with the wound including redness or drainage. Pain that he was having lateral and inferior to the port si te has improved but not resolved. Imaging/ Pathology: NONE PAST MEDICAL HISTORY Past Medical History: Diagnosis [...] Dr. De La Rosa UPPER GASTROINTESTINAL ENDOSCOPY Allergies Allergen Reactions Levofloxacin Hives Fluvastatin Other (See Comments) Pravastatin Other (See Comments) Medications: Outpatient Encounter Medications as of 01/07/2019 Medication Sig Dispense Refill albuterol (PROVENTIL) 90 [...] Take 1 table t by mouth Daily. montelukast (SINGULAIR) 10 mg tablet Take 10 mg by mouth nightly. Multiple Vitamins-Minerals (MACULAR VITAMIN BENEFIT PO) Take 1 tablet by mouth Daily. pantoprazole (PROTONIX) 40 mg tablet Take 40 mg by mouth every morning (before breakfas t). Polyethyl Glycol-Propyl Glycol (SYSTANE OP) Apply to eye 4 times daily. simvastatin (ZOCOR) 40 mg tablet Take 40 mg by mouth nightly. No facility-administered encounter medications on file as of 01/07/2019. Family History: His family history includes Breast cancer in his daughter; Cancer in his brother, daughter, and son; Colon cancer in his father; Stomach cancer in his brother, mother, sister, and sis ter. Social History: He reports that he quit smoking about 34 years ago. He has a 30.00 pack-year smoking histor y. He has never used smokeless tobacco. He reports that he does not drink alcohol or use archie gs. PHYSICAL EXAM BP 126/66 | Pulse 73 | Temp 36.4 C (97.5 F) (Temporal) | Ht 1.778 m (5' 10") | Wt 7 6.1 kg (167 lb 12.3 oz) | SpO2 99% | BMI 24.07 kg/m PE: Gen Catracho - alert, cooperative and no distress Lungs - respirations non labored Incision - intact with skin glue and no surrounding erythema or drainage. Neurologic - Alert and oriented. CN II-XII grossly intact. ASSESSMENT/PLAN Sukh was seen today for post op. Diagnoses and all orders for this visit: Post-operative state Other specified type of non-Hodgkin lymphoma, unspecified body region (HCC) - Hardin surgery Sotreo's port removal site is healing well. Again discussed that his pain at the prior port s ite may not resolve completely due to scar tissue that is present in the area. Discussed tr ial of anti-inflammatory medication for several days to try to help with the pain. May foll ow-up on an as-needed basis. Ciara Hardin MD PCP: Lonnie Ortega MD Portions of this chart may have been created with [employer] voice recognition software. Occasi onal wrong-word or sound-alike substitutions may have occurred due to the inherent reaves itations of voice recognition software. Please read the chart carefully and recognize, using context, where these substitutions have occurred. documented in this encounter Plan of Treatment Not on filedocumented as of this encounter Visit Diagnoses + + | Diagnosis | + + | Post-operative state - Primary Other postprocedural status | + + | Other specified type of non-Hodgkin lymphoma, unspecified body region (HCC) | + + documented in this encounter
--- OUTSIDE RECORDS SUMMARY | ~2019-10-20 | XMS | Encounter Summary ---
Demographics + + + | Address | [address] | | | [place] [address] | + + + | Home Phone [...] | Organization | [facility] | | | and [...] Team Providers + +------+ + | Care Destination Sign Repairer Name | Role | Phone | + [...] + + | 08/06/ | Hospital | [facility] | Marilyn Monroy | Diffuse large B-cell | | 2019 | Encounter | MED CTR RADIATION | MD Anupama [address] | lymphoma of | | | | ONCOLOGY CLINIC [address] | [place], [place] | extranodal site | | | | [place] | [address] | excluding spleen and | | | | [place] [address] | | other solid organs | | | | [phone] | | (HCC) (Primary Dx) | +--------+ [...] needed. - Follow-up with Dr. Flynn in [place] as directed. 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
--- OUTSIDE RECORDS SUMMARY | ~2019-10-20 | XMS | Encounter Summary ---
Demographics + + + | Address | [address] | | | [place] [address] | + + + | Home Phone | | + + + | Preferred Language | Unknown | + + + | Marital Status | Single | + + + | Adventism Affiliation | Unknown | + + + | Race | Unknown | + + + | Ethnic Group | Unknown | + + + Author + + + | Author | [facility] | | | and [place] | + + + | Organization | [facility] | | | and [place] | [...] Team Providers + +------+ + | Care Senior Project Coordinator Name | Role | Phone | + +------+ + | Andrey Davenport MD | PCP | | + +------+ + Encounter Details +--------+ + + + + | Date | Type | Department | Care Team | Description | +--------+ + + + + | 07/04/ | Hospital | [facility] | Marilyn Monroy | | | 2019 | Encounter | MED CTR RADIATION | MD Anupama [address] | | | | | ONCOLOGY [address] | [address] [place] [address] | | | | | [place], | [address] | | | | | [place] [address] | | | | | | [phone] | | | +--------+ + + + [...]
--- OUTSIDE RECORDS SUMMARY | ~2019-10-20 | XMS | Encounter Summary ---
Demographics + + + | Address | [address] | | | [place] [address] | + + + | Home Phone | | + + + | Preferred Language | Unknown | + + + | Marital Status | Single | + + + | Mosque Affiliation | Unknown | + + + | Race | White | + + + | Ethnic Group | Not or | + + + Author + + + | Author | [facility] | + + + | Organization | [facility] | + + + | Address | Unknown | + + + | Phone | Unavailable | + + + Support + + +---------+ + | Name | Relationship | Address | Phone | + + +---------+ + | Vicki Espinoza | ECON | Unknown | | + + +---------+ + Care Team Providers + +------+ + | Care Special Deputy Sheriff Name | Role | Phone | + +------+ + | Roxana Kemp PA-C | PCP | | + +------+ + Reason for Visit + + + | Reason | Comments | + + + | New Patient Visit | | + + + Benefits Check (Routine) +--------+--------+ + + + + | Status | Reason | Specialty | Diagnoses / | Referred By | Referred To | | | | | Procedures | Contact | Contact | +--------+--------+ + + + + | Closed | | Ophthalmology | | Non-[facility] | [facility] | | | | | | [facility] | Kayode Collier MD | | | | | | | [address] | [address] | | | | | | | [place], [place] | | | | | | | [address] | | | | | | | Phone: | | | | | | | [phone] | | | | | | | Fax: | | | | | | | [phone] | +--------+--------+ + + + + Encounter Details +--------+---------+ + + + | Date | Type | Department | Care Team | Description | +--------+---------+ + + + | 12/26/ | Office | [facility] | Kayode Peña, | Epiretinal membrane, | | 2018 | Visit | [facility] | [address] | right eye (Primary | | | | [place] [address] | [address] | Dx); Vitreomacular | | | | [facility] | [place], [place] | traction, left; | | | | Clinic [place], | [address] | Lamellar macular | | | | [place] [address] | [phone] | hole, right eye | | | | [phone] | | | +--------+---------+ + + + Social History [...] + + documented as of this encounter Progress Notes Kayode Peña MD - 12/26/2017 1:20 PM PDTFormatting of this note might be different fr om the original. [facility] Progress Note 12/26/2017 Assessment & Plan: 87 y.o. male Epiretinal membrane, right eye Mild -observe Vitreomacular traction, left eye Minimal symptoms, traction visible on OCT does not warrant surgery. -RD precautions given -note to Dr. Hansen Lamellar macular hole, right eye Mild anatomical changes and symptoms tolerable. -Amsler grid to self monitor -surgery not indicated Follow up: Return in about 9 months (around 09/25/2018). - Call for decreased vision, increased distortion, increased pain, new floaters or flashing lights Chief Complaint: New Patient Visit HPI: Patient referred by Dr. Ventura Hansen Vision right eye is gradually getting more dim and he as a lot of floaters x several years. No flashes of light. Sees double when looking at [place]- one on top the other. It's still monika ble when he closes one eye. ROS Positive for: Cardiovascular, Eyes, Respiratory Negative for: Constitutional, Gastrointestinal, Neurological, Skin, Genitourinary, Musculo skeletal, HENT, Endocrine, Psychiatric, Allergic/Imm, Heme/Lymph Last edited by Rossy Robertson on 12/26/2017 1:32 PM. (History) Current Outpatient Prescriptions (Other) Medication Sig albuterol Inhale by mouth every four hours as needed. aspirin EC Take 81 mg by mouth once daily. ipratropium-albuterol INHALE 1 PUFF BY MOUTH FOUR TIMES A DAY lisinopril-hydrochlorothiazide TAKE 1 TABLET BY MOUTH EVERY DAY FOR BLOOD PRESSURE MEDICATION HELP Indications: Macular Health montelukast TAKE ONE TABLET BY MOUTH EVERY DAY omeprazole Take 40 mg by mouth once daily. simvastatin Take 40 mg by mouth once daily in the evening. Past Medical History: Diagnosis Date Macular degeneration Melanoma in situ of external ear, right (HCC) Past Surgical History Procedure Laterality Date Cataract extraction, left eye Cataract extraction, right eye Family History Problem Relation Macular degeneration Neg Hx Retinal detachment Neg Hx Glaucoma Neg Hx Cataracts Neg Hx Blindness Neg Hx Diabetes Neg Hx Social History Occupational History Not on file. Social History Main Topics Smoking status: Former Smoker Smokeless tobacco: Never Used Alcohol use Not on file Drug use: Unknown Sexual activity: Not on file Examination: See Ophthalmology Module Attestations: The hydroelectric production technician, under the supervision of the physician, is responsible for performing the f ollowing sections: RFV, ROS, PMH, PSH, SocHx, FH, Med list, Base Ophth Exam. The attending physician is responsible for the entire content of the note and has personall y performed the HPI and the physical examination KAYODE PEÑA MD documented in this e ncounter Plan of Treatment Not on filedocumented as of this encounter Procedures + +--------+ + + + | Procedure Name | Priori | Date/Time | Associated Diagnosis | Comments | | | ty | | | | + +--------+ + + + | OCT, RETINA | Routin | 12/30/2017 | Epiretinal | Results for this | | | e | 10:23 AM | membrane, right eye | procedure are in the | | | | PDT | | results section. | + +--------+ + + + documented in this encounter Results OCT, RETINA (12/30/2017 10:23 AM PDT) + + + | Narrative | Performed At | + + + | [facility]wn [facility] | [facility] | | DocumentationRight EyeCentral macular thickness: 341 Left | [facility] | | EyeCentral macular thickness: 326 Provider DocumentationRight | | | EyeRetinal findings: Lamellar hole, epiretinal membrane Left | | | EyeRetinal findings: vitreomacular traction | | |Left Eye | | |Central macular thickness: 326 | | | | | | | | |Provider Documentation | | |Right Eye | | |Retinal findings: Lamellar hole, epiretinal membrane | | | | | | | | |Left Eye | | |Retinal findings: vitreomacular traction | | + + + + + + + + | Performing | Address | City/State/Zipcode | Phone Number | | Organization | | | | + + + + + | [facility] | [address] | [place] [address] | | | INSTITUTE | [place]. | | | + + + + + documented in this encounter Visit Diagnoses + + | Diagnosis | + + | Epiretinal membrane, right eye - Primary Macular puckering of retina | + + | Vitreomacular traction, left | + + | Lamellar macular hole, right eye Macular cyst, hole, or pseudohole of retina | + + documented in this encounter"
--- OUTSIDE RECORDS SUMMARY | ~2019-10-20 | XMS | Encounter Summary ---
Demographics + + + | Address | [address] | | | [place] [address] | + + + | Home Phone | | + + + | Preferred Language | Unknown | + + + | Marital Status | Single | + + + | Uatsdin Affiliation | Unknown | + + + | Race | White | + + + | Ethnic Group | Not or | + + + Author + + + | Author | [facility] | + + + | Organization | [facility] | + + + | Address | Unknown | + + + | Phone | Unavailable | + + + Support + + +---------+ + | Name | Relationship | Address | Phone | + + +---------+ + | Vicki Espinoza | ECON | Unknown | | + + +---------+ + Care Team Providers + +------+ + | Care Oracle Distribution Consultant Name | Role | Phone | [...] | | | | | | | [place], [place] | | | | | | | [address] | | | | | | | Phone: | | | | | | | [phone] | | | | | | | Fax: | | | | | | | [phone] | +--------+--------+ + + + + Encounter Details +--------+---------+ + + + | Date | Type | Department | Care Team | Description | +--------+---------+ + + + | 12/26/ | Office | [facility] | Kayode Peña, | Epiretinal membrane, | | 2018 | Visit | [facility] | [address] | right eye (Primary | | | | [place] [address] | [address] | Dx); Vitreomacular | | | | [facility] | [place], [place] | traction, left; | | | | Clinic [place], | [address] | Lamellar macular | | | | [place] [address] | [phone] | hole, right eye | | | | [phone] | | | +--------+---------+ + + + [...] might be different fr om the original. [facility] Progress Note 12/26/2017 Assessment & Plan: 87 [...] file Examination: See Ophthalmology Module Attestations: The community development technician, under the supervision of the physician, [...] Performed At | + + + | Water Control Station Engineer | [facility] | | DocumentationRight EyeCentral [...] | + + + + + | [facility] | [address] | [place] [address] | | | INSTITUTE | [place]. | [...]
--- OUTSIDE RECORDS SUMMARY | ~2019-10-20 | XMS | Clinical Summary ---
Demographics + + + | Address | [address] | | | [place] [address] | + + + | Home Phone | | + + + | Preferred Language | Unknown | + + + | Marital Status | Single | + + + | Roman Catholic Affiliation | Unknown | + + + | Race | White | + + + | Ethnic Group | Not or | + + + Author + + + | Author | [facility] | + + + | Organization | [facility] | + + + | Address | Unknown | + + + | Phone | Unavailable | + + + Support + + +---------+ + | Name | Relationship | Address | Phone | + + +---------+ + | Vicki Espinoza | ECON | Unknown | | + + +---------+ + Care Team Providers + +------+ + | Care Torch Shearer Name | Role | Phone | + +------+ + | Roxana Kemp PA-C | PCP | | + +------+ + Source Comments [facility] is fully live on both [facility] and [facility] InPatient.[facility] Allergies + + + + + + [...] | MEDICA | xxxxxxxxxxx | 10/27/18 | [phone] | [address] | Medica | | | RE A & | | [address] | [address] | [address] | re | | | B | | sent | | [place] | | | | | | | | [address] | | + +--------+ +--------+ + +--------+ | [employer] MED[employer]ARE | MODA | xxxxxxxxx | 04/29/19 | [phone] | [address] | POS | | SUPPLEMENT | MEDICA | | 17-Pre | 4 | [address] | | | | RE | | sent | | [place], | | | | [place]PPLE | | | | [place] [address] | | | | MENT | | [...] leigha | | | 8 (Home) | [address] | + +--------+ +--------+ + +"
--- OUTSIDE RECORDS SUMMARY | ~2019-10-20 | XMS | Encounter Summary ---
Demographics + + + | Address | [address] | | | [place] [address] | + + + | Home Phone | | + + + | Preferred Language | Unknown | + + + | Marital Status | Single | + + + | Taoism Affiliation | Unknown | + + + | Race | Unknown | + + + | Ethnic Group | Unknown | + + + Author + + + | Author | [facility] | | | and [place] | + + + | Organization | [facility] | | | and [place] [...] Team Providers + +------+ + | Care Customer Care Professional Name | Role | Phone | + +------+ + PCP | Unavailable | + +------+ + Encounter Details +--------+ + + + + | Date | Type | Department | Care Team | Description | +--------+ + + + + | 02/24/ | Hospital | [facility] | Jordan Escalera MD | | | 2002 | Encounter | MED CTR GENERIC OP | [address] | | | | | CONV DEPT [address] | [address] [place] [address] | | | | | [place], | [address] | | | | | [place] [address] | | | | | | [phone] | | | +--------+ + + + [...]
--- OUTSIDE RECORDS SUMMARY | ~2019-10-20 | XMS | Encounter Summary ---
Demographics + + + | Address | [address] | | | [place] [address] | + + + | Home Phone | | + + + | Preferred Language | Unknown | + + + | Marital Status | Single | + + + | Alevism Affiliation | Unknown | + + + | Race | Unknown | + + + | Ethnic Group | Unknown | + + + Author + + + | Author | [facility] | | | and [place] | + + + | Organization | [facility] | | | and [...] Team Providers + +------+ + | Care Paper Colorer Name | Role | Phone | + [...] + + | 07/24/ | Hospital | [facility] | Marilyn Monroy | Diffuse large B-cell | | 2019 | Encounter | MED CTR RADIATION | MD Anupama [address] | lymphoma of | | | | [facility]Y [facility] [address] | [place], [place] | extranodal site | | | | [address] | [address] | excluding spleen and | | | | [place] [address] | | other solid organs | | | | [phone] | | (HCC) (Primary Dx) | +--------+ [...] He is doing very well with treatment. [facility] fatigue report. No skin irritation. Toxicities reviewed [...]
--- OUTSIDE RECORDS SUMMARY | ~2019-10-20 | XMS | Encounter Summary ---
Demographics + + + | Address | [address] | | | [place] [address] | + + + | Home Phone [...] | [facility] | | | and [place] [...] Team Providers + +------+ + | Care Nibbler Operator Name | Role | Phone | + +------+ + PCP | Unavailable | + +------+ + Encounter Details +--------+ + + + + | Date | Type | Department | Care Team | Description | +--------+ + + + + | 01/22/ | Hospital | [facility] | Peter Nunez, | | | 2000 | Encounter | MED CTR MP INTRA OP | [address] | | | | | [address] | [place] | | | | | [place] | [address] | | | | | [address] | | | | | | [phone] | | | +--------+ + + + [...]
--- OUTSIDE RECORDS SUMMARY | ~2019-10-20 | XMS | Encounter Summary ---
Demographics + + + | Address | [address] | | | [place] [address] | + + + | Home Phone [...] | Organization | [facility] | | | and [...] Team Providers + +------+ + | Care Research Quality Assurance Specialist Name | Role | Phone | + +------+ + PCP | Unavailable | + +------+ + Encounter Details +--------+ + + + + | Date | Type | Department | Care Team | Description | +--------+ + + + + | 01/28/ | Hospital | [facility] | Peter Nunez, | | | 2000 | Encounter | MED CTR XRAY [address] | MD David MYERS | | | | | [place] | [place] | | | | | [place] [address] | [id number] | | | | | [phone] | | | +--------+ + + + [...]
--- OUTSIDE RECORDS SUMMARY | ~2019-10-20 | XMS | Encounter Summary ---
Demographics + + + | Address | [address] | | | [place] [address] | + + + | Home Phone | | + + + | Preferred Language | Unknown | + + + | Marital Status | Single | + + + | Quaker Affiliation | Unknown | + + + | Race | Unknown | + + + | Ethnic Group | Unknown | + + + Author + + + | Author | [facility] | | | and [place] | + + + | Organization | [facility] | | | and [place] [...] Team Providers + +------+ + | Care Lens Mold Setter Name | Role | Phone | + +------+ + PCP | Unavailable | + +------+ + Encounter Details +--------+ + + + + | Date | Type | Department | Care Team | Description | +--------+ + + + + | 02/18/ | Hospital | [facility] | | | | 2006 - | Encounter | MED CTR CANCER | | | | | | CENTER [address] | | | | 02/26/ | | [place] | | | | 2006 | | [address] | | | | | | [phone] | | | +--------+ + + + [...]
--- OUTSIDE RECORDS SUMMARY | ~2019-10-20 | XMS | Clinical Summary ---
Demographics + + + | Address | [address] | | | [place] [address] | + + + | Home Phone [...] + + | Author | [facility] | + + + | Organization | [facility] | + + + | Address | Unknown | + + + | Phone | Unavailable | + + + Support + + +---------+ + | Name | Relationship | Address | Phone | + + +---------+ + | Vicki Espinoza | ECON | Unknown | | + + +---------+ + Care Team Providers + +------+ + | Care Balance Sheet Analyst Name | Role | Phone | + +------+ + | Roxana Kemp PA-C | PCP | | + +------+ + Source Comments FIONA is fully live on both [facility] Ambulatory and [facility] InPatient.[facility] Allergies + + + + + + [...] | MEDICA | xxxxxxxxxxx | 10/27/18 | [phone] | [address] | Medica | | | RE A & | | 96-Pre | 1 | [address] | re | | | B | | sent | | [place] | | | | | | | | [address] | | + +--------+ +--------+ + +--------+ | MODA MEDICARE | MODA | xxxxxxxxx | 04/29/19 | [phone] | [address] | POS | | SUPPLEMENT | MEDICA | | 17-Pre | 4 | [id number] | | | | RE | | sent | | [place], | | | | SUPPLE | | | | [place] [address] | | | | MENT | | [...] [place] | | | 8 (Home) | [address] | + +--------+ +--------+ + +"
--- OUTSIDE RECORDS SUMMARY | ~2019-10-20 | XMS | Encounter Summary ---
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[place], | | | | | lymphoma of | [address] | [place] [address] | | | | | extranodal | [place], | Phone: | | | | | site | [place] [address] | [phone] | | | | | excluding | Phone: | Fax: | | | | | spleen and | [phone] | [phone] | | | | | other solid | Fax: | | | | | | organs (HCC) | [phone] | | | | | | Procedures | | | | | | | CT | | | | | | | Treatment | | | | | | | Plan Complex | | | | | | | CT TX PLAN | | | +--------+--------+ + + + + Reason for Visit Diagnostic/Screening (Routine) +--------+--------+ + + + + | Status | Reason | Specialty | Diagnoses / | Referred By | Referred To | | | | | Procedures | Contact | Contact | +--------+--------+ + + + + | Closed | | Radiology | Diagnoses | Riegert, | [address] | | | | | 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, | [address]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 [address] | [place], | | | | | lymphoma of | [address] | [place] [address] | | | | | extranodal | [place], | Phone: | | | | | site | [place] [address] | [phone] | | | | | excluding | Phone: | Fax: | | | | | spleen and | [phone] | [phone] | | | | | other solid | Fax: | | | | | | organs (HCC) | [phone] | | | | | | Procedures [...] + + | 07/09/ | Hospital | [facility] | Marilyn Monroy | 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
--- OUTSIDE RECORDS SUMMARY | ~2019-10-20 | XMS | Encounter Summary ---
Demographics + + + | Address | [address] | | | [place] [address] | + + + | Home Phone [...] | Organization | [facility] | | | and [...] Team Providers + +------+ + | Care Garnett Room Worker Name | Role | Phone | + +------+ + | Lonnie Ortega MD | PCP | | + +------+ + Encounter Details +--------+ + + + + | Date | Type | Department | Care Team | Description | +--------+ + + + + | 08/06/ | Documentati | [facility] | Marilyn Monroy | | | 2019 | on | MED CTR RADIATION | MD Anupama [address] | | | | | [facility]OGY CLINIC [address] | [facility] [address] [address] | | | | | [address] [place] | [address] | | | | | [place] [address] | | | | | | [phone] | | | +--------+ + + + [...]
--- OUTSIDE RECORDS SUMMARY | ~2019-10-20 | XMS | Encounter Summary ---
Demographics + + + | Address | [address] | | | [place] [address] | + + + | Home Phone | | + + + | Preferred Language | Unknown | + + + | Marital Status | Single | + + + | Presybeterian Affiliation | Unknown | + + + | Race | Unknown | + + + | Ethnic Group | Unknown | + + + Author + + + | Author | [facility] | | | and [place] | + + + | Organization | [facility] | | | and [...] Team Providers + +------+ + | Care Media/Instructional Designer Name | Role | Phone | + +------+ + PCP | Unavailable | + +------+ + Encounter Details +--------+ + + + + | Date | Type | Department | Care Team | Description | +--------+ + + + + | 08/11/ | Hospital | [facility] | | | | 2003 - | Encounter | MED CTR CANCER | | | | | | CENTER [address] | | | | 11/17/ | | [place] | | | | 2003 | | [address] | | | | | | [phone] | | | +--------+ + + + [...]
--- OUTSIDE RECORDS SUMMARY | ~2019-10-20 | XMS | Encounter Summary ---
Demographics + + + | Address | [address] | | | [place] [address] | + + + | Home Phone [...] | Organization | [facility] | | | and [place] [...] Team Providers + +------+ + | Care Out Patient Therapist Name | Role | Phone | + +------+ + | Lonnie Ortega MD | PCP | | + +------+ + Reason for Visit + + + | Reason | Comments | + + + | Procedure | Port removal | + + + Evaluate & Treat (Routine) +--------+--------+ + + + + | Status | Reason | Specialty | Diagnoses / | Referred By | Referred To | | | | | Procedures | Contact | Contact | +--------+--------+ + + + + | Closed | | General | Diagnoses | | [facility] | | | | Surgery | Non-Hodgkin | Gee, | General | | | | | lymphoma, | Michael C, | Surgery [address] | | | | | unspecified, | [address] | | | | | unspecified | [place], | [place], | | | | | site (HCC) | [address] | [place] [address] | | | | | Procedures | [place], | Phone: | | | | | IN OFFICE | [place] [address] | [phone] | | | | | OUTPATIENT | | Fax: | | | | | NEW 45 | | [phone] | | | | | MINUTES | | | +--------+--------+ + + + + Encounter Details +--------+ + + + + | Date | Type | Department | Care Team | Description | +--------+ + + + + | 01/01/ | Procedure | [facility] | Ciara Hardin MD | Port-A-Cath in place | | 2019 | visit | SURGERY [address] | [address] | | | | | [address] [place] | [place] [address] | | | | | [address] | [phone] | | | | | [phone] | | | +--------+ + + + [...] + + + | Blood Pressure | 136/60 | 01/01/2019 9:03 AM | | | | | PDT | | + + + + + | Pulse | 86 | 01/01/2019 9:03 AM | | | | | PDT | | + + + + + | Temperature | 36.3 C (97.4 F) | 01/01/2019 9:03 AM | | | | | PDT | | + + + + + | Respiratory Rate | - | - | | + + + + + | Oxygen Saturation | 97% | 01/01/2019 9:03 AM | | | | | PDT | | + + + + + | Inhaled Oxygen | - | - | | | Concentration | | | | + + + + + | Weight | 73.1 kg (161 lb 2.5 | 01/01/2019 9:03 AM | | | | oz) | PDT | | + + + + + | Height | 177.8 cm (5' 10") | 01/01/2019 9:03 AM | | | | | PDT | | + + + + + | Body Mass Index | 23.12 | 01/01/2019 9:03 AM | | | | | PDT | | + + + + + documented in this encounter Progress Notes Ciara Hardin MD - 01/01/2019 9:15 AM PDT Procedure Note Name:SUKH BOLDEN Pre-op Diagnosis: PowerPort in place, lymphoma Post-op Diagnosis: Same Title of Procedure: Removal of left subclavian PowerPort Indications: Sotero is a 88-year-old male with history of lymphoma, currently in remission and no longer in need of port. He is also had tenderness at the port site and would like to pr oceed with removal. Findings: Port removed from the left chest with catheter from the left subclavian vein, completely in tact Procedure: Patient was placed in the supine position on table. The port site was prepped and draped i n usual sterile fashion. Timeout was performed. Local anesthetic was injected at the perio perative site. Incision was made overlying the port using the old scar. Dissection was car ried down to level of the port bluntly and with electrocautery. The port was dissected out circumferentially. There were no sutures attaching it to the underlying tissue. The cathet er was then removed left subclavian vein and noted to be entirely intact. Hemostasis of the port pocket was achieved with electrocautery. The wound was then closed in 2 layers. Firs t with interrupted 3-0 Vicryl deep dermal sutures. Then a running 4-0 Monocryl subcuticular stitch. Skin glue, folded 4 x 4, Tegaderm dressing were placed over the wound. The patien t tolerated the procedure well. EBL: 2cc Follow-up care instructions explained to patient and written instructions sent with patient . Ciara Hardin MD Portions of this chart may have been created with swiftQueue voice recognition software. Occasi onal wrong-word or sound-alike substitutions may have occurred due to the inherent reaves itations of voice recognition software. Please read the chart carefully and recognize, using context, where these substitutions have occurred. documented in this enco unter Plan of Treatment Not on filedocumented as of this encounter Procedures + +--------+ + + + | Procedure Name | Priori | Date/Time | Associated Diagnosis | Comments | | | ty | | | | + +--------+ + + + | IMAGING REPORT - | | 01/02/2019 | [place] in | Results for this | | EXTERNAL SCAN | | 12:00 AM | place | procedure are in the | | | | PDT | | results section. | + +--------+ + + + documented in this encounter Results IMAGING REPORT - EXTERNAL SCAN (01/02/2019 12:00 AM PDT) + + + | Narrative | Performed At | + + + | Ordered by an | | | unspecified provider. | | + + + documented in this encounter Visit Diagnoses + + | Diagnosis | + + | Port-A-Cath in place Other postprocedural status | + + documented in this encounter
--- OUTSIDE RECORDS SUMMARY | ~2019-10-20 | XMS | Clinical Summary ---
Demographics + + + | Address | [address] | | | [place] [address] | + + + | Home Phone | | + + + | Preferred Language | Unknown | + + + | Marital Status | Single | + + + | Zoroastrianism Affiliation | Unknown | + + + | Race | Unknown | + + + | Ethnic Group | Unknown | + + + Author + + + | Author | [facility] | | | and [place] | + + + | Organization | [facility] | | | and [place] [...] Team Providers + +------+ + | Care Azure Architect Name | Role | Phone | [...] Overview: Added automatically from request for surgery [id number] | + + + + + | S/P bilateral inguinal hernia repair | 12/01/2018 | + + + | Bilateral inguinal hernia | 09/04/2018 | + + + + + | Overview: Added automatically from request for surgery [id number] | + + + + + | [...] | + + + + | INFLUENZA, [id number], | 04/16/2009 | | | INACTIVATED | | | + + + + | INFLUENZA, [id number], | 04/16/2009 | | | UNSPECIFIED | [...] on file | | + + + Last Filed Vital Signs + [...] Health Maintenance | Due Date | Last | Comments | | | | Done | | + + + + + | Vaccine: | | | | | Dtap/Tdap/Td (1 - | 0 | | | | Tdap) | | | | + + + + + | Vaccine: Zoster (2 | | 11/07/19 | | | of 3) | 2 | 12 | | + + + + + | Adult Annual | | | | | Wellness Visit | 8 | | | + + + + + | Vaccine: Influenza | | 01/30/20 | | | (Season Ended) | 0 | 18, | | | | | 01/30/20 | | | | | 18, | | | | | 01/27/20 | | | | | 17, | | | | | Addition | | | | | al | | | | | history | | | | | exists | | + + + + + | Vaccine: | Completed | 02/06/20 | | | Pneumococcal 65+ | | 16, | | | | | 12/22/19 | | | | | 15 | | + + + + + [...] + +--------+ | MEDICARE | MEDICA | [id number] | 10/27/18 | [phone] | | Medica | | | RE | | 96-Pre | 5 | | re | | | PART A | | sent | | | | | | AND B | | | | | | + +--------+ +--------+ + +--------+ | MODA | MODA | [id number] | 04/29/19 | [phone] | [address] | Indemn | | | HEALTH | | 17-Pre | 9 | [address] | ity | | | MDCR | | sent | | [place], | | | | [place] | | | | [place] [address] | | + +--------+ +--------+ + +--------+ + +--------+ +--------+ + + | Guarantor Name | Accoun | Relation to | Date | Phone | Billing Address | | | t Type | Patient | of | | | | | | | | | | + +--------+ +--------+ + + | Sukh Bolden O | Person | Self | [birth year] | [address] | | | al/Fam | | 1931 | [phone] | [place] [address] | | | [place]a | | | 8 (Home) | | + +--------+ +--------+ + + Advance Directives + + + + + | Type | Date Recorded | Patient | Explanation | | | | Battery Vent Plug Inserter | | + + + + + | Power of | | | | | Dye Range Feeder | | | | + + + + + | Advance | | | | | Directive | | | | + + + + +
--- OUTSIDE RECORDS SUMMARY | ~2019-10-20 | XMS | Encounter Summary ---
Demographics + + + | Address | [address] | | | [place] [address] | + + + | Home Phone | | + + + | Preferred Language | Unknown | + + + | Marital Status | Single | + + + | Mu-Ism Affiliation | Unknown | + + + | Race | Unknown | + + + | Ethnic Group | Unknown | + + + Author + + + | Author | and Services [facility] | | | and [place] | + + + | Organization | and [facility] | | | and [place] [...] Team Providers + +------+ + | Care Piercer Name | Role | Phone | + [...] [address] | | | | | IMAGING [address] | [address] | | | | | [address] | [place] [address] | | | | | [place] [address] | | | | | | [phone] | | | +--------+ + + + [...]
--- OUTSIDE RECORDS SUMMARY | ~2019-10-20 | XMS | Encounter Summary ---
Demographics + + + | Address | [address] | | | [place] [address] | + + + | Home Phone | | + + + | Preferred Language | Unknown | + + + | Marital Status | Single | + + + | Yazidi Affiliation | Unknown | + + + | Race | Unknown | + + + | Ethnic Group | Unknown | + + + Author + + + | Author | [facility] | | | and [place] | + + + | Organization | [facility] | | | and [...] Providers + +------+ + | Care Medical Legal Investigator Name | Role | Phone | + +------+ + PCP | Unavailable | + +------+ + Encounter Details +--------+ + + + + | Date | Type | Department | Care Team | Description | +--------+ + + + + | 03/19/ | Hospital | [facility] | | | | 2006 - | Encounter | MED CTR CANCER | | | | | | CENTER [address] | | | | 03/28/ | | [place] | | | | 2006 | | [address] | | | | | | [phone] | | | +--------+ + + + [...]
--- OUTSIDE RECORDS SUMMARY | ~2019-10-20 | XMS | Encounter Summary ---
Demographics + + + | Address | [address] | | | [place] [address] | + + + | Home Phone | | + + + | Preferred Language | Unknown | + + + | Marital Status | Single | + + + | Scientology Affiliation | Unknown | + + + | Race | Unknown | + + + | Ethnic Group | Unknown | + + + Author + + + | Author | [facility] | | | and [place] | + + + | Organization | [facility] | [...] Team Providers + +------+ + | Care Environmental Services Assistant Name | Role | Phone | [...] | | [address] | [place] [address] | | | | | [place] [address] | | | | | | [phone] | | | +--------+ + + + [...]
--- OUTSIDE RECORDS SUMMARY | ~2019-10-20 | XMS | Encounter Summary ---
Demographics + + + | Address | [address] | | | [place] [address] | + + + | Home Phone [...] + + + | Author | [facility] | | | and [place] | + + + | Organization | [facility] | | | and [...] Providers + +------+ + | Care Environmental Studies Department Chair Name | Role | Phone | + +------+ + PCP | Unavailable | + +------+ + Encounter Details +--------+ + + + + | Date | Type | Department | Care Team | Description | +--------+ + + + + | 04/15/ | Hospital | [facility] | Jordan Escalera MD | | | 2008 | Encounter | MED CTR GENERIC OP | [address] | | | | | CONV DEPT [address] | [address] [place] | | | | | [place], | [address] | | | | | [place] [address] | | | | | | [phone] | | | +--------+ + + + [...]
--- OUTSIDE RECORDS SUMMARY | ~2019-10-20 | XMS | Encounter Summary ---
Demographics + + + | Address | [address] | | | [place] [address] | + + + | Home Phone | | + + + | Preferred Language | Unknown | + + + | Marital Status | Single | + + + | Hinduism Affiliation | Unknown | + + + | Race | Unknown | + + + | Ethnic Group | Unknown | + + + Author + + + | Author | [facility] | | | and [place] | + + + | Organization | [facility] | | | and [...] Team Providers + +------+ + | Care Front Desk Administrator Name | Role | Phone | + +------+ + PCP | Unavailable | + +------+ + Reason for Visit +--------+--------+ + | Reason | Onset | Comments | | | Date | | +--------+--------+ + | Other | 03/13/ | | | | 2018 | | +--------+--------+ + Encounter Details +--------+ + + + + | Date | Type | Department | Care Team | Description | +--------+ + + + + | 03/13/ | Telephone | [facility] | Gee, | Other | | 2018 | | MED CTR MEDICAL | Michael Donato MD [address] | | | | | ONCOLOGY CLINIC [address] | [address] | | | | | [address] [place] | [place] [address] | | | | | [place] [address] | [phone] | | | | | [phone] | | | +--------+ + + + [...] + + documented as of this encounter Miscellaneous Notes Telephone Encounter - Divya Bailey, BERNICE - 03/13/2018 2:31 PM PSTReturned call : davidson hernandez left requesting return call. Call to Amy at [facility], she states she is managing the rx for nausea now. Electronically s igned by Divya Bailey, BERNICE at 03/13/2018 2:33 PM PSTTelephone Encounter - Jay Leung - 03/13/2018 1:19 PM PSTPts daughter called, this is a Anna Pt. [facility] in [place] did not get the Rx for nausea. They said they only rec'd 2 prescriptions. Asks that it be resent. Please call Vicki @ [phone] please let her know if this gets done. She states patient starts Chemo tomorrow & she wishes to have all his prescriptions in plac e. Thank you documented in this encou nter Plan of Treatment Not on filedocumented as of this encounter Visit Diagnoses Not on filedocumented in this encounter"
--- OUTSIDE RECORDS SUMMARY | ~2019-10-20 | XMS | Encounter Summary ---
Demographics + + + | Address | [address] | | | [place] [address] | + + + | Home Phone | | + + + | Preferred Language | Unknown | + + + | Marital Status | Single | + + + | Oriental Orthodox Affiliation | Unknown | + + + | Race | Unknown | + + + | Ethnic Group | Unknown | + + + Author + + + | Author | [facility] | | | and [place] | + + + | Organization | [facility] | [...] Providers + +------+ + | Care Administrative Aide Name | Role | Phone | + +------+ + PCP | Unavailable | + +------+ + Encounter Details +--------+ + + + + | Date | Type | Department | Care Team | Description | +--------+ + + + + | 11/11/ | Hospital | [facility] | | | | 2000 | Encounter | MED CTR XRAY [address] | | | | | | [address] | | | | | | [place] [address] | | | | | | [phone] | | | +--------+ + + + [...]
--- OUTSIDE RECORDS SUMMARY | ~2019-10-20 | XMS | Encounter Summary ---
Demographics + + + | Address | [address] | | | [place] [address] | + + + | Home Phone | | + + + | Preferred Language | Unknown | + + + | Marital Status | Single | + + + | Caodaism Affiliation | Unknown | + + + | Race | Unknown | + + + | Ethnic Group | Unknown | + + + Author + + + | Author | [facility] | | | and [place] | + + + | Organization | [facility] | | | and [...] Team Providers + +------+ + | Care Network Control Technician Name | Role | Phone | + +------+ + PCP | Unavailable | + +------+ + Encounter Details +--------+ + + + + | Date | Type | Department | Care Team | Description | +--------+ + + + + | 01/21/ | Hospital | [facility] | Jordan Escalera MD | | | 1990 | Encounter | MED CTR GENERIC OP | [address] | | | | | CONV DEPT [address] | [address] [place] [address] | | | | | [place], | [address] | | | | | [place] [address] | | | | | | [phone] | | | +--------+ + + + [...]
--- OUTSIDE RECORDS SUMMARY | ~2019-10-20 | XMS | Encounter Summary ---
Demographics + + + | Address | [address] | | | [place] [address] | + + + | Home Phone | | + + + | Preferred Language | Unknown | + + + | Marital Status | Single | + + + | Jew Affiliation | Unknown | + + + | Race | Unknown | + + + | Ethnic Group | Unknown | + + + Author + + + | Author | [facility] | | | and [place] | + + + | Organization | [facility] | | | and [place] [...] Team Providers + +------+ + | Care Veneer Splicer Name | Role | Phone | + +------+ + | Andrey Davenport MD | PCP | | + +------+ + Reason for Visit + +--------+ + | Reason | Onset | Comments | | | Date | | + +--------+ + | IDT Note | 07/10/ | | | | 2018 | | + +--------+ + Encounter Details +--------+ + + + + | Date | Type | Department | Care Team | Description | +--------+ + + + + | 07/10/ | Telephone | [facility] | Lidia, | IDT Note | | 2019 | | MED CTR RADIATION | [address] | | | | | ON[facility]OGY CLINIC [address] | | | | | | [address] | | | | | | [place] [address] | | | | | | [phone] | | | +--------+ + + + [...] this encounter Miscellaneous Notes Telephone Encounter - Inga Murillo RN - 07/10/2018 9:55 AM PDTFormatting of this no te might be different from the original. [facility] Interdisciplinary Team Navigational Checklist ? Top Priority Discipline EPIC Order Entered Consult Scheduled Consult Complete Comments: x *Medical Oncology Dr. Flynn x *Radiation Oncology Dr. Porfirio PRATT 07/09/2018 x *Patient Navigation x *Nurse Navigator x *Social Service Survivorship Nurse Breast Health Genetics Surgical Input *Nursing assessment *Pharmacy assessment Nutrition Rehab: PT OT Speech & Language Palliative Care Clinical Trials Involvement Farm Machinery Set Up Mechanic Visit Financial Assistance Interdisciplinary Consults Completed Date: documented in this encounter Plan of Treatment Not on filedocumented as of this encounter Visit Diagnoses Not on filedocumented in this encounter"
--- OUTSIDE RECORDS SUMMARY | ~2019-10-20 | XMS | Encounter Summary ---
Demographics + + + | Address | [address] | | | [place] [address] | + + + | Home Phone [...] | Organization | [facility] | | | and [...] Team Providers + +------+ + | Care Yarding And Folding Machine Operator Name | Role | Phone | + +------+ + PCP | Unavailable | + +------+ + Encounter Details +--------+ + + + + | Date | Type | Department | Care Team | Description | +--------+ + + + + | 01/17/ | Hospital | [facility] | Jordan Escalera MD | | | 1992 | Encounter | MED CTR XRAY [address] | [address] | | | | | [address] | [address] [place] [address] | | | | | [place] [address] | [address] | | | | | [phone] | | | +--------+ + + + [...]
--- OUTSIDE RECORDS SUMMARY | ~2019-10-20 | XMS | Encounter Summary ---
Demographics + + + | Address | [address] | | | [place] [address] | + + + | Home Phone | | + + + | Preferred Language | Unknown | + + + | Marital Status | Single | + + + | Sikh Affiliation | Unknown | + + + | Race | Unknown | + + + | Ethnic Group | Unknown | + + + Author + + + | Author | [facility] | | | and [place] | + + + | Organization | [facility] | | | and [place] [...] Team Providers + +------+ + | Care Car Unloader Helper Name | Role | Phone | [...] + + | 07/17/ | Hospital | [facility] | Marilyn Monroy | 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 Reviewed process of OTV day for their doctor, all questions at [...] Planned Fractions Delivered 200 cGy 3000 cGy 05/13 Images were reviewed this week and results [...]
--- OUTSIDE RECORDS SUMMARY | ~2019-10-20 | XMS | Encounter Summary ---
Demographics + + + | Address | [address] | | | [place] [address] | + + + | Home Phone | | + + + | Preferred Language | Unknown | + + + | Marital Status | Single | + + + | Mandaeism Affiliation | Unknown | + + + | Race | White | + + + | Ethnic Group | Not or | + + + Author + + + | Author | [facility] | + + + | Organization | [facility] | + + + | Address | Unknown | + + + | Phone | Unavailable | + + + Support + + +---------+ + | Name | Relationship | Address | Phone | + + +---------+ + | Vicki Espinoza | ECON | Unknown | | + + +---------+ + Care Team Providers + +------+ + | Care Web Press Operator Helper Offset Name | Role | Phone | + [...] | | | | | | | [place], [place] | | | | | | | [address] | | | | | | | Phone: | | | | | | | [phone] | | | | | | | Fax: | | | | | | | [phone] | +--------+--------+ + + + + Encounter Details +--------+---------+ + + + | Date | Type | Department | Care Team | Description | +--------+---------+ + + + | 12/26/ | Office | [facility] | Kayode Peña, | Epiretinal membrane, | | 2018 | Visit | [facility] | [address] | right eye (Primary | | | | [place] [address] | [address] | Dx); 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 [facility] Progress Note 12/26/2017 Assessment & Plan: [...] file Examination: See Ophthalmology Module Attestations: The automated access systems technician, under the supervision of the physician, [...] Performed At | + + + | Customs And Immigration Officer | [facility] | | [facility] [...] | + + + + + | [facility] | [address] | [place] [address] | | | INSTITUTE | [place]. | [...]
--- OUTSIDE RECORDS SUMMARY | ~2019-10-20 | XMS | Encounter Summary ---
Demographics + + + | Address | [address] | | | [place] [address] | + + + | Home Phone | | + + + | Preferred Language | Unknown | + + + | Marital Status | Single | + + + | Shinto Affiliation | Unknown | + + + | Race | Unknown | + + + | Ethnic Group | Unknown | + + + Author + + + | Author | [facility] | | | and [place] | + + + | Organization | [facility] | | | and [place] [...] Team Providers + +------+ + | Care Appointment Specialist Name | Role | Phone | + +------+ + | Andrey Davenport MD | PCP | | + +------+ + Encounter Details +--------+ + + + + | Date | Type | Department | Care Team | Description | +--------+ + + + + | 07/31/ | Hospital | [facility] | Austin Tinajero DO | Diffuse large B-cell | | 2019 | Encounter | MED CTR RADIATION | [address] | lymphoma of | | | | ONCOLOGY CLINIC [address] | [place] | extranodal site | | | | [place] | [address] | excluding spleen and | | | | [place] [address] | | other solid organs | | | | [phone] | | (HCC) (Primary Dx) | +--------+ [...]
--- OUTSIDE RECORDS SUMMARY | ~2019-10-20 | XMS | Encounter Summary ---
Demographics + + + | Address | [address] | | | [place] [address] | + + + | Home Phone | | + + + | Preferred Language | Unknown | + + + | Marital Status | Single | + + + | Druze Affiliation | Unknown | + + + | Race | Unknown | + + + | Ethnic Group | Unknown | + + + Author + + + | Author | [facility] | | | and [place] | + + + | Organization | [facility] | | | and [place] [...] Team Providers + +------+ + | Care Hospitality Team Member Name | Role | Phone | + [...] + + | 11/05/ | Hospital | [facility] | Marilyn Monroy | Diffuse large B-cell | | 2019 | Encounter | MED CTR RADIATION | MD Anupama [address] | lymphoma of | | | | ONCOLOGY CLINIC [address] | [place], [place] | extranodal site | | | | [place] | [address] | excluding spleen and | | | | [place] [address] | | other solid organs | | | | [phone] | | (HCC) (Primary Dx) | +--------+ [...] M.D. 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
--- OUTSIDE RECORDS SUMMARY | ~2019-10-20 | XMS | Encounter Summary ---
Demographics + + + | Address | [address] | | | [place] [address] | + + + | Home Phone | | + + + | Preferred Language | Unknown | + + + | Marital Status | Single | + + + | Anglican Affiliation | Unknown | + + + | Race | Unknown | + + + | Ethnic Group | Unknown | + + + Author + + + | Author | [facility] | | | and [place] | + + + | Organization | [facility] | | [...] Team Providers + +------+ + | Care Lasting Machine Operator Name | Role | Phone | + +------+ + | Andrey Davenport MD | PCP | | + +------+ + Encounter Details +--------+ + + + + | Date | Type | Department | Care Team | Description | +--------+ + + + + | 07/02/ | Abstract | [facility] | Marilyn Monroy | | | 2019 | | MED CTR RADIATION | MD Anupama [address] | | | | | ONCOLOGY CLINIC [address] | [facility] | | | | | [address] | [address] | | | | | [place] [address] | | | | | | [phone] | | | +--------+ + + + [...]
--- OUTSIDE RECORDS SUMMARY | ~2019-10-20 | XMS | Encounter Summary ---
Demographics + + + | Address | [address] | | | [place] [address] | + + + | Home Phone [...] + + + | Author | [facility] | | | and [place] | + + + | Organization | [facility] | | | [...] Team Providers + +------+ + | Care Credit Collection Specialist Name | Role | Phone | + +------+ + PCP | Unavailable | + +------+ + Encounter Details +--------+ + + + + | Date | Type | Department | Care Team | Description | +--------+ + + + + | 08/19/ | Hospital | [facility] | Jordan Escalera MD | | | 1995 | Encounter | MED CTR MP INTRA OP | [address] | | | | | [address] | [address] [place] | | | | | [place] | [address] | | | | | [address] | | | | | | [phone] | | | +--------+ + + + [...]
--- OUTSIDE RECORDS SUMMARY | ~2019-10-20 | XMS | Encounter Summary ---
Demographics + + + | Address | [address] | | | [place] [address] | + + + | Home Phone [...] | [facility] | | | and [...] Team Providers + +------+ + | Care Animal Shelter Clerk Name | Role | Phone | + +------+ + PCP | Unavailable | + +------+ + Encounter Details +--------+ + + + + | Date | Type | Department | Care Team | Description | +--------+ + + + + | 09/08/ | Hospital | [facility] | | | | 2007 - | Encounter | MED CTR CANCER | | | | | | CENTER [address] | | | | 09/26/ | | [place] | | | | 2007 | | [address] | | | | | | [phone] | | | +--------+ + + + [...]
--- OUTSIDE RECORDS SUMMARY | ~2019-10-20 | XMS | Clinical Summary ---
Demographics + + + | Address | [address] | | | [place] [address] | + + + | Home Phone | | + + + | Preferred Language | Unknown | + + + | Marital Status | Single | + + + | Evangelical Affiliation | Unknown | + + + | Race | White | + + + | Ethnic Group | Not or | + + + Author + + + | Author | [facility] | + + + | Organization | [facility] | + + + | Address | Unknown | + + + | Phone | Unavailable | + + + Support + + +---------+ + | Name | Relationship | Address | Phone | + + +---------+ + | Vicki Espinoza | ECON | Unknown | | + + +---------+ + Care Team Providers + +------+ + | Care Principal Accounts Clerk Name | Role | Phone | + +------+ + | Roxana Kemp PA-C | PCP | | + +------+ + Source Comments [facility] is fully live on both [facility] Ambulatory and [facility] InPatient.[facility] Allergies + + + + + [...] | MEDICA | xxxxxxxxxxx | 10/27/18 | [phone] | [address] | Medica | | | RE A & | | [address] | [address] | [address] | re | | | B | | sent | | [place] | | | | | | | | [address] | | + +--------+ +--------+ + +--------+ | [employer] MEDICARE | MODA | xxxxxxxxx | 04/29/19 | [phone] | [address] | POS | | SUPPLEMENT | MEDICA | | 17-Pre | 4 | [address] | | | | RE | | sent | | [place], | | | | SUPPLE | | | | [place] [address] | | | | MENT | | [...] leigha | | | 8 (Home) | [address] | + +--------+ +--------+ + +"
--- OUTSIDE RECORDS SUMMARY | ~2019-10-20 | XMS | Encounter Summary ---
Demographics + + + | Address | [address] | | | [place] [address] | + + + | Home Phone | | + + + | Preferred Language | Unknown | + + + | Marital Status | Single | + + + | Worship Affiliation | Unknown | + + + | Race | Unknown | + + + | Ethnic Group | Unknown | + + + Author + + + | Author | [facility] | | | and [place] | + + + | Organization | [facility] | | [...] Team Providers + +------+ + | Care Vehicle Monitor Technician Name | Role | Phone | [...] | | [address] | [place] [address] [address] | | | | | [place] [address] | | | | | | [phone] | | | +--------+ + + + [...]
--- OUTSIDE RECORDS SUMMARY | ~2019-10-20 | XMS | Encounter Summary ---
Demographics + + + | Address | [address] | | | [place] [address] | + + + | Home Phone | | + + + | Preferred Language | Unknown | + + + | Marital Status | Single | + + + | Taoism Affiliation | Unknown | + + + | Race | Unknown | + + + | Ethnic Group | Unknown | + + + Author + + + | Author | [facility] | | | and [place] | + + + | Organization | [facility] | | | and [place] [...] Team Providers + +------+ + | Care History Professor Name | Role | Phone | + +------+ + PCP | Unavailable | + +------+ + Encounter Details +--------+ + + + + | Date | Type | Department | Care Team | Description | +--------+ + + + + | 08/14/ | Hospital | [facility] | | | | 2002 - | Encounter | MED CTR CANCER | | | | | | CENTER [address] | | | | 11/12/ | | [place] | | | | 2002 | | [address] | | | | | | [phone] | | | +--------+ + + + [...]
--- OUTSIDE RECORDS SUMMARY | ~2019-10-20 | XMS | Encounter Summary ---
Demographics + + + | Address | [address] | | | [place] [address] | + + + | Home Phone [...] Organization | [facility] | | | and [place] | [...] Team Providers + +------+ + | Care Rock Mason Name | Role | Phone | + +------+ + PCP | Unavailable | + +------+ + Encounter Details +--------+ + + + + | Date | Type | Department | Care Team | Description | +--------+ + + + + | 10/15/ | Hospital | [facility] | | | | 2008 - | Encounter | MED CTR CANCER | | | | | | CENTER [address] | | | | 10/26/ | | [place] | | | | 2008 | | [address] | | | | | | [phone] | | | +--------+ + + + [...]
--- OUTSIDE RECORDS SUMMARY | ~2019-10-20 | XMS | Encounter Summary ---
Demographics + + + | Address | [address] | | | [place] [address] | + + + | Home Phone | | + + + | Preferred Language | Unknown | + + + | Marital Status | Single | + + + | Episcopal Affiliation | Unknown | + + + | Race | Unknown | + + + | Ethnic Group | Unknown | + + + Author + + + | Author | [facility] | | | and [place] | + + + | Organization | [facility] | [...] Team Providers + +------+ + | Care Private Client Advisor Name | Role | Phone | + +------+ + PCP | Unavailable | + +------+ + Encounter Details +--------+ + + + + | Date | Type | Department | Care Team | Description | +--------+ + + + + | 11/03/ | Hospital | [facility] | | | | 2001 - | Encounter | MED CTR CANCER | | | | | | CENTER [address] | | | | 02/01/ | | [place] | | | | 2001 | | [address] | | | | | | [phone] | | | +--------+ + + + [...]
--- OUTSIDE RECORDS SUMMARY | ~2019-10-20 | XMS | Encounter Summary ---
Demographics + + + | Address | [address] | | | [place] [address] | + + + | Home Phone | | + + + | Preferred Language | Unknown | + + + | Marital Status | Single | + + + | Yazidi Affiliation | Unknown | + + + | Race | Unknown | + + + | Ethnic Group | Unknown | + + + Author + + + | Author | [facility] | | | and [place] | + + + | Organization | [facility] | | | and [place] [...] Providers + +------+ + | Care Senior Analytical Chemist Name | Role | Phone | + +------+ + PCP | Unavailable | + +------+ + Encounter Details +--------+ + + + + | Date | Type | Department | Care Team | Description | +--------+ + + + + | 04/15/ | Hospital | [facility] | Jordan Escalera MD | | | 2008 | Encounter | MED CTR XRAY [address] | [address] | | | | | [address] | [address] [place] [address] | | | | | [place] [address] | [address] | | | | | [phone] | | | +--------+ + + + [...]
--- OUTSIDE RECORDS SUMMARY | ~2019-10-20 | XMS | Encounter Summary ---
Demographics + + + | Address | [address] | | | [place] [address] | + + + | Home Phone [...] + + | Author | [facility] | | | and [place] | + + + | Organization | [facility] | [...] Team Providers + +------+ + | Care Emergency Vehicle Technician Name | Role | Phone | + +------+ + | Andrey Davenport MD | PCP | | + +------+ + Reason for Visit + +--------+ + | Reason | Onset | Comments | | | Date | | + +--------+ + | Physician Call | 09/15/ | | | | 2019 | | + +--------+ + Encounter Details +--------+ + + + + | Date | Type | Department | Care Team | Description | +--------+ + + + + | 09/15/ | Telephone | [facility] | Gee, | Physician Call | | 2019 | | MED CTR MEDICAL | Michael Donato MD [address] | | | | | ONCOLOGY CLINIC [address] | [address] [place] | | | | | [address] [place] | [place] [address] | | | | | [place] [address] | [phone] | | | | | [phone] | | | +--------+ + + + [...] this encounter Miscellaneous Notes Telephone Encounter - Michael Flynn MD - 09/15/2018 2:32 PM PDTReturned call, emotherapy completed, patient is in remission, no contraindications to hernia repair. Electr onically signed by: Michael Flynn MD 09/15/2018 14:34 elephone Rozina Leiva - 09/15/2018 2:23 PM PDTDr. Gee: Please call Dr. Graham lynne regarding this patient. The patient has upcoming surgery and Dr. Whaley would like to chat prior to surgery. Please call [phone]. Thank you. documented in this encounter Plan of Treatment Not on filedocumented as of this encounter Visit Diagnoses Not on filedocumented in this encounter"
--- OUTSIDE RECORDS SUMMARY | ~2019-10-20 | XMS | Encounter Summary ---
Demographics + + + | Address | [address] | | | [place] [address] | + + + | Home Phone [...] + + + | Author | [facility] | | | and [place] | + + + | Organization | [facility] | | | and [...] Team Providers + +------+ + | Care Property Underwriter Name | Role | Phone | + +------+ + PCP | Unavailable | + +------+ + Encounter Details +--------+ + + + + | Date | Type | Department | Care Team | Description | +--------+ + + + + | 08/15/ | Hospital | [facility] | | | | 2004 - | Encounter | MED CTR GENERIC OP | | | | | | CONV DEPT [address] | | | | 11/13/ | | [address], | | | | 2004 | | [place] [address] | | | | | | [phone] | | | +--------+ + + + [...]
--- OUTSIDE RECORDS SUMMARY | ~2019-10-20 | XMS | Encounter Summary ---
Demographics + + + | Address | [address] | | | [place] [address] | + + + | Home Phone [...] + + + | Author | [facility] | | | and [place] | + + + | Organization | [facility] | | | and [...] Team Providers + +------+ + | Care Demo Coordinator Name | Role | Phone | [...] | large B-cell | [address] | [facility] | | | | | lymphoma of | [address] | [address] | | | | | extranodal | [address] [address] [place], | AVE | | | | | site | [place] [address] | [place], [place] | | | | | excluding | Phone: | [phone] | | | | | spleen and | [phone] | Phone: | | | | | other solid | Fax: | [phone] | | | | | organs (HCC) | [phone] | Fax: | | | | | Procedures | | [phone] | | | | | PET CT [...] | 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, | [address]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 [address] | [place], | | | | | lymphoma of | [address] | [place] [address] | | | | | extranodal | [place], | Phone: | | | | | site | [place] [address] | [phone] | | | | | excluding | Phone: | Fax: | | | | | spleen and | [phone] | [phone] | | | | | other solid | Fax: | | | | | | organs (HCC) | [phone] | | | | | | Procedures [...] [address] | | | | | DE OFFICE | [place], | [place], | | | | | OUTPATIENT | [address] | [place] [address] | | | | | VISIT 25 | [place], | Phone: | | | | | MINUTES | [place] [address] | [phone] | | | | | | | Fax: | | | | | | | [phone] | +--------+ + + + + + Encounter Details +--------+ + + + + | Date | Type | Department | Care Team | Description | +--------+ + + + + | 07/04/ | Hospital | [facility] | Marilyn Monroy | Diffuse large B-cell | | 2019 | Encounter | MED [facility] RAD[facility]ATION | MD Anupama [address] | lymphoma of | | | | [facility]Y CL[facility] [address] | [place], [place] | extranodal site | | | | [facility] | [address] | excluding spleen and | | | | [place] [address] | | other solid organs | | | | [phone] | | (HCC) (Primary Dx) | +--------+ [...] +---------+--------+ + documented as of this encounter Consult Notes Marilyn Monroy MD - 07/04/2018 8:43 AM PST Radiation Oncology Consultation Chief Complaint: Sukh Bolden is a 87 y.o. male seen today as a new patient at the request of Dr. Michael Flynn for evaluation and consideration of radiotherapeutic treatment. 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 History of Present Illness: Presented in November 2017 with an enlarging painful left chest wall mass. Associated B symp magaly of weight loss. MRI of the chest with and without contrast on 02/12/18: 12 x 9 x 5.3 cm mass at the left c hest wall, smooth and lobulated, extending intra-abdominal slightly. Pushing borders. CT chest on pelvis 02/13/18 at [facility] also described the large left poste rior chest wall mass, extending below the left lateral eighth rib with some intra-abdominal mass effect. Ribs intact. No adenopathy elsewhere. 5 mm right pulmonary nodule and small left pleural effusion also noted. Biopsy performed by Dr. De La Rosa on 02/24/18, pathology reporting diffuse large B-cell lymphom a, FISH negative for double hit mutation.Diffuse large B-cell lymphoma, Stage EMY, IPI score 2. (Pre-treatment PET-CT omitted due to rapid painful progression of disease.) He has been under the care of Dr. Flynn in [place]. Undergoing Mini R-CHOP startin g 03/14/18, receiving a total of 5 cycles. Last chemotherapy on 06/13/18. The 6th planned c ycles was omitted due to patient developing symptomatic Schatzki s ring and dysphagia. Hi story of dilation by Dr. De La Rosa, symptoms are improving so he plans to delay repeat EDG and d ilation. Favorable clinical response of the lymphoma mass reported by Dr. Flynn. He otherwise tolerated chemotherapy quite well noting fatigue. History of prostate cancer treated with radiation in 2002, received combination of both EBR T and seeds. No lasting sequel of treatment. Recent PSA not available to me at this time. Review of systems: Constitutional: reports energy is improving, last chem three weeks ago. Appetite is also im proving. Denies high fevers, shaking chills, anorexia, nausea, vomiting, weight loss, or ni ght sweats. Ear, Nose, Mouth, Throat: Reports dificultty swallowing due to Schatzi's ring, sometimes ca uses pain. Cardiovascular: Reports shortness of breath due to asthma. Denies chest pain, palpitation s or orthopnea. Respiratory: Denies cough, hemoptysis, or sputum production. Gastrointestinal: Reports abdominal pain due to hernia's. Reports constipation due to chemo , improving. Denies diarrhea, melena, or bright red blood per rectum. Genitourinary: Reports treated for UTI a couple of months ago, urinary function has improve d since then. Denies hematuria or dysuria. Musculoskeletal: Denies joint pain or tenderness. Neurologic: Reports tingling in left foot. Denies headache, visual changes. Endocrine: Denies peripheral edema or heat/cold intolerance. Hematologic: Denies spontaneous bruising or bleeding. Integumentary: Denies rash, wounds or other skin concerns. Pain: Denies pain. Note: Patient is here for consult today from [place] with his daughters Vicki and Dary. My chart: Declined. 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 no Comments: Do you have a connective tissue disorder such as Lupus, Scleroderma, or other: no Current Outpatient Prescriptions Medication Sig Dispense Refill albuterol (PROVENTIL) 90 [...] Other (See Comments) Intolerance No active intolerances/contraindications Past Medical History: Diagnosis Date Asthma Basal cell carcinoma of nose COPD (chronic obstructive pulmonary disease) (HCC) GERD (gastroesophageal reflux disease) Hyperlipidemia Hypertension Kidney cyst, acquired Macular degeneration disease Non Hodgkin's lymphoma (HCC) Osteoarthritis Prostate cancer (HCC) s/p external beam radiation Schatzki's ring of distal esophagus s/p dilatiation Past Surgical History: Procedure Laterality Date BRACHYTHERAPY prostate seed implants per Dr. Alaniz COLONOSCOPY ESOPHAGEAL DILATATION INSERT VENOUS ACCESS PORT UPPER GASTROINTESTINAL ENDOSCOPY Family History Problem Relation Age of Onset Stomach cancer Mother Colon cancer Father Stomach cancer Sister Stomach cancer Brother Stomach cancer Sister Cancer Brother haley Social History Social History Marital status: Single Spouse name: N/A Number of children: N/A Years of education: N/A Occupational History Not on file. Social History Main Topics Smoking status: Former Smoker Packs/day: 1.00 Years: 30.00 Quit date: 1984 Smokeless tobacco: Never Used Alcohol use No Comment: Quit 4 years ago, Drug use: Unknown Sexual activity: Not on file Other Topics Concern Not on file Social History Narrative No narrative on file Physical Exam: Vitals: 07/04/18 0826 BP: 139/61 Pulse: 73 Resp: 16 Temp: 36.1 C (97 F) Wt Readings from Last 3 Encounters: 07/04/18 73.8 kg (162 lb 11.2 oz) General: Healthy appearing elderly man in no acute medical distress. KPS: 80 HEENT: Pupils equal, round and reactive to light. No conjunctival icterus or injection. EOM I. Oral, moist mucus membranes. Lymphatic: No cervical, supraclavicular or axillary lymphadenopathy. Cardiovascular: Regular rate and rhythm, no murmur. Pulmonary: Breath sounds heard throughout, no adventitial sounds or increased work of breat geri at rest. Extremities: Upper and lower extremities warm and well perfused with no upper or lower extr emity edema. Neurologic: Alert, oriented and appropriated in conversation. CN II-IX grossly intact. Moves all 4 extremities normally with normal gait. Psychiatric: Appropriate. Left posterior chest wall demonstrates a bi-lobed soft mass, fixed. Total about 5 cm span w ith 1.5-2 cm thickness. No other nodules. No malignant skin changes. Labs: CBC: WBC 1.4, hemoglobin 9.8, hematocrit 28.8, platelet clumped (felt to be adequa te smear). CMP notable for sodium 129, protein 4.9, albumin 3.1, BUN 12, creatinine 0.8, E GFR 89, LDH 112 Imaging: Outlined above in history of present illness. Images reviewed personally. 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 Hernandez and his family the diagnosis treatment to date, as outlin ed above. We discussed the importance of consolidative radiation in the setting of initial bulky disease. This treatment is expected to improve progression free survival and overall survival. Abbreviated systemic therapy also strict since the indication for consolidative r adiation. The risks, benefits, logistics, and techniques of external beam irradiation for the treatme nt of this condition were discussed in detail including the process of simulation and treatm ent delivery. A detailed discussion regarding signs and symptoms of early(temporary) and la te(permanent) side effects occurred next. Dose range would be between 30 40 Gy over 3 4 weeks. Treatment directed at the site of disease only. A PET/CT for assessment of residua l metabolic activity at the tumor site will be requested. This will influence total dose. PET/CT will also provide systemic re-staging. Sukh verbalized understanding of the treatment recommendation and wishes to proceed to s imulation when appropriate. Simulation and PET/CT will be performed in the next few weeks. Radiation treatment to begin shortly thereafter. The information found at www.rtanswers.org was advised for further information specific to radiation therapy. Sukh was encouraged to call our clinic with any further questions or c oncerns. Thank you for allowing me to participate in the care of Sukh. If you should have any questions regarding this evaluation, please do not hesitate to contact me. Mairlyn Monroy M.D. Radiation Oncologist Department of Radiation Oncology [facility] Office: [phone] CC: Patient Care Team: Andrey Davenport MD as PCP - General (Family Medicine) Michael Flynn MD as Consulting Physician (Medical Oncology) Marilyn Monroy MD as Physician (Radiation Oncology) documented in this encounter Plan of Treatment + +---------+--------+ [...]
--- OUTSIDE RECORDS SUMMARY | ~2019-10-20 | XMS | Encounter Summary ---
Demographics + + + | Address | [address] | | | [place] [address] | + + + | Home Phone | | + + + | Preferred Language | Unknown | + + + | Marital Status | Single | + + + | Buddhist Affiliation | Unknown | + + + | Race | Unknown | + + + | Ethnic Group | Unknown | + + + Author + + + | Author | [facility] | | | and [place] | + + + | Organization | [facility] | | | and [place] [...] Team Providers + +------+ + | Care Home Economics Expert Name | Role | Phone | + +------+ + PCP | Unavailable | + +------+ + Encounter Details +--------+ + + + + | Date | Type | Department | Care Team | Description | +--------+ + + + + | 10/06/ | Hospital | [facility] | Jordan Escalera MD | | | 2001 | Encounter | MED CTR GENERIC OP | [address] | | | | | CONV DEPT [address] | [address] | | | | | [place], | [id number] | | | | | [place] [address] | | | | | | [phone] | | | +--------+ + + + [...]
--- OUTSIDE RECORDS SUMMARY | ~2019-10-20 | XMS | Encounter Summary ---
Demographics + + + | Address | [address] | | | [place] [address] | + + + | Home Phone [...] + + + | Author | [facility] | | | and [place] | + + + | Organization | [facility] | | [...] Team Providers + +------+ + | Care Glass Toughening Operator Name | Role | Phone | + +------+ + PCP | Unavailable | + +------+ + Encounter Details +--------+ + + + + | Date | Type | Department | Care Team | Description | +--------+ + + + + | 03/04/ | Hospital | [facility] | Jordan Escalera MD | | | 2006 | Encounter | MED CTR GENERIC OP | [address] | | | | | CONV DEPT [address] | [address] | | | | | [place], | [address] | | | | | [place] [address] | | | | | | [phone] | | | +--------+ + + + [...]
--- OUTSIDE RECORDS SUMMARY | ~2019-10-20 | XMS | Encounter Summary ---
Demographics + + + | Address | [address] | | | [place] [address] | + + + | Home Phone [...] + + | Organization | [facility] | | | and [place] [...] Team Providers + +------+ + | Care Technology Methodology Consultant Name | Role | Phone | [...] | | non-Hodgkin | [place], [place] | [place] [address] | | | | | lymphoma, | [address] | Phone: | | | | | unspecified | Phone: | [phone] | | | | | body region | [phone] | Fax: | | | | | (HCC) | Fax: | [phone] | | | | | | [phone] | | +--------+ + + + + [...] General | Diagnoses | | [facility] | | | | Surgery | Non-Hodgkin | [place], | General | | | | | lymphoma, | Michael C, | Surgery [address] | | | | | unspecified, | [address] | | | | | unspecified | [place], | [place], | | | | | site (HCC) | [address] | [place] [address] | | | | | Procedures | [place], | Phone: | | | | | [place] OFFICE | [place] [address] | [phone] | | | | | OUTPATIENT | | Fax: | | | | | NEW 45 | | [phone] | | | | | MINUTES | | | +--------+--------+ + + + + Encounter Details +--------+---------+ + + + | Date | Type | Department | Care Team | Description | +--------+---------+ + + + | 12/25/ | Office | [facility] | Ciara Hardin MD | Other specified type | | 2019 | Visit | SURGERY [address] | [address] [place] | of non-Hodgkin | | | | [address] [place], [place] | [place] [address] | lymphoma, | | | | [address] | [phone] | unspecified body | | | | [phone] | | region (HCC) | | | [...] + + documented in this encounter Progress Ciara Newton MD - 12/25/2018 10:00 AM PDT Consult [...] Risk Tool (ORT): Total Score 0 (12/25/18 0942) Interpretation of Total Score: 0 to 3 [...] Graham Whaley INSERT VENOUS ACCESS PORT 03/06/2018 [facility] with Dr. De La Rosa UPPER GASTROINTESTINAL [...] this chart may have been created with [employer] voice recognition software. Occasi onal wrong-word or [...] | + + +--------+ + + | [facility]in surgery | Outpatient | Routin | Other [...]
--- OUTSIDE RECORDS SUMMARY | ~2019-10-20 | XMS | Encounter Summary ---
Demographics + + + | Address | [address] | | | [place] [address] | + + + | Home Phone [...] + | Organization | [facility] | | [...] Team Providers + +------+ + | Care Park Manager Name | Role | Phone | [...] | | NIR[address] DAVID | [address] [address] [address] | | | | | [place] [address] | | | | | | [phone] | | | +--------+ + + + [...]
[~2019-10-20 13:23] MED LIST changes: -CITRUCEL500 MG PO; +DOXYCYCLINE HY100 MG PO; +IPRAT-ALBUT 0.5-3 ML INH; +METAMUCIL0.52 GM PO
--- NOTE | 2019-10-20 15:31 | EKG ---
[facility] [address] [facility] [place] [address] Signed Sinus rhythm with occasional premature ventricular complexes Left axis deviation Low voltage QRS Prolonged QT Abnormal ECG When compared with ECG of 08-JUL-2019 03:52, premature ventricular complexes are now present QT has lengthened Confirmed by MARLENE VARGAS MD ([id number]) on 10/20/2019 3:30:54 PM Electronically Signed By: MARLENE VARGAS MD 10/20/19 1531 PATIENT NAME: SEBLE LOPEZ Electrocardiogram DATE OF : 11/10[birth year] PHYSICIAN: MARLENE VARGAS MD REPORT #: [id number] REPORT IS CONFIDENTIAL AND NOT TO BE RELEASED WITHOUT AUTHORIZATION
--- NOTE | 2019-10-20 19:00 | NUR ---
PT ADMITTED FROM ER FOR RIGHT HIP FX. VSS. PT RATING PAIN 4/10 THEN 7/10 AFTER TRANSFER, GIVEN 1MG IV DILAUIDID PER ORDER. IV FLUIDS STARTED AT 125 ML/HR. CLAYTON CATH IN PLACE DRAINING YELLOW URINE. CONSENT FOR GROVER SIGNED AND WITNESSED, PLACED ON CHART.
--- NOTE | 2019-10-20 19:44 | NUR ---
BEDSIDE REPORT COMPLETED. PT STATES HE HAS "NO PAIN" NOW AFTER LAST DOSE OF PAIN MEDS. PT STATES THAT THESE PAIN MEDS (DILAUDID) HELPED MORE THAN ANY OTHER HE HAS HAD TODAY. BUCKS TRACTION AT 5LBS. PT ALERT AND ORIENTED. PT STATES HE HAS NO HUNGER AT THIS TIME. CALL LIGHT WITHIN REACH.
--- NOTE | 2019-10-20 21:30 | NUR ---
CHICKEN NOODLE SOUP, CRACKERS AND BRADLEY RAMON.
--- NOTE | 2019-10-20 21:35 | NUR ---
ASSESSMENT COMPLETE. pt IS ALERT ORIENTED TO PPT. pt STATES RIGHT HIP PAIN IS 1/10. BUCKS TRACTION IN PLACE. CLAYTON DRAINING CLEAR YELLOW URINE. CLAYTON CARE COMPLETED. pt REQUESTS SOUP, JELLO WHICH IS PROVIDED. CALL TO DR. LOWE RE: SCHEDULED MUSCLE RELAXER WHICH IS NOT AVAILABLE IN HOUSE. NEW ORDER OBTAINED FROM DR. LOWE, REPEATED BACK TO VERIFY.
--- NOTE | 2019-10-20 22:28 | NUR ---
WASHED FACE AND HANDS DONE.
--- NOTE | 2019-10-20 22:55 | NUR ---
pt AWAKE IN BED. RATES PAIN IN RIGHT HIP 10/06. PRN PAIN MEDS AND MUSCLE RELAXANT ADMINISTERED. pt REPOSITIONING SELF WITH SMALL MOUVEMENTS IN BED, RESITANT TO HELP FROM THIS NURSE. BUCKS TRACTION WEIGHT INCREASED TO 10LBS WHICH pt STATES "FEELS GOOD". pt ENCOURAGED TO USE CALL LIGHT FOR REPOSITIONING AND TO REDUCE BUCKS WEIGHT IF DESIRED. ICE PACK REAPPLIED TO HIP IT HAD SLIPPED.
--- NOTE | 2019-10-20 23:58 | NUR ---
ROUND COMPLETED. pt SLEEPING. NO SIGNS OF DISTRESS.
--- NOTE | 2019-10-21 02:36 | NUR ---
ASSESSMENT COMPLETE. pt AWAKE THIS NURSE ENTERED ROOM. pt STATES PAIN HAS AWOKEN HIM; 6 R)HIP. PRN PAIN MEDS ADMINISTERED. pt REPOSISTIONED WITH 2 NURSES, BUCKS TRACTION REDUCED TO 5LBS. ICE PACK NO LONGER COLD, REMOVED AT THIS TIME. CLAYTON DRAINING ADEQUATE YELLOW URINE. CALL LIGHT PLACED WITHIN REACH.
--- NOTE | 2019-10-21 04:51 | NUR ---
CALL LIGHT ANSWERED. pt STATES RIGHT HIP PAIN IS 6/10. PRN PAIN MEDS ADMINISTERED. pt REPOSITIONED, BUCKS TRACTION FOAM BOOT LOOSENED SLIGHTLY. SCD ON LEFT LEG. CALL LIGHT WITHIN REACH.
--- NOTE | 2019-10-21 05:50 | NUR ---
pt HAD A GOOD NIGHT AND WAS ABLE TO SLEEP WHEN PAIN WAS UNDER CONTROL. PAIN IS UNDER CONTROL WITH PRN PAIN MEDS. pt USES CALL LIGHT APPROPRIATELY. CSM IS INTACT. TAVARES TRACTION WELL TOLERATED, SCD ON LEFT LEG. CLAYTON CONTINUES TO DRAIN CLEAR YELLOW URINE WITH SUFFICIENT OUTPUT. pt IS COOPERATIVE WITH CARE.
--- NOTE | 2019-10-21 06:25 | NUR ---
SURGICAL WIPE DOWN COMPLETE. pt OFF FLOOR TO SURGERY WITH NURSE DOMINGUEZ FROM OR.
--- NOTE | 2019-10-21 07:36 | NUR ---
Pt in surgery at this time.
--- NOTE | 2019-10-21 07:45 | NUR ---
PATIENT IN SURGERY. WHITE BOARD UPDATED.
--- NOTE | 2019-10-21 09:30 | NUR ---
10/21/19 0930 Yesika Qureshi 0914-PATIENT ARRIVED TO PACU ON 6L MASK AWAKE HOB ELEVATED. SR. IVF INFUSING. YAMILETH DRESSING TO RIGHT HIP SMALL AMT OF SHADOWING ON DRESSING. PATIENT ABLE TO WIGGLE TOES. SPINAL LEVEL AT L1. PATIENT DENIES PAIN OR NAUSEA. EAR PROBE TO MEASURE 02 LEVEL FINGERS ARE COOL. 0925-PATIENT PLACED ON RA. RR EVEN. 0930-PATIENT AWAKE DENIES PAIN OR NAUSEA. ENCOURAGED DEEP BREATHING.
--- NOTE | 2019-10-21 09:30 | NUR ---
In to complete cm assessment. Pt has not returned from surgery.
--- NOTE | 2019-10-21 10:20 | NUR ---
Pt arrived to floor from surgery, a&ox4. Pt on 2l oxygen per nc, respirations even and non labored, oxygen sat level of 100%. Pt denies pain at this time. Spinal done in surgery, at approx L1 at this time. Pt has a gigi dresing to right hip; small amount of shadowing notedl; sarosang drainage noted. Water and jello provided. CMS intact to right/left leg. Green flashing light to gigi dressing. Bed alarm intact. Pt denies needs. Tranexamic acid infusing. CPOX intact. Pt has no needs. Call light within reach. Chisholm intact, patent with clr yellow urine draining.
--- NOTE | 2019-10-21 11:24 | NUR ---
Pt awake, a&ox4. Pt on ra, respirations even and non labored, 02 sat level is 100%. Pt denies pain. Spinal resolving; approx at L3 level. Cms intact to bilat lower ext, good pedal pulse to RLE. Evita dressing to right hip is intact with small amount of sarosang shadowing; green light flashing. Pt tolerating clears well; lunch ordered at this time. Daughter in room visiting. Chisholm intact, patent draining clear yellow urine. No needs at this time. Call light within reach.
[2019-10-21] MEDS ORDERED: FLOVENT HFA12 GM INH (12:05)
--- NOTE | 2019-10-21 12:09 | NUR ---
PT BACK IN FROM OR. HE IS ALERT, ORIENTED AND HIS DAUGHTER CICI AT BS. RN MONICA IN DOING VS, PT COMMENTED THAT IT WAS NICE TO SEE HIS FOOT POINTING IN THE DIRECTION IT SHOULD BE! PT RECOUNTED HIS ACCIDENT IN DETAIL.IT APPEARS TO UPSET CICI MORE THAN HIM. PAIN NOT AN ISSUE, IN GOOD SPIRITS. LEFT G.POST IN AND GAVE BLESSING. WILL FOLLOW NEEDED
--- NOTE | 2019-10-21 12:33 | NUR ---
Pt sitting up in bed, a&ox4, on ra, resp even and non labored. Pt denies pain. Right hip dressing, sarosang shadowing-unchanged from previous. Spinal at approx L2. Pt denies pain. CMS intact to right lower ext; good pedal pulse, cap refill less than three seconds. VS stable. No needs at this time. Call light within reach. Evita dressing to right hip, flashing green.
--- NOTE | 2019-10-21 13:36 | NUR ---
Pt doing well, a&ox4, on ra, resp even and non labored, 02 sat level of 97%. Spinal resolved, pt states he has no pain to right leg. Evita dressing unchanged, small amount of shadowing noted; sarosang drainage. Evita intact, green flashing light noted. SCD's and bharat hose intact. Polar ice over incision site with skin barrier. Good pedal pulses bilat; cms intact. has no needs.
--- NOTE | 2019-10-21 14:14 | NUR ---
Oxycodone 5mg po admin for reports of 4/10 right hip pain.
--- NOTE | 2019-10-21 14:21 | NUR ---
PATIENT RESTING IN BED. RN IN ROOM. VITAL SIGNS DONE BY RN. I&O DONE. CALL LIGHT WITHIN REACH. NO OTHER NEEDS AT THIS TIME
[2019-10-21] MEDS ORDERED: IPRAT-ALBUT 0.5-3 ML INH (15:22)
[2019-10-21] MEDS ORDERED: METAMUCIL0.52 GM PO (15:23)
[2019-10-21] MEDS ORDERED: IBUPROFEN200 MG PO (15:25)
--- NOTE | 2019-10-21 15:25 | NUR ---
MED REC COMPLETE
--- NOTE | 2019-10-21 17:15 | NUR ---
PATIENT SITTING UP IN BED. VITAL SIGNS AND I&O DONE. CALL LIGHT WITHIN REACH. NO OTHER NEEDS AT THIS TIME
--- NOTE | 2019-10-21 19:24 | NUR ---
Evita dressing more saturated to right hip; approx 2/3rd of dressing has notable sanguineous drainage. Dressing remains intact, no leaking noted to any of the obsite borders, drainage remains within white portion of dressing borders. More drainage noted as pt has become more ambulatory today. CMS remains intact. Evita flashing green.
--- NOTE | 2019-10-21 19:30 | NUR ---
BEDSIDE REPORT FROM NURSE ANDERSON. pt LAYING COMFORTABLY IN BED, STATES NO PAIN. CRYO CUFF ON RIGHT HIP, SCDS ON, YAMILETH BLINKING GREEN. BANDAGE HAS BLOODY DISHCARGE BUT PER DAY NURSE HAS NOT INCREASED IN LAST COUPLE HOURS. DAUGHTER OF pt WAS IN ROOM FOR REPORT AND WOULD LIKE TO SPEAK TO [facility] FROM CASE MANAGEMENT REGARDING REHAB PLANNING. pt ENCOURAGED TO INCREASE FLUID CONSUMPTION. CALL LIGHT IN REACH.
--- NOTE | 2019-10-21 21:51 | NUR ---
ASSESSMENT COMPLETE. pt CONCERNED ABOUT ASTHMA MEDS. RESOLVED WITH RT. pt CURRENTLY RATES PAIN 05/08. pt IS ALERT AND TALKATIVE IN BED. VSS, WOUND DRESSING UNCHANGED SINCE SHIFT CHANGE. SCDS ON, YAMILETH FLASHING GREEN AND INTACT, QUETA HOSE ON, CRYO CUFF ON RIGHT HIP. pt ENCOURAGED TO CONTINUE FLUID INTAKE. CLAYTON CARE COMPLETED. CLAYTON DRAINING CLEAR YELLOW URINE WITH BORDERLINE ADEQUATE URINE. pt COMPLAINED OF IRRIATION WITH WRIST IV. WRIST IV DC'D. IV IN L)AC PATENT. CALL LIGHT WITHIN REACH.
--- NOTE | 2019-10-21 22:37 | NUR ---
PHONE CALL TO MD REGARDING ASTHMA MEDS. ORDERS RECEIVED FOR PTS OWN MED USE FROM MD. MEDICATIONS VERIFIED WITH TELEPHARMACY BY CAMERA.
--- NOTE | 2019-10-22 00:16 | NUR ---
ROUNDS COMPLETE. pt sLEEPING. NO SIGNS OF DISTRESS.
--- NOTE | 2019-10-22 01:46 | NUR ---
pt ASSESSMENT COMPLETE. pt REPOSITIONED AND HEEL PROTECTORS REMOVED PER PATIENT REQUEST. SURGICAL DRESSING MORE SATURATED ALTHOUGH STILL WITHIN GAUZE BOUNDARIES. YAMILETH NOW FLASHING ORANGE. CRYO CUFF ICE REFRESHED, SCDS ON, pt REPORTS PAIN IS 1/10. CALL LIGHT WITHIN REACH.
--- NOTE | 2019-10-22 02:57 | NUR ---
ROUNDS COMPLETE. pt SLEEPING. NO SIGNS OF DISTRESS.
--- NOTE | 2019-10-22 06:30 | NUR ---
pt HAD A GOOD NIGHT. pt REPORTS PAIN HAS BEEN UNDER CONTROL ALL NIGHT WITH SCHEDULED PAIN MEDICATIONS. SURGICAL DRESSING HAS DRAINAGE FILLING GAUZE BUT IS NOT SEEPING OR DRAINING OUTSIDE OF YAMILETH CLEAR BANDAGING. YAMILETH CONTINUES TO FLASH ORANGE. CRYO CUFF HAS REMAINED IN PLACE ON RIGHT HIP ALL NIGHT, QUETA HOSE ON, SCDS ON. pt WAS UP TO BS WITH 3P ASSIST TO ATTEMPT BM BUT WAS ONLY ABLE TO PASS GAS. pt COMPLAINS OF GASTRIC REFLUX. CLAYTON IS DRAINING ADEQUATE AMOUNTS OF CLEAR YELLOW URINE.
--- NOTE | 2019-10-22 07:10 | NUR ---
Spoke with Sukh. He is drinking ensure. Denies c/o.
--- NOTE | 2019-10-22 07:30 | NUR ---
Dr Santiago stopped by my office. Would like placement for this pt for rehab 6-8 weeks. He will be on [facility]. Informed I will discuss with pt and family today.
--- NOTE | 2019-10-22 07:44 | OR ---
[facility] [address], [place] [address] Signed DATE OF OPERATION: 10/21/2019 SURGEON: Genet Santiago MD PREOPERATIVE DIAGNOSIS: Displaced comminuted subtrochanteric right hip fracture. POSTOPERATIVE DIAGNOSIS: Displaced comminuted subtrochanteric right hip fracture. PROCEDURE PERFORMED: Open reduction and internal fixation of right hip. WEIGHER AND MIXER: DALJIT Sanchez. Ele was present and critical for all portions of the procedure including positioning, retraction, assistance with fracture reduction and closure. ANESTHESIA: Spinal. BLOOD LOSS: 200 mL. IMPLANTS: Synthes 12 x 170 TFN with 110 mm lag bolt and 38 mm distal screw. BRIEF HISTORY: Sotero is an 88-year-old gentleman, who was out fishing yesterday when he suffered a ground level fall fracturing his hip. He was eventually taken to the emergency room where radiographs showed the fracture. He was admitted and cleared by the Medicine Service. DESCRIPTION OF PROCEDURE: He was brought to the operating room this morning and after adequate anesthesia, he was placed in the traction table. The left leg was flexed, abducted, and externally rotated. The right was placed in a foot traction and Leadbetter maneuver was performed. The fracture was partially reduced with this, however, was not completely reduced. The hip was then prepped and draped in a standard sterile fashion. A 6-inch incision was made just distal to the greater trochanter on the lateral side of the hip, carried through the skin and subcutaneous tissue. The IT band was divided longitudinally and Electronically Signed By: GENET SANTIAGO MD 10/22/19 0744 PATIENT NAME: SEBLE LOPEZ OPERATIVE REPORT DATE OF : 11/10/30 REPORT #: [id number] PHYSICIAN: GENET SANTIAGO MD PCP: LISA BLANKENSHIP MD REPORT IS CONFIDENTIAL AND NOT TO BE RELEASED WITHOUT AUTHORIZATION [facility] [address], [place] [address] Signed the vastus lateralis was divided bluntly using was developed anteriorly and posteriorly and the fracture was palpated. It was then reduced using a bone hook and clamp. This was held in position. Image showed good reduction at that point. We did bring the leg into some abduction to do that. We then placed a 2.0 K-wire in the superior position to hold the fracture out and the leg was re-abducted and adducted. Approach was then made to the greater trochanter through a separate 2-inch incision. This was carried through the skin and subcutaneous tissue and directly down the trochanter. A guidewire was advanced from the tip of the trochanter into the shaft of the femur. The proximal end was then reamed with a 16 mm reamer. We then switched this for a long guide isela and reamed distally up to 12.5. We placed a 12 isela into the femur over the guide isela and advanced until it was as far down as I could get it actually. The guide assembly for the lag bolt was then advanced to the lateral femur. I had previously placed a cable around the calcar region of the femur and this was moved out of the way to allow positioning of the guide assembly. The guidewire was then advanced from the lateral femur across the femoral neck into the femoral head and checked using biplanar fluoroscopy and found to be adequately placed. This was then overdrilled using the long reamer and a 110 was selected. We then impacted until it was well seated. He had excellent bone quality and the leg ball was locked from the superior screw. Distal interlocking screw was then placed. No extra incision was needed for this. The wound was copiously irrigated with antibiotic solution. Final radiographs showed good reduction of the fracture with good placement and length of hardware. The wounds were copiously irrigated once again. The deep fascia was closed using #2 Stratafix, subcutaneous tissue with #0 Stratafix, and the skin with vinita. Wound was dressed with a large YAMILETH wound VAC dressing. He was awakened and taken to the recovery room in satisfactory condition. All sponge, needle, and instrument counts were correct. Genet Santiago MD BA/MODL /[id number] Copies: Electronically Signed By: GENET SANTIAGO MD 10/22/19 0744 PATIENT NAME: SEBLE LOPEZ OPERATIVE REPORT DATE OF : 11/10/30 REPORT #: [id number] PHYSICIAN: GENET SANTIAGO MD PCP: LISA BLANKENSHIP MD REPORT IS CONFIDENTIAL AND NOT TO BE RELEASED WITHOUT AUTHORIZATION [address] [address] Signed ~ Electronically Signed By: GENET SANTIAGO MD 10/22/19 0744 PATIENT NAME: SEBLE LOPEZ JERMAINE OPERATIVE REPORT DATE OF : 11/10/30 REPORT #: [id number] PHYSICIAN: GENET SANTIAGO MD PCP: LISA BLANKENSHIP MD REPORT IS CONFIDENTIAL AND NOT TO BE RELEASED WITHOUT AUTHORIZATION
--- NOTE | 2019-10-22 09:42 | NUR ---
PT IS ALERT IN GOOD SPIRITS, DR LOWE IN TO SEE PT, REQUESTED PICCO DRSG BE CHANGED, DRSG CHANGED AND IS NOW FLASHING GREEN. INCISION IS WELL APPROX WITH DAVID, NO NEW DRAINAGE NOTED. THERAPY IN TO WORK WITH PATIENT.
--- NOTE | 2019-10-22 10:00 | NUR ---
CM assessment completed with Sukh. He lives alone in a 1 story home with 2 steps. Does not use any DME. Discussed SNF's in the area and he declines to go to T[facility], [facility] [place], [facility], and [facility] discussed with patient and current rules for visitation. Pt would like to discuss with his daughter. Discussed he may need up to 8 weeks rehab and will also need transport to the SNF. Pt states prior to his fall he was independent and continues to drive. Informed I will return and visit with his jesseauter when she comes in.
--- NOTE | 2019-10-22 10:26 | NUR ---
CALL PLACED TO DR LOWE OFFICE TO CLARIFY WT BEARING STATUS, PT IS TO BE TO TOUCH ONLY.
--- NOTE | 2019-10-22 11:00 | NUR ---
Daughter Vicki arrived, returned to room and questions answered. Discussed rehab and placement, transport, visititation and isolation for 14 days at SNFS. Payment by medicare for first 21 days and need to confirm with the SNF if their secondary will pay the copay after the 21 days. Brochure given for [facility]; pt and daughter reviewed. Face sheet, progress notes, surgery note, consult, PT eval/notes faxed to Dustin morales. Attemted to call and unable to reach. Message left.
--- NOTE | 2019-10-22 12:59 | NUR ---
PT HAS JUST FINISHED P.T.-DAUGHTER CICI PRESENT. PT TO HAVE X-RAY TAKEN FOR POSSIBLE FRACTURE IN R LEG. QUESTIONS ASKED AND ANSWERED REGARDING TRANSFER TO SNF. GAVE BLESSING AND ENCOURAGEMENT.
--- NOTE | 2019-10-22 13:34 | NUR ---
ORDER RECIEVED TO DC CLAYTON CATHETER.
--- NOTE | 2019-10-22 15:51 | NUR ---
PT VOIDED 175ML YELLOW URINE IN URINAL AND INCONTINENT OF URINE X1. READING NEWSPAPER, IN GOOD SPIRITS, SMALL AMOUNT OF DRAINAGE ON PICCO DRSG ON DISTAL END, FLASHING GREEN. CALL LIGHT IN EASY REACH.
--- NOTE | 2019-10-22 16:56 | NUR ---
RE-FILLED HIS CRYO. PATIENT IS TALKING ON HIS PHONE AND DAUGHTER IS IN THE ROOM.
--- NOTE | 2019-10-22 18:19 | NUR ---
PT ATE 75% OF DINNER, TAKING PO FLUIDS WELL, VOIDING QS. STATES HE IS COMFORTABLE PICCO DRSG WITH SHADOWING UNCHANGED, FLASHING GREEN, HEELL PROTECTORS AND CRYO IN PLACE, CALL LIGHT IN EASY REACH.
--- NOTE | 2019-10-22 19:00 | NUR ---
SHIFT REPORT RECEIVED FROM DAYSHIFT BERNICE ELIZALDE AT BEDSIDE. PT AWAKE AND RESTING IN BED, DENIES NEEDS OR CONCERNS. YAMILETH DRESSING FLASHING GREEN, DRESSING INTACT. SCANT OLD SEROSANGUINEOUS SHADOWING, WILL MONITOR. CALL LIGHT IN REACH.
--- NOTE | 2019-10-22 20:40 | NUR ---
ASSESSMENT COMPLETE, SCHEDULED MEDS GIVEN (SEE EMAR). PT A/O, VSS. PAIN TOLERABLE AT 3/10 IN RIGHT HIP. DRESSING INTACT, GREEN OKAY LIGHT FROM YAMILETH FLASHING. CMS INTACT, PT REPORTS BASELINE TINGLING TO BLE SINCE "AFTER CHEMO STARTED". PEDAL PULSES NOTED. QUETA SARAH AND SCD'S IN PLACE. CALL LIGHT IN REACH.
--- NOTE | 2019-10-22 20:42 | NUR ---
CRYO CUFF FILLED WITH ICE. pt GIVEN ICE WATER. NOTHING FURTHER NEEDED.
--- NOTE | 2019-10-22 22:00 | NUR ---
SCHEDULED TYLENOL GIVEN (SEE EMAR) FOR 1-2/10 PAIN. PT DENIES FURTHER NEEDS, CALL LIGHT IN REACH. NO DISTRESS NOTED.
--- NOTE | 2019-10-23 00:30 | NUR ---
PT RESTING IN BED WITH EYES CLOSED. RR EVEN AND UNLABORED, NO DISTRESS NOTED. CALL LIGHT IN REACH.
--- NOTE | 2019-10-23 02:31 | NUR ---
scheduled toradol given for 2/10 pain in right hip (see emar). pt a/o, denies sob or dyspnea. lung sounds clear, pt denies chest pain. no changes in apperance to gigi dressing, green light remains flashing. bilateral bharat hose, scd's and heel protectors in place. pedal pulses noted. urinal emptied, pt boosted and repositioned with help from bernadette solomon. no further needs, call light in reach.
--- NOTE | 2019-10-23 04:59 | NUR ---
PT HAD A DULCE, SLEPT FOR MOST OF SHIFT. ALERT AND ORIENTED, VSS. CALLS APPROPERIATELY. 2PA WITH FWW, TTWB TO RLE. VOIDING QS, DUE FOR BM. YAMILETH DRESSING, FLASHING GREEN. SCD'S, QUETA HOSE, AND HEEL PROTECTORS. REGULAR DIET, TOLERATING WELL. NO NAUSEA REPORTED.
--- NOTE | 2019-10-23 06:22 | NUR ---
scheduled tylenol given (see emar). vs and i&o's also done and charted. fresh ice water given, no further needs. call light in reach.
--- NOTE | 2019-10-23 07:19 | NUR ---
Phone message from [facility] from last night at 1900. They are full at this time, but could admit on Saturday or Saturday of next week. Will notify Dr. Santiago and pt.
--- NOTE | 2019-10-23 08:49 | NUR ---
ONE PERSON ASSIST USING FWW AND TTWB TO R LEG UP TO RECLINER FOR BREAKFAST. IN GOOD SPIRITS AND FOLLOWS INSTRUCTION WELL, PICCO DRSG INTACT WITH SCANT AMOUNT OLD DRAINAGE NOTED, FLASHING GREEN, CUP OF COFFEE PER REQUEST, BREAKFAST ORDERED. SCHEDULED MEDS GIVEN, OXYCODONE 5MG GIVEN PRIOR TO WORKING WITH THERAPY. CALL LIGHT IN REACH.
--- NOTE | 2019-10-23 09:50 | NUR ---
DAughter in room. She and pt updated to possible dc on Saturday to [facility]. Updated Dustin will let me know on Saturday.
--- NOTE | 2019-10-23 10:24 | NUR ---
PT MOTIVATED AND COOPERATIVE WITH PT. IN GOOD SPIRITS, WANTS TO STAY SITTING UP IN RECLINER, CALL LIGHT IN EASY REACH,
--- NOTE | 2019-10-23 10:29 | NUR ---
Called [facility] and confirmed with Zoey we would like pt to go to [facility] on Saturday as per Dustin's request on the phone. Called and tentatively scheduled transport per [facility] for Saturday to [place]. They request we call them first thing on Saturday as they have an opening and could transport in the afternoon. Let them know it maybe Tues. if no rooms available.
--- NOTE | 2019-10-23 11:31 | NUR ---
PT IS ALERT, ORIENTED AND VISITING WITH HIS DAUGHTER CICI. PT IS SITTING IN CHAIR, MENTIONED HOW OT DEE HELPED HIM LEARN TO PUT SOCKS ON HIMSELF, WITH HELP OF A TOOL. PT ADMITS THINGS ARE DIFFICULT, BUT SEEMS DETERMINED TO WORK TO LITERALLY AND FIGURETIVELY GET BACK ON HIS FEET. PT WILL GO TO [place] [address] NEXT WEEK, BOTH SEEM ACCEPTING OF THIS DECISION. BOTH WOULD LIKE HEARING THE RESULTS OF THURS X-RAY, WILL PASS ON TO [facility]. PT ACCEPTED A [facility]. GAVE JEANETTE
--- NOTE | 2019-10-23 14:00 | NUR ---
DULCOLAX SUPP GIVEN FOR CONSTIPATION, PT HAD LARGE BM, ASSISTED ONTO BED FOR A NAP, STATES HE FEELS MUCH BETTER. DENIES ANY NEEDS.
--- NOTE | 2019-10-23 17:07 | NUR ---
PATIENT SET UP IN CHAIR THROUGHT BREAKFAST AND LUNCH. NOW PATIENT IS LAYING IN HIS BED SLEEPING UNTIL HIS DINNER GOT THERE NOW HE IS UP EATING HIS DINNER.
--- NOTE | 2019-10-23 18:20 | NUR ---
PT HAS HAD A GOOD DAY, GOOD PAIN CONTROL, UP TO RECLINER WITH ONE PERSON ASSIST USING FWW AND TTWB FOR ALL MEALS, PICCO DRSG INTACT TO R HIP, CRYO IN PLACE TO HIP WHEN IN BED, MOTIVATED AND WORKING WELL WITH THERAPY. BOWEL CARE TODAY WITH LARGE RESULTS, GOOD APPETITE. USING CALL LIGHT APPROPRIATELY.
--- NOTE | 2019-10-23 19:07 | NUR ---
SHIFT REPORT RECEIVED FROM DAYSHIFT BERNICE ELIZALDE AT BEDSIDE. PT AWAKE AND VOIDING VIA URINAL. NO NEEDS VERBALIZED, CALL LIGHT IN REACH.
--- NOTE | 2019-10-23 21:10 | NUR ---
ASSESSMENT COMPLETE, SCHEDULED MEDS GIVEN (SEE EMAR). PT AWAKE AND RESTING IN BED, ASSISTED WITH REPOSITIONING. ABLE TO BOOST SELF IN BED. REPORTED SOME NUMBNESS IN LLE, BILATERAL PEDAL PULSES NOTED. RESOLVING AFTER REPOSITIONING. BILATERAL QUETA HOSE, SCD'S, AND HEEL PROTECTORS IN PLACE. YAMILETH DRESSING INTACT, SMALL AMOUNT OF DRY SERSANGUINEOUS SHADOWING NOTED, WILL MONITOR. PT REPORTS TOLERABLE 1/10 PAIN. CYRO CUFF ICE REPLACED BY PRECISION LENS POLISHER JULY. URINAL EMPTIED, NO FURTHER NEEDS. CALL LIGHT IN REACH.
--- NOTE | 2019-10-23 21:18 | NUR ---
VITALS AND I&OS DONE AND CHARTED. FRESH ICE WATER GIVEN. FILLED CRYO WITH FRESH ICE. BEDSIDE TABLE AND CALL LIGHT IN REACH. EMPTIED URINAL WELL. PT NEEDS NOTHING MORE AT THIS TIME.
--- NOTE | 2019-10-23 22:30 | NUR ---
SCHEDULED TYLENOL GIVEN (SEE EMAR). PT CONTINUES TO REPORT TOLERABLE 1/10 PAIN. NO ADDITIONAL NEEDS AT THIS TIME, CALL LIGHT IN REACH.
--- NOTE | 2019-10-24 00:47 | NUR ---
PT RESTING QUIETLY IN BED, STATES "THERE MUST BE SOMETHING IN THIS ROOM SITRING UP MY ASTHMA". RT CALLED FOR PRN INHALER PER PT REQUEST. NO ADDITIONAL NEEDS, CALL LIGHT IN REACH.
--- NOTE | 2019-10-24 01:30 | NUR ---
urinal emptied per pt request. pt reports feeling better after inhaler treatment, no further needs or concerns. call light in reach.
--- NOTE | 2019-10-24 02:48 | NUR ---
ASSESSMENT COMPLETE, NO NEW CHANGES OR CONCERNS. SCHEDULED TORADOL GIVEN FOR 1/10 PAIN IN RIGHT KNEE. YAMILETH DRESSING INTACT, NO NEW SHADOWING. GREEN OKAY LIGHT FLASHING. CYRO CUFF IN PLACE, BILATERAL QUETA HOSE, SCD'S, AND HEEL PROTECTORS IN PLACE. NO FURTHER NEEDS, PT BOOSTED SELF IN BED. CALL LIGHT IN REACH.
--- NOTE | 2019-10-24 04:45 | NUR ---
PT HAD AN UNEVENTFUL NIGHT, SOME DIFFICULTY SLEEPING DUE TO ASTHMA. RESOLVED WITH PRN BREATHING TREATMENT. A/O AND CALLS APPROPERIATELY. VSS, 2PA WITH FWW. YAMILETH DRESSING TO RIGHT HIP, WORKING WELL. NO NEW SHADOWING. REGULAR DIET, TOLERATING WELL. NO NAUSEA. PAIN VERY WELL CONTROLLED WITH SCHEDULED MEDS. BILATERAL QUETA HOSE, SCD'S, AND HEEL PROTECTORS IN PLACE. VOIDING QS, NO BM THIS SHIFT.
--- NOTE | 2019-10-24 06:12 | NUR ---
VS AND I&O'S DONE. SCHEDULED TYELNOL GIVEN FOR 3/10 RIGHT HIP PAIN. CYRO CUFF REPLACED BY SAMPLE PASTER JULY. NO FURTHER NEEDS, CALL LIGHT IN REACH.
--- NOTE | 2019-10-24 06:31 | NUR ---
VITALS AND I&OS DONE AND CHARTED. CRYO FILLED. FRESH ICE WATER GIVEN. GARBAGES EMPTIED. BEDSIDE TABLE AND CALL LIGHT IN REACH.
--- NOTE | 2019-10-24 06:32 | NUR ---
PT CALLED WANTING TO USE THE BATHROOM. I WENT IN AND HELPED HIM TO THE BSC WITH HIS FWW. HE WILL CALL WHEN HE IS READY TO GO BACK TO BED.
--- NOTE | 2019-10-24 06:43 | NUR ---
HELPED PT TO THE CHAIR FROM THE BS WITH HIS FWW PER HIS REQUEST. I ASKED HIM IF I COULD BRING THE CRYO OVER NEXT TO HIM SO HE COULD USE IT, HE SAID NO NOT RIGHT NOW. EMPTIED GARBAGE AGAIN. CALL LIGHT AND BEDSIDE TABLE IN REACH. I CALLED RT PER HIS REQUEST FOR A BREATHING TREATMENT.PT NEEDS NOTHING MORE AT THIS TIME.
--- NOTE | 2019-10-24 08:00 | NUR ---
ONE PERSON ASSIST USING FWW AND TTWB INTO BATHROOM, MED BM, BACK TO RECLINER FOR BREAKFAST, MEDICATED FOR 5/10 PAIN IN R HIP AND LEG, STATES HE FEELS STIFF THIS AM, IN GOOD SPIRITS. CALL LIGHT IN EASY REACH.
--- NOTE | 2019-10-24 08:36 | NUR ---
PATIENT USING THE BATHROOM ASSISTED BY RN. PATIENT BACKS TO CHAIR. LINENS CHANGED. ICE WATER GIVEN. CALL LIGHT WIHIN REACH. NO OTHER NEEDS AT THIS TIME
--- NOTE | 2019-10-24 08:49 | NUR ---
CALL LIGHT ANSWERED. PATIENT SITTING UP IN CHAIR. PATIENT ASSISTED TO TRANSFER BACK TO BED, ONE PERSON ASSISTING WITH WALKER. CALL LIGHT WITHIN REACH. NO OTHER NEEDS AT THIS TIME
--- NOTE | 2019-10-24 09:00 | NUR ---
PT RESTING ON BED AFTER BREAKFAST, STATES PAIN IN R HIP WITH LITTLE CHANGE, OXYCODONE GIVEN, REPOSITIONED, PICCO DRSG INTACT AND FLASHING GREEN, NO NEW DRAINAGE, CALL LIGHT IN EASY REACH. VISITOR HERE.
--- NOTE | 2019-10-24 09:12 | NUR ---
PATIENT RESTING IN BED. VITAL SIGNS AND I&O DONE. CALL LIGHT WITHIN REACH. NO OTHER NEEDS AT THIS TIME
--- NOTE | 2019-10-24 09:48 | NUR ---
PT STATES HE IS COMFORTABLE NOW, IN GOOD SPIRITS, READING NEWSPAPER.
--- NOTE | 2019-10-24 11:28 | NUR ---
CALL LIGHT ANSWERED. PATIENT RESTING IN BED. PATIENT USES THE BATHROOM, ONE PERSON ASSISTING WITH WALKER AND GAIT BELT. PATIENT BACKS TO CHAIR. CALL LIGHT WITHIN REACH. NO OTHER NEEDS AT THIS TIME
--- NOTE | 2019-10-24 13:27 | NUR ---
PATIENT SITTING UP IN CHAIR. VITAL SIGNS AND I&O DONE. LOW DYASTOLIC BLOOD PRESSURE. RN NOTIFIED. PATIENT ASSISTED TO GO BACK TO BED, ONE PERSON ASSISTING WITH WALKER. CALL LIGHT WITHIN REACH. NO OTHER NEEDS AT THIS TIME
--- NOTE | 2019-10-24 14:19 | NUR ---
DR LOWE IN TO SEE PT, NO NEW ORDERS, PT IS RESTING COMFORTABLY ON BED, CALL LIGHT IN EASY REACH, DENIES ANY NEEDS.
--- NOTE | 2019-10-24 14:40 | NUR ---
CALL PLACED TO DR LOWE AND I DISCUSSED PT C/O STOMACHE BEING UPSET AFTER MEDICATIONS, RECIEVED ORDER TO DC TORADOL IV AT THIS TIME. DAUGHTER IN ROOM AND DISCUSSED MEDICATION CHANGES AND REASON SHE WAS CONCERNED REGARDING STOMACHE UPSET WELL. DENIES ANY FURTHER QUESTIONS.
--- NOTE | 2019-10-24 16:45 | NUR ---
PATIENT SITTING UP IN CHAIR. ORAL CARE DONE, ONE PERSON ASSISTING. CRYO MACHINE FILLED. CALL LIGHT WITHIN REACH. NO OTHER NEEDS AT THIS TIME
--- NOTE | 2019-10-24 17:08 | NUR ---
PATIENT SITTING UP IN CHAIR. VITAL SIGNS AND I&O DONE. CALL LIGHT WITHIN REACH. NO OTHER NEEDS AT THIS TIME
--- NOTE | 2019-10-24 18:14 | NUR ---
TORADOL DISCONTINUED, MAALOX ORDERED FOR INDIGESTION, PT HAS BEEN IN GOOD SPIRITS, UP IN CHAIR FOR MEALS, ONE PERSON ASSIST WITH FWW, TTWB, PICCO DRSG INTACT FLASHING GREEN, GOOD PAIN CONTROL. MOTIVATED AND WORKING WELL WITH REHAB.
--- NOTE | 2019-10-24 19:15 | NUR ---
SHIFT REPORT RECEIVED FROM DAYSHIFT BERNICE ELIZALDE AT BEDSIDE. PT AWAKE AND RESTING IN BED. NO NEEDS VERBALIZED, CALL LIGHT IN REACH. EYES CLOSED, RR EVEN AND UNLABORED.
--- NOTE | 2019-10-24 20:50 | NUR ---
ASSESSMENT COMPLETE, SCHEDULED MEDS GIVEN (SEE EMAR). PT REPORTS TOLERABLE 3/10 PAIN. YAMILETH DRESSING INTACT, NO NEW SHADOWING. GREEN OKAY LIGHT FLASHING. BILATERAL QUETA SARAH, SCD'S IN PLACE. PT DENIES ADDITIONAL NEEDS, CALL LIGHT IN REACH.
--- NOTE | 2019-10-24 21:02 | NUR ---
VITALS AND I&OS DONE AND CHARTED. FILLED CRYO WITH ICE. FRESH ICE WATER GIVEN. BEDSIDE TABLE AND CALL LIGHT IN REACH. PT NEEDS NOTHING MORE AT THIS TIME.
--- NOTE | 2019-10-24 21:42 | NUR ---
PT REQUESTED SCD TUBING BE MOVED OFF HIS FEET. HE DENIES FURTHER NEEDS. CALL LIGHT IS CLOSE.
--- NOTE | 2019-10-24 22:39 | NUR ---
SCHEDULED TYLENOL GIVEN (SEE EMAR) FOR 6/10 PAIN. NO FURTHER NEEDS, CALL LIGHT IN REACH.
--- NOTE | 2019-10-25 00:04 | NUR ---
PT RESTING IN BED WITH EYES CLOSED. RR EVEN AND UNLABORED. GREEN FLASHING NOTED FROM YAMILETH DRESSING. CALL LIGHT IN REACH.
--- NOTE | 2019-10-25 00:30 | NUR ---
PT REQUESTING PRN INHALER DUE TO SOB, RT IN ROOM WITH PT. PT DENIES FURTHER NEEDS. CALL LIGHT IN REACH.
--- NOTE | 2019-10-25 02:50 | NUR ---
PT REQUESTING SOMETHING TO HELP "RELAX" RIGHT HIP/LEG. PRN PAIN PILL GIVEN FOR 10/10 PAIN (SEE EMAR). PT ASSISTED WITH REPOSITIONING, BOOSTED SELF IN BED. QUETA HOSE TAKEN OFF PER PT REQUEST FOR COMFORT. RIGHT SCD ALSO OFF. SCD AND HEEL PROTECTOR TO LLE REMAIN IN PLACE. PT REPORTING IMPROVED COMFORT, WILL MONITOR. YAMILETH DRESSING INTACT, GREEN LIGHT FLASHING. NO FURTHER NEEDS, CYRO CUFF IN PLACE. CALL LIGHT IN REACH.
--- NOTE | 2019-10-25 03:15 | NUR ---
PT APPEARS COMFORTABLE FOLLOWING PAIN MEDICATION, EYES CLOSED. RR EVEN AND UNLABORED. AUDIBLE SNORING NOTED. CALL LIGHT IN REACH.
--- NOTE | 2019-10-25 03:59 | NUR ---
PT HAD A GOOD NIGHT, PAIN CONTROLLED WITH SCHEDULED TYLENOL AND PRN OXYCODONE. A/OX4, VSS. CALLS APPROPERIATELY. SCD'S, QUETA HOSE, AND HEEL PROTECTORS TO BLE. YAMILETH DRESSING INTACT AND WORKING WELL. 1PA WITH FWW, RLE TOE TOUCH. VOIDING QS, NO BM THIS SHIFT.
--- NOTE | 2019-10-25 05:26 | NUR ---
VS AND I&O'S DONE. NEW ICE TO CYROCUFF. PRN MALOX ALSO GIVEN (SEE EMAR). NO FURTHER NEEDS, CALL LIGHT IN REACH.
--- NOTE | 2019-10-25 05:52 | NUR ---
HELPED PT FROM THE BATHROOM TO HIS CHAIR WITH HIS FWW. HE ASKED FOR A BREATHING TREATMENT I INFORMED HIS RN NYLA AND CALLED RT NATALIA. BEDSIDE TABLE AND CALL LIGHT IN REACH.
--- NOTE | 2019-10-25 06:24 | NUR ---
SCHEDULED TYLENOL GIVEN FOR 5/10 PAIN (SEE EMAR). PT RESTING IN THE CAHIR, CALL LIGHT IN REACH. NO FURTHER NEEDS VERBALIZED.
--- NOTE | 2019-10-25 06:41 | NUR ---
PER PT REQUEST I HELPED HIM BACK TO HIS CHAIR WITH HIS FWW. CRYO CUFF PUT BACK ON. BEDSIDE TABLE AND CALL LIGHT IN REACH. EMPTIED GARBAGE AGAIN. PT ASKED TO NOT WEAR HIS HEAL PROTECTORS AND SCD'S.
--- NOTE | 2019-10-25 07:10 | NUR ---
BEDSIDE REPORT FROM NYLA QUEEN. NO SL, PT IN BED DENIES NEEDS, DRSG WITH OLD DRAINAGE. PT HAD SCDS, AND TEDS REMOVED BY SEISMIC PROSPECTING OBSERVER PER HIS REQUEST FOR A BREAK. NO EDEMA NOTED. BM NOTED THIS AM AND PT DENIES NEEDS.
--- NOTE | 2019-10-25 08:30 | NUR ---
PT ASSESSMENT DONE, DRSG INTACT WITH YAMILETH, CRYO CUFF WORKING AND ON. DENIES NEED, ALERT AND FRIENDLY. CALL LIGHT IN REACH
--- NOTE | 2019-10-25 08:32 | NUR ---
PATIENT SITTING UP IN BED. RN IN ROOM.WITHE BOARD UPDATED. CALL LIGHT WITHIN REACH. NO OTHER NEEDS AT THIS TIME
--- NOTE | 2019-10-25 09:17 | NUR ---
PATIENT SLEEPY. VITAL SIGNS AND I&O DONE. LOW DYASTOLIC BLOOD PRESSURE. RN NOTIFIED. CALL LIGHT WITHIN REACH. NO OTHER NEEDS AT THIS TIME
--- NOTE | 2019-10-25 11:00 | NUR ---
DR LOWE HERE TO SEE PT NO CHANGES. RN AWARE OF LOW DYASTOLIC BP - TRENDING LOW. ASYMPTOMATIC. PT VISITING WITH FRIEND. DENIES NEEDS - VOID 200 ML URINAL
--- NOTE | 2019-10-25 11:30 | NUR ---
CALL LIGHT ANSWERED. PATIENT RESTING IN BED. PATIENT USES THE BATHROOM, ONE PERSON ASSISTING WITH WALKER AND GAIT BELT. PATIENT BACKS TO CHAIR. PATIENT ASKS FOR PAIN MEDICINE. RN NOTIFIED. ENSURE AND ICE WATER GIVEN. CALL LIGHT WITHIN REACH. NO OTHER NEEDS AT THIS TIME
--- NOTE | 2019-10-25 11:39 | NUR ---
call to rt - pt requesting his meds. rt in er. this rn assisted pt in his scheduled dose of combivent. pt happy.
--- NOTE | 2019-10-25 14:22 | NUR ---
rates pain improved - discussed d/c plans with his daugter and pt. pt in bed and comfortable.
--- NOTE | 2019-10-25 15:43 | NUR ---
PATIENT RESTING IN BED. BEDBATH DONE. ONE PERSON ASSISTING. PATIENT USING A CLEAN GOWN AND ADULT PULL UP. CALL LIGHT WITHIN REACH. NO OTHER NEEDS AT THIS TIME
--- NOTE | 2019-10-25 16:36 | NUR ---
pt active in room, up to ch, bathroom and walk in [place] - dtg visited and anicipated d/c to snf. po pain meds tollerated well - drsg and cryo, giig wnl. pt alert and oriented. no iv. used albuterol pre medicated for activity with PT. last bm 10/24
--- NOTE | 2019-10-25 17:04 | NUR ---
pt denies needs - ordered dinner. visiting with rn about family and dinner. call light in reach.
--- NOTE | 2019-10-25 17:48 | NUR ---
PATIENT RESTING IN BED. VITAL SIGNS AND I&O DONE. ICE WATER GIVEN. CALL LIGHT WITHIN REACH. NO OTHER NEEDS AT THIS TIME
--- NOTE | 2019-10-25 19:20 | NUR ---
[facility] AT BEDSIDE. PT AWAKE AND RESTING IN BED. YAMILETH DRESSING INTACT, GREEN LIGHT FLASHING. DENIES NEEDS OR CONCERNS, CALL LIGHT IN REACH.
--- NOTE | 2019-10-25 20:20 | NUR ---
ASSESSMENT COMPLETE, SCHEDULED MEDS GIVEN ALONG WITH PRN MAALOX (SEE EMAR). VSS, PT REPORTS TOLERABLE 5/10 PAIN. DENIES NEED FOR PAIN MEDICATION, WILL WAIT FOR SCHEDULED TYLENOL. YAMILETH DRESSING INTACT, GREEN LIGHT FLASHING. NO NEW SHADOWING. BILATERAL SCD'S AND QUETA HOSE IN PLACE. PT DENIES NAUSEA, FRESH WATER GIVEN. NO FURTHER NEEDS, TECHNICAL SALES REPRESENTATIVES JULY REPLACING CYRO CUFF ICE. CALL LIGHT IN REACH.
--- NOTE | 2019-10-25 20:27 | NUR ---
VITALS AND I &OS DONE AND CHARTED. PUT TEDS ON AND SCD'S ON WELL. FILLED CRYO WITH ICE. EMPTIED GARBAGES. BEDSIDE TABLE AND CALL LIGHT IN REACH. PT NEEDS NOTHING MORE AT THIS TIME.
--- NOTE | 2019-10-25 21:33 | NUR ---
HELPED PT TO THE BATHROOM WITH HIS FWW. HE WILL CALL WHEN HE IS DONE AND READY TO GO BACK TO BED.
--- NOTE | 2019-10-25 21:51 | NUR ---
HELPED PT BACK TO BED FROM THE BATHROOM WITH HIS FWW. PUT HIS CRYO CUFF BACK ON SCD'S PUT ON. BEDSIDE TABLE AND CALL LIGHT IN REACH. PT ASKING FOR A BREATHING TREAMENT. I CALLED RT NATALIA.
--- NOTE | 2019-10-25 22:05 | NUR ---
scheduled tylenol and prn oxycodone given for 6/10 pain per pt request. no further needs, call light in reach.
--- NOTE | 2019-10-25 23:30 | NUR ---
PT RESTING IN BED, EYES CLOSED. RR EVEN AND UNLABORED, NO DISTRESS NOTED. AUDIBLE SNORING NOTED, PT APPEARS COMFORTABLE. CALL LIGHT IN REACH.
--- NOTE | 2019-10-26 01:20 | NUR ---
IN ROOM TO ANSWER CALL LIGHT, URINAL EMPTIED. NO FURTHER NEEDS, CALL LIGHT IN REACH.
--- NOTE | 2019-10-26 03:17 | NUR ---
PT RESTING IN BED WITH EYES CLOSED. RR EVEN AND UNLABORED, SCD'S AND QUETA HOSE IN PLACE. CALL LIGHT IN REACH.
--- NOTE | 2019-10-26 04:21 | NUR ---
ASSESSMENT COMPLETE, NO NEW CHANGES OR CONCERNS. URINAL EMPTIED AND FRESH WATER GIVEN PER PT REQUEST. YAMILETH DRESSING INTACT, GREEN LIGHT FLASHING. NO NEW SHADOWING OR DRAINAGE NOTED. CMS INTACT, BILATERAL PEDAL PULSES NOTED. PT REPORTS TOLERABLE 4/10 PAIN, WILL MONITOR. CALL LIGHT IN REACH.
--- NOTE | 2019-10-26 05:41 | NUR ---
scheduled tylenol given for 5/10 pain (see emar). vss and i&o's done. cyro cuff ice replaced by fire department battalion chief july. no further needs, call light in reach.
--- NOTE | 2019-10-26 07:00 | NUR ---
Called and left message for Dustin requesting he call me first thing this am, if they are unable to take John. Notified I need to [facility] transport if they cannot take today.
--- NOTE | 2019-10-26 07:37 | NUR ---
Pt in bed at this time, respirations even and non labored. Pt reports right hip/leg pain is tolerable. Gigi dressing has very small amount of dry blood noted to dressing; flashing green gigi. CMS intact to right leg. Polar ice intact.
--- NOTE | 2019-10-26 08:00 | NUR ---
PATIENT RESTING IN BED. PATIENT'S HANDS AND FACE WASHED. CALL LIGHT WITHIN REACH. NO OTHER NEEDS AT THIS TIME
--- NOTE | 2019-10-26 08:03 | NUR ---
Oxycodone 5mg po admin for reports of 4/10 right hip pain.
--- NOTE | 2019-10-26 08:50 | NUR ---
Received call from Dustin. They will accept Pt. today. Notified I will request orders. Called and confirmed with [facility] they can transport at 1:[address] they [address] Contacted Dr. Santiago and he will write orders.
[2019-10-26] MEDS ORDERED: TAMSULOSIN HCL0.4 MG PO (09:40)
[2019-10-26] MEDS ORDERED: OXYCODONE HCL5 MG PO (09:41)
--- NOTE | 2019-10-26 09:44 | NUR ---
PATIENT SITTING UP IN BED. DAUGHTER IN ROOM. VITAL SIGNS AND I&O DONE. CALL LIGHT WITHIN REACH. NO OTHER NEEDS AT THIS TIME
--- NOTE | 2019-10-26 11:00 | NUR ---
In and spoke with pt and his daughter. They are planning on dc today to [facility]. Orders are complete and have been faxed to [facility]. Updated [facility] will be here to transport pt to [facility] at 1300 today. Daughter will go home and get pt clean clothing.
--- NOTE | 2019-10-26 11:10 | NUR ---
CALL LIGHT ANSWERED. PATIENT RESTING IN BED. DAUGHTER IN ROOM. PATIENT ASKS FOR BREATHING TREATMENT, RT NOTIFIED. CALL LIGHT WITHIN REACH. NO OTHER NEEDS AT THIS TIME
--- NOTE | 2019-10-26 11:57 | NUR ---
Oxycodone 5mg po administered at this time for reports of 5/10 right hip pain.
--- NOTE | 2019-10-26 12:08 | NUR ---
Gigi dressing changed per Dr. Santiago request prior to discharge. Old dressing has small amount of old dry blood noted. Incision well approximated, no drainage, vinita intact. New gigi placed, suction intact and flashing green. Pt tolerated well.
--- NOTE | 2019-10-26 12:30 | NUR ---
Report called to BERNICE Urbano at [facility]. All questions answered.
--- NOTE | 2019-10-26 13:10 | NUR ---
Notified by RN, pt has a fever of 101.5. Informed I will call [facility]. Spoke with Dustin and he will call his director enterprise sales. [phone] Received a return call. Pt cannot admit to them until he has a repeat Covid test. Rn notified and will call the . Asked they notify [facility] he can leave.
--- NOTE | 2019-10-26 13:16 | NUR ---
PATIENT RESTING IN BED. DAUGHTER AN RN IN ROOM. VITAL SIGNS AND I&O DONE. CALL LIGHT WITHIN REACH. NO OTHER NEEDS AT THIS TIME
--- NOTE | 2019-10-26 13:33 | NUR ---
Notified Dr. Santiago regarding temperature of 101.5f po. Instructed to give Tylenol. I asked him if the facility will accept pt still; per Dr. Santiago touch base with discharge planning to determine acceptance will remain then proceed from there. [facility] called and is working on discharge.
--- NOTE | 2019-10-26 13:33 | NUR ---
PT SCHEDULED TO DC TO [facility]. PT STATED LEG WAS DOING WELL UNTIL EARLIER TODAY WHEN HE TRIED TO GET OUT OF BED ON R SIDE. GAVE ENCOURAGEMENT AND BLESSING TO PT. REMINDED HIM THAT THIS NEXT STEP USE A TOOL TO RETURN HOME. HE THANKED ME
--- NOTE | 2019-10-26 14:54 | NUR ---
Per charge nurse Samira, Dr. Santiago notified regarding [facility] request for a repeat COVID screening. BERNICE Hogan placed order for COVID screening. Pt to stay the night.
--- NOTE | 2019-10-26 15:07 | NUR ---
PATIENT RESTING IN BED. DAUGHTER IN ROOM. CRYO MACHINE FILLED. ICE WATER GIVEN. CALL LIGHT WITHIN REACH. NO OTHER NEEDS AT THIS TIME
--- NOTE | 2019-10-26 15:51 | NUR ---
Notified by shift stacker, they are running a stat covid test which should be completed by tomorrow. Per Dustin at [facility], they will accept todays orders and pt can admit tomorrow, if covid is -. Spoke with pt's daughter and updated. Plan on dc tomorrow to [facility] when Covid complete.
--- NOTE | 2019-10-26 16:14 | NUR ---
Maalox 30ml suspension admin for acid reflux complaint.
--- NOTE | 2019-10-26 16:38 | NUR ---
COVID SWAB COLLECTED SENT TO LAB NO COMPLICATIONS
--- NOTE | 2019-10-26 17:16 | NUR ---
PATIENT RESTING IN BED, VITAL SIGNS AND I&O DONE. LOW DYASTOLIC BLOOD PRESSURE. CLOUDY URINE AND OBSERVED SEDIMENTS. RN NOTIFIED. SETS UP TABLE FOR DINNER. CALL LIGHT WITHIN REACH. NO OTHER NEEDS AT THIS PAUL
--- NOTE | 2019-10-26 17:41 | NUR ---
Called Dr. Santiago to notify him of patient's burning sensation when he is urinating. Also discussed that urine appears more concentrated. Neww order obtained for UA-clean catch.
--- NOTE | 2019-10-26 19:25 | NUR ---
REPORT RECEIVED FROM NURSE ANDERSON. PT IN BED, SCDS, CRYO CUFF, QUETA HOSE, YAMILETH IN PLACE. CALL LIGHT WITHIN REACH.
--- NOTE | 2019-10-26 21:00 | NUR ---
RECEIVED CALL FROM DR LOWE, REGARDING UA RESULTS; RECEIVED ORDERS TO TREAT.
--- NOTE | 2019-10-26 21:50 | NUR ---
ASSESSMENT COMPLETE. PT IN BED, SCDS ON, QUETA HOSE ON, CRYO CUFF APPLIED TO RIGHT HIP. YAMILETH DRESSING CDI, YAMILETH BLINKING GREEN. PT IS ALERT ORIENTED AND TALKATIVE. VSS INCLUDING TEMP BACK TO NORMAL AT 97.7. PT REPORTS PAIN 2/10. URINAL PLACED ON BEDSIDE TABLE, CALL LIGHT WITHIN REACH.
--- NOTE | 2019-10-27 00:21 | NUR ---
CALL LIGHT ANSWERED. PT NEEDS URINAL EMPTIED. PT STATES NO OTHER NEEDS AT THIS TIME. CALL LIGHT AND BEDSIDE TABLE WITH URINAL WITHIN REACH.
--- NOTE | 2019-10-27 02:33 | NUR ---
ROUND COMPLETED. PT SLEEPING WITH EVEN, NON LABORED BREATHING. YAMILETH FLASHING GREEN, SCDS PUMPING, CRYOCUFF ON HIP. NO APPARENT SIGNS OF DISTRESS.
--- NOTE | 2019-10-27 03:28 | NUR ---
CALL LIGHT ANSWERED. PT REQUESTS PRN ALBUTEROL FROM HIS OWN MEDS KIT WHICH IS PROVIDED.SPO2 97%. PT THEN UP TO TOILET FOR BM. PT AMBULATED WELL WITH SBA FWW TOE TOUCH WEIGHT BEARING. ICE REFRESHED IN CRYO CUFF AND REPLACED ON HIP, SCDS ON, QUETA HOSE ON, YAMILETH FLASHING GREEN, VERY MINIMAL SEROSANGUINOUS DRAINAGE. FRESH WATER PROVIDED AND NEW GOWN AT REQUEST OF PT. CALL LIGHT WITHIN REACH.
--- NOTE | 2019-10-27 05:24 | NUR ---
PT HAD A GOOD NIGHT. SLEPT MUCH OF THE NIGHT AND WAS UP ONE TIME TO THE TOILET TO HAVE A BM. PT USES URINAL IN BED DURING THE NIGHT AND CALLS APPROPRIATELY FOR EMPTYING. YAMILETH DRESSING HAS A SCANT SEROSANGUINOUS DRAINAGE THAT IS UNCHANGED THIS SHIFT. PT TOLERATES SCDS, QUETA HOSE AND CRYO CUFF ALL NIGHT. PT REPORTS PAIN IS 2/10 AND VERY TOLERABLE. PT AMBULATES WELL WITH SBA FWW AND TOE TOUCH WEIGHT BEARING. PT REQUESTED PRN ALBUTEROL INHALER ONCE THIS SHIFT. VSS.
--- NOTE | 2019-10-27 07:27 | NUR ---
Pt resting in bed, eyes closed, respirations even and non labored. Pt has no distress noted. Personal supplies and call light within reach. No needs at this time.
--- NOTE | 2019-10-27 07:35 | NUR ---
PATIENT SITTING UP IN BED. ASSISTED PATIENT TO USE THE URINAL. WITHE BOARD UPDATED. CALL LIGHT WITHIN REACH. NO OTHER NEEDS AT THIS TIME
--- NOTE | 2019-10-27 07:40 | NUR ---
PATIENT SLEEPING. WITHE BOARD UPDATED. CALL LIGHT WITHIN REACH. NO OTHER NEEDS AT THIS TIME
--- NOTE | 2019-10-27 09:26 | NUR ---
PATIENT SITTING UP IN CHAIR. DAUGHTER IN ROOM. VITAL SIGNS AND I&O DONE. CALL LIGHT WITHIN REACH. NO OTHER NEEDS AT THIS TIME
--- NOTE | 2019-10-27 10:00 | NUR ---
Received call from Dustin from [facility]. Informed we have not received the Covid test at this time. Updated pt has a UTI and was started on . Asked if they would be willing to take this pt. without covid test. He will check with well service derrick worker.
--- NOTE | 2019-10-27 10:30 | NUR ---
Assisted pt from chair back to bed; 1pa with gait belt and walker; tolerated well.
--- NOTE | 2019-10-27 11:45 | NUR ---
Received call from Dustin, he request Labs for urine. Labs faxed, he will let me know if they will accept this pt today.
--- NOTE | 2019-10-27 12:15 | NUR ---
PT ALERT, ORIENTED AND USING HIS SPIROMETER. PT MILDLY DISAPPOINTED ABOUT SPIKING A FEVER AND DELAYING HIS MOVE TO [facility] BUT SEEMS TO UNDERSTAND THE NEED TO STAY. WAITING NOW ON RESULTS OF HIS COVID TEST FROM SATURDAY WHICH WILL SHOW WHETHER PT GOES OR STAYS. GOOD VISIT, CICI JUST LEAVING TAKING PT'S BELONGINGS HOME WITH HER. PT REQUESTED PRAYER
--- NOTE | 2019-10-27 13:12 | NUR ---
PATIENT RESTING IN BED. VITAL SIGNS AND I&O DONE. ORAL CARE DONE, ONE PERSON ASSISTING. CALL LIGHT WITHIN REACH. NO OTHER NEEDS AT THIS TIME
--- NOTE | 2019-10-27 13:40 | NUR ---
Received call from Dustin, they will accept this patient today if we can get transportation. Informed I will call his daughter, call transport and call him back.
--- NOTE | 2019-10-27 13:50 | NUR ---
Called [facility] and they are willing to transport pt, but will charge him $250. Called [facility] and they will transport pt at 1530 and charge $100.00 Called daughter and she will return to the hospital with pt's belongings. Called Dustin, and notified pt will transport. Notified Dr. Santiago and verbal order given to Dustin for DS 1 tab po x 12 tabs.
--- NOTE | 2019-10-27 14:04 | NUR ---
Administered Oxycodone 5mg po for reports of 5/10 right hip pain. Pt reports he is doing well this afternoon. Evita dressing to right hip remains CDI; flashing green. CMS intact. Pt has no needs. Call light within reach.
--- NOTE | 2019-10-27 15:28 | NUR ---
PATIENT SITTING UP IN CHAIR. DAUGHTER IN ROOM. FINAL VITAL SIGNS WERE OBTAINED PRIOR TO DISCHARGE FROM THE UNIT
--- NOTE | 2019-10-27 16:29 | DS ---
[facility] [address], [place] [address] Signed ADMISSION DATE: 10/20/2019 DISCHARGE DATE: 10/26/2019 ADMISSION DIAGNOSIS: Right subtrochanteric hip fracture. DISCHARGE DIAGNOSIS: Right subtrochanteric hip fracture. PROCEDURE PERFORMED DURING THIS HOSPITALIZATION: Right hip open reduction and internal fixation with trochanteric fixation nail. BRIEF HISTORY: Sotero is an 88-year-old gentleman, who was at [employer] and suffered a fall on the rocks fracturing his hip. He eventually flagged down a passerby and was transported to the hospital. Radiographs revealed a comminuted right subtrochanteric hip fracture. Risks and benefits of operative intervention were discussed with him and after clearance from the Medicine Service, he was taken to the operating room the next day and underwent the above-named procedure. He tolerated this well. He did have quite a bit of bleeding into his thigh that eventually resolved. His H and H remained stable, although it did dip a little bit and did not reach transfusion level and he remained completely asymptomatic during this hospitalization. He was kept on DVT prophylaxis with SCDs, TEDs, and aspirin 325 p.o. q. 12 hours. He will be discharged to alf facility for continued inpatient rehab and continued toe-touch weightbearing. He will continue on current medications. Follow up with me in 7-10 days in the office for staple removal. He will notify me if he has any problems in the interim. Genet Santiago MD BA/JOAO /[id number] Copies: Electronically Signed By: GENET SANTIAGO MD 10/27/19 1629 PATIENT NAME: SEBLE LOPEZ DISCHARGE SUMMARY DATE OF : 11/10/30 REPORT #: [id number] PHYSICIAN: GENET SANTIAGO MD PCP: LISA BLANKENSHIP MD REPORT IS CONFIDENTIAL AND NOT TO BE RELEASED WITHOUT AUTHORIZATION [facility] [address] [place], [place] [address] Signed ~ Electronically Signed By: GENET SANTIAGO MD 10/27/19 1629 PATIENT NAME: SEBLE LOPEZ DISCHARGE SUMMARY DATE OF : 11/10/30 REPORT #: [id number] PHYSICIAN: GENET SANTIAGO MD PCP: LISA BLANKENSHIP MD REPORT IS CONFIDENTIAL AND NOT TO BE RELEASED WITHOUT AUTHORIZATION
== END 2019-10-27 15:50 | DRG 481 ==
LOC: ED 13:23 → MS 18:22
PROVIDERS: ADMIT Specialist
PROC: 3E0T3BZ Introduction of Anesthetic Agent into Peripheral Nerves and Plexi, Percutaneous Approach (ICD-10-PCS; 2019-10-21)
PROC: 3E0T33Z Introduction of Anti-inflammatory into Peripheral Nerves and Plexi, Percutaneous Approach (ICD-10-PCS; 2019-10-21)
PROC: 0QS604Z Reposition Right Upper Femur with Internal Fixation Device, Open Approach (ICD-10-PCS; principal; 2019-10-21 07:00)
DX: S72.21XA Displaced subtrochanteric fracture of right femur, initial encounter for closed fracture (principal); N17.9 Acute kidney failure, unspecified; M62.82 Rhabdomyolysis; G89.18 Other acute postprocedural pain; Z20.828 Contact with and (suspected) exposure to other viral communicable diseases; M19.90 Unspecified osteoarthritis, unspecified site; H35.30 Unspecified macular degeneration; K44.9 Diaphragmatic hernia without obstruction or gangrene; K21.9 Gastro-esophageal reflux disease without esophagitis; I10 Essential (primary) hypertension; D72.829 Elevated white blood cell count, unspecified; J45.909 Unspecified asthma, uncomplicated; K59.00 Constipation, unspecified; W01.0XXA Fall on same level from slipping, tripping and stumbling without subsequent striking against object, initial encounter; Y93.89 Activity, other specified; Y92.828 Other wilderness area as the place of occurrence of the external cause; Z85.72 Personal history of non-Hodgkin lymphomas; Z85.46 Personal history of malignant neoplasm of prostate; Z88.1 Allergy status to other antibiotic agents; Z87.891 Personal history of nicotine dependence; Z88.8 Allergy status to other drugs, medicaments and biological substances; Z79.82 Long term (current) use of aspirin; Z79.52 Long term (current) use of systemic steroids; Z79.899 Other long term (current) drug therapy
CPT/HCPCS: 01210; 36415; 64447; 71045; 72170; 73502; 73560; 76942; 80048; 80053; 81001; 82550; 83036; 83605; 85025; 93005; 93010; 94640; 94760; 94762; 96374; 96376; 97110; 97116; 97162; 97165; 97530; 97535; 99285-25; C1713; C1769; C9803; G0480; J0690; J1100; J1170; J1885; J2001; J2274; J2370; J2405; J2704; J2795; J3010; J3480; J7030; J8540; U0002